=== PATIENT | female | born 2000 ===

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

== ENCOUNTER 2023-03-18 11:53 | Emergency (ER) | payer MEDICAID, SELFPAY ==
[2023-03-18 11:56] VITALS: BP 109/75; PULSE 66; RESP 18; TEMP 36.6; O2SAT 99; BMI 21.5
--- NOTE | 2023-03-18 11:58 | ED.GENADULT ---
HPI - General Adult General Chief complaint: Allergic Reaction Stated complaint: Allergic Reaction Time Seen by Provider: 03/18/23 12:14 Source: patient Mode of arrival: ambulatory Limitations: no limitations History of Present Illness HPI narrative: Patient is a 22 year old assigned female at with a history of autoimmune urticaria presenting to the emergency department today with a possible allergic reaction. Patient states that since yesterday she has felt like her tongue is swollen. Patient denies any dizziness, lightheadedness, abdominal pain, nausea, vomiting, fever, chills, blurry vision, double vision, loss of vision, chest pain, difficulty breathing, shortness of breath, back pain, night sweats, pain with urination, increased urinary frequency, increased urinary urgency, blood in her urine or stool, syncope or a near syncopal episode, recent trauma or falls, bowel incontinence, bladder incontinence, bowel retention, bladder retention, or any other complaints at this time. Patient denies any exposure to new foods or enviornmental factors. Patient states that she does follow with an entry level software engineer. Onset (ago): day(s) (1) Location: mouth Radiation: non-radiation Severity: mild Severity scale (1-10): 3 Relieving factors: none Exacerbating factors: none Associated symptoms: denies other symptoms Treatments prior to arrival: none Related Data Home Medications Medication Instructions Recorded Confirmed bupropion HCl 150 mg tablet,12 hr 150 mg PO DAILY 06/12/21 06/12/21 sustained-release (Wellbutrin SR) hydroxyzine pamoate 25 mg capsule 25 mg PO TID 06/12/21 06/12/21 melatonin 10 mg capsule 10 mg PO BEDTIME PRN 06/12/21 06/12/21 norgestimate 0.25 mg-ethinyl 1 tab PO DAILY 06/12/21 06/12/21 estradiol 35 mcg tablet (Sprintec (28)) prazosin 2 mg capsule 2 mg PO BEDTIME 06/12/21 06/12/21 prenat.vits,pillo,huu-ofst-uxhks 1 tab PO DAILY 06/12/21 06/12/21 Previous Rx's Medication Instructions Recorded acetaminophen 300 mg-codeine 30 mg 1 tab PO Q8H PRN pain #10 tabs 04/16/21 tablet prednisone 20 mg tablet 20 mg PO DAILY 7 days #7 tabs 03/18/23 Allergies Allergy/AdvReac Type Severity Reaction Status Date / Time red dye Allergy Mild hives Verified 07/10/21 11:29 Review of Systems Constitutional: Constitutional: Reports no additional constitutional complaints, Denies chills, Denies fever(s) and Denies night sweats Eyes: Eyes: Reports no additional eye complaints, Denies blurry vision, Denies change in vision, Denies diplopia, Denies eye discharge, Denies loss of vision and Denies eye pain ENT: Denies dizziness and Reports tongue swelling Cardiovascular: Cardiovascular: Reports no additional cardiovascular complaints, Denies chest pain, Denies lightheadedness, Denies Loss of Consciousness and Denies dyspnea Respiratory: Respiratory: Reports no additional respiratory complaints and Denies dyspnea Gastrointestinal: Gastrointestinal: Reports no additional gastrointestinal complaints, Denies abdominal pain, Denies melena, Denies hematochezia, Denies change in bowel habits and Denies change in stool character Genitourinary: Genitourinary: Denies hematuria, Denies urinary frequency, Denies dysuria, Denies urinary incontinence, Denies urinary hesitancy and Denies urinary urgency Musculoskeletal: Musculoskeletal: Reports no additional musculoskeletal complaints, Denies numbness and Denies tingling Neurologic: Denies dizziness, Denies loss of vision, Denies numbness and Denies tingling Psychiatric: Psychiatric: Reports no additional psychiatric complaints Endocrine: Endocrine: Reports no additional endocrine complaints Hematologic/Lymphatic: Hematologic/Lymphatic: Reports no additional hematologic/lymphatic complaints Allergic/Immunologic: Allergic/Immunologic: Reports no additional allergic/immunologic complaints and Reports tongue swelling PMFSH Past Medical History Attestation statement: The following information was validated with the patient. Source: old records reviewed and nursing notes reviewed Medical History No known health problems Surgical History History of esophagogastroduodenoscopy (EGD) Family History Family History Maternal Grandfather Diabetes HTN (hypertension) Maternal Grandmother HTN (hypertension) Mother Cancer Social History Social History Smoked in Last 30 Days: No Use of substances other than those prescribed or required for medical reasons: Yes Substance Use Type: Marijuana Substance Use Frequency: Occasionally Last Used Substance: Days (ago) Any prior treatment program specific to substance use: No Advance Directives: No Advance Directives Information Provided: No Patient : No Physical Exam ED Vital Signs: Vital Signs - 24 hr 03/18/23 11:56 Temperature 98 F Pulse Rate 66 Respiratory Rate 18 Blood Pressure 109/75 Pulse Oximetry 99 Oxygen Delivery Method Room Air BMI result Body Mass Index 21.5 Const General: cooperative, no acute distress, alert and awake Nutritional Appearance: well nourished Orientation/consciousness: patient oriented x3 Limitations: no limitations HENMT Head: Yes normal to inspection and Yes atraumatic Ears: hearing grossly normal bilaterally and external ears normal General nose exam: Normal external nose present, no nasal discharge noted and no epistaxis Face and sinus: Yes normal facial exam, No abrasion and No laceration Mouth: Normal oral and palatal mucosa present, no drooling and no muffled voice Teeth and gingiva: dentition normal Throat: Yes posterior oropharynx normal Eyes General: appearance normal, both eyes and all related structures Periorbital: periorbital findings normal Eyelids: Yes eyelids normal Conjunctivae: conjunctivae normal Pupils: Equal, round and reactive pupils present EOM: EOMs intact bilaterally Neck Neck: Yes normal visual inspection, Yes full ROM and Yes no lymphadenopathy Chest Chest palpation & inspection: normal inspection of the chest Resp Effort & Inspection: normal respiratory effort and able to speak in complete sentences GI Inspection: Yes normal to inspection Neuro General: patient oriented x3 and moves all extremities Cranial nerves: Yes Equal, round and reactive pupils present Cognition (Neuro): normal cognition Motor exam (neuro): 5/5 motor strength present throughout Sensory Exam: Normal double simultaneous stimulation for sensation Coordination: [id number] test normal Extrem General: Yes normal to inspection, Yes full ROM and Yes capillary refill normal Psych Appearance: grossly normal Mental Status: mental status grossly normal Affect: normal affect Attitude: cooperative Thought process: Normal thought process present Thought content: Normal thought content present Insight: Good insight present (Psych) Course Course Course Narrative: This is an RME: Additional HPI, ROS, PE not included below will be deferred to primary provider. 22 year old female presents w/ complaints of allergic reaction since yesterday feels like her tongue is swollen. Hasnt taken anything. Followed by allergy doc has been told this is autoimmune. Unsure what shes allergic to. Pe- patent airway speaking in full sentences. Plan- benadryl Medications Administered Discontinued Medications Generic Name Dose Route Start Last Admin Trade Name Gulshan PRN Reason Stop Dose Admin Diphenhydramine HCl 50 mg 03/18/23 11:57 03/18/23 12:12 Diphenhydramine Hcl 25 Mg Capsule PO 03/18/23 11:58 50 mg ONCE ONE Administration Medical Decision Making Medical Decision Making [facility] Narrative: Patient is a 22 year old assigned female at with a history of autoimmune urticaria presenting to the emergency department today with a swollen tongue sensation. Patient's physical exam was unremarkable. Patient's tongue appeared normal. I explained my physical exam findings to the patient. I answered all questions asked by the patient. Patient received Benadryl which she stated helped her symptoms significantly. I stressed the importance of the patient taking her medication as prescribed. I stressed the importance of the patient following up with her primary care provider and her entry level software engineer. I stressed the importance of the patient returning to the emergency department immediately if her symptoms were to worsen or if she were to develop any dizziness, shortness of breath, difficulty breathing, chest pain, blurry vision, loss of vision, nausea, vomiting, abdominal pain, fever, chills, back pain, or any other complaints. Patient verbalized agreement and understanding with this treatment plan and discharge. Differential Diagnosis Differential Diagnoses: The differential diagnosis associated with the presentation includes Allergic reaction Swollen tongue sensation Anxiety Discharge Plan Discharge Clinical Impression: Allergic reaction Patient Disposition: Home, Self-Care Instructions: General Allergic Reaction (ED) Additional Instructions: Take benadryl over the counter. Follow up with your primary care provider and your entry level software engineer. Return to the emergency department immediately if your symptoms worsen or if you develop any dizziness, shortness of breath, difficulty breathing, chest pain, blurry vision, loss of vision, nausea, vomiting, abdominal pain, fever, chills, back pain, or any other complaints. Prescriptions: New prednisone 20 mg tablet 20 mg PO DAILY 7 Days Qty: 7 0RF No Action acetaminophen-codeine 300-30 mg tablet 1 tab PO Q8H PRN (Reason: pain) Qty: 10 0RF bupropion HCl [Wellbutrin SR] 150 mg tablet sustained-release 12 hr 150 mg PO DAILY hydroxyzine pamoate 25 mg capsule 25 mg PO TID melatonin 10 mg capsule 10 mg PO BEDTIME PRN norgestimate-ethinyl estradiol [Sprintec (28)] 0.25-35 mg-mcg tablet 1 tab PO DAILY prenat.vits,pillo,khe-ecil-zqpjk Tablet 1 tab PO DAILY prazosin 2 mg capsule 2 mg PO BEDTIME Referrals: Shannon Wade FNP [Primary Care Provider] - Stand Alone Forms: Work/School Release Interventions: ED Discharge Assessment Last Done: 03/18/23 12:34 Discharge Date/Time: 03/18/23 12:35 Print Language: Urdu
[2023-03-18] MEDS: diphenhydrAMINE HCL 25 MG CAPSULE 50 MG PO (12:12)
== END 2023-03-18 12:35 | disposition home or self-care (01) ==
PROVIDERS: Emergency Provider Emergency Medicine Emergency Medical Services; PCP Registered Nurse
DX: T78.40XA Allergy, unspecified, initial encounter (principal); X58.XXXA Exposure to other specified factors, initial encounter
CPT/HCPCS: 99283; 99284

== ENCOUNTER 2023-03-28 14:05 | Outpatient (REF) | payer MEDICAID, SELFPAY ==
[2023-03-28 18:13] LABS: HCG Quantitative 7 mIU/mL
== END 2023-03-28 14:06 | disposition home or self-care (01) ==
LOC: HO.HHCL 14:05
PROVIDERS: Visit Provider Registered Nurse
DX: Z34.90 Encounter for supervision of normal pregnancy, unspecified, unspecified trimester (principal)
CPT/HCPCS: 36415; 84702

== ENCOUNTER 2023-04-04 13:47 | Outpatient (REF) | payer MEDICAID, SELFPAY ==
[2023-04-04 16:45] LABS: HCG Quantitative 4 mIU/mL
== END 2023-04-04 13:48 | disposition home or self-care (01) ==
LOC: HO.HHCL 13:47
PROVIDERS: Visit Provider Registered Nurse
DX: Z32.01 Encounter for pregnancy test, result positive (principal)
CPT/HCPCS: 36415; 84702

== ENCOUNTER 2023-04-08 14:39 | Outpatient (REF) | payer MEDICAID, SELFPAY ==
[2023-04-08 16:11] LABS: MANUAL DIFF FLAG NO
[2023-04-08 16:28] LABS: Basophils Absolute Auto 0.1 X10*3/uL (0.0-0.2); Basophils Percent Auto 0.6 % (0-2); Eosinophils Absolute Auto 0.1 X10*3/uL (0.0-0.4); Eosinophils Percent Auto 0.7 % (0-4); Hematocrit 39.3 % (37.0-47.0); Hemoglobin 13.2 g/dl (12.0-16.0); Imm Gran Abs Auto 0.04 X10*3/uL (0.00-0.03); Imm Gran Pct Auto 0.4 % (0.0-0.4); Lymphocytes Absolute Auto 1.7 X10*3/uL (1.2-4.9); Lymphocytes Percent Auto 16.7 % (20-40); Mean Corpuscular HGB Conc 33.6 g/dl (31.0-35.0); Mean Corpuscular Hemoglobin 32.4 pg (27.0-33.0); Mean Corpuscular Volume 96.6 fL (80.0-98.0); Mean Platelet Volume 11.4 fL (9.4-12.3); Monocytes Absolute Auto 0.5 X10*3/uL (0.1-1.2); Neutrophils Absolute Auto 7.8 x10*3/uL (2.0-8.3); Neutrophils Percent Auto 76.6 % (45-73); Platelet Count 200 X10*3/uL (160-400); Red Blood Count 4.07 X10*6/uL (4.20-5.50); Red Cell Distribution Width 12.8 % (11.0-16.0); White Blood Count 10.1 X10*3/uL (4.8-10.8)
[2023-04-08 16:46] LABS: HCG Quantitative 3 mIU/mL
[2023-04-08 18:18] LABS: Alanine Aminotransferase 6 U/L (0-31); Albumin Level 4.4 g/dL (3.5-5.0); Alkaline Phosphatase 43 U/L (39-117); Anion Gap 12 (12-20); Aspartate Amino Transferase 14 U/L (5-31); Bilirubin Total 0.7 mg/dL (0.0-1.0); Blood Urea Nitrogen 8 mg/dL (9-16); Calcium 9.6 mg/dL (8.4-10.2); Carbon Dioxide 22 mmol/L (22-29); Chloride 105 mmol/L (96-108); Estimated Glomerular Filt Rate > 60; Glucose Random 73 mg/dL (60-115); Iron 191 mcg/dL (30-160); Percent Iron Saturation 61 % (15-50); Sodium 135 mmol/L (135-145); Total Iron Binding Capacity 313 mcg/dL (228-428); Total Protein 7.9 g/dL (6.5-8.0); Unsaturated Iron Binding 122 ug/dL
[2023-04-08 18:34] LABS: Ferritin 58 ng/mL (10-122); Free T4 (Free Thyroxine) 0.88 ng/dL (0.71-1.85)
[2023-04-08 21:36] LABS: Prothrombin Time 11.6 SEC (10.0-13.1)
[2023-04-09 07:25] LABS: CT PCR NOT DETECTED (Not Detect.); NG PCR NOT DETECTED (Not Detect.)
[2023-04-11 08:33] LABS: Syphilis Screen Nonreactive (Nonreactive)
[2023-04-11 09:05] LABS: HBS Num1 > 1000.00 mIU/mL (0-7.99); HBc Num1 0.08 S/CO (0.00-0.79); HBsAGNum1 0.33 S/CO (0.00-0.99); HIV AB/AG Nonreactive (Nonreactive); HIV Num 1 0.05 S/CO (0.00-0.99); Hepatitis B Core Antibody Nonreactive (Nonreactive); Hepatitis B Surface Antigen Negative (Negative); ~Hepatitis B Surface Antibody REACTIVE (Nonreactive)
[2023-04-11 10:09] LABS: ~HepC Num1 0.11 S/CO (0.00-0.79); ~Hepatitis C Antibody Nonreactive (Nonreactive)
== END 2023-04-08 14:40 | disposition home or self-care (01) ==
LOC: HO.HHCL 14:39
PROVIDERS: Visit Provider Student in an Organized Health Care Education/Training Program
DX: N93.9 Abnormal uterine and vaginal bleeding, unspecified (principal)
CPT/HCPCS: 0353U; 36415; 80053; 82728; 83540; 84439; 84702; 85025; 85610; 85730; 86704; 86706; 86780; 86803; 87340; 87389

== ENCOUNTER 2023-04-08 16:25 | Outpatient (REF) | payer MEDICAID, SELFPAY ==
--- NOTE | ~2023-04-08 | US_ITS ---
EXAMINATION: US PELVIS CLINICAL INFORMATION: Worsening heavy bleeding status-post . COMPARISON: CT abdomen and pelvis dated 04/16/2021. TECHNIQUE: Ultrasound of the pelvis is performed using both transabdominal and transvaginal transducers along with Doppler. Transvaginal imaging is performed due to inadequate visualization transabdominally. FINDINGS: Uterus: The uterus is anteverted and measures 8.1 x 3.2 x 4.4 cm. The uterus is anteverted and anteflexed. The double wall endometrial thickness is 0.4 mm. There is a small amount of nonspecific free fluid within the fundal portion of the endometrial canal. There is some heterogeneity and vascularity of the endometrial stripe, without focal retained products of conception. The uterus is smooth in contour and has normal myometrial echogenicity. No visible fibroid. Adnexa: Both ovaries are visualized. There is normal color flow to the adnexa. There is no ovarian torsion. There is no pelvic ascites or fluid collection. Right ovary measures 2.7 x 2.4 x 2.5 cm, volume 8.5 mL. Left ovary measures 4.4 x 4.0 x 3.9 cm, volume 36.0 mL. The left ovary contains a 3.7 x 3.4 x 3.3 cm benign, simple cyst. US/US pelvic and transvaginal IMPRESSION: 1. A small amount of nonspecific free fluid is seen within the endometrial canal. 2. There demonstrate thickness is within normal limits. No retained products of conception are seen. 3. A 3.7 cm benign, simple dominant left ovarian cyst is seen, for which no imaging follow-up is recommended.
== END 2023-04-08 16:26 | disposition home or self-care (01) ==
LOC: HO.US 16:25
PROVIDERS: Visit Provider Student in an Organized Health Care Education/Training Program
DX: N93.9 Abnormal uterine and vaginal bleeding, unspecified (principal)
CPT/HCPCS: 76830; 76856

== ENCOUNTER 2023-05-12 16:18 | Outpatient (REF) | payer MEDICAID, SELFPAY ==
[2023-05-12 17:22] LABS: MANUAL DIFF FLAG NO
[2023-05-12 17:33] LABS: Basophils Absolute Auto 0.1 X10*3/uL (0.0-0.2); Basophils Percent Auto 0.7 % (0-2); Eosinophils Absolute Auto 0.1 X10*3/uL (0.0-0.4); Eosinophils Percent Auto 1.3 % (0-4); Hematocrit 41.4 % (37.0-47.0); Imm Gran Abs Auto 0.02 X10*3/uL (0.00-0.03); Imm Gran Pct Auto 0.3 % (0.0-0.4); Lymphocytes Absolute Auto 1.9 X10*3/uL (1.2-4.9); Lymphocytes Percent Auto 24.3 % (20-40); Mean Corpuscular HGB Conc 33.8 g/dl (31.0-35.0); Mean Corpuscular Hemoglobin 32.3 pg (27.0-33.0); Mean Corpuscular Volume 95.6 fL (80.0-98.0); Mean Platelet Volume 10.6 fL (9.4-12.3); Monocytes Absolute Auto 0.4 X10*3/uL (0.1-1.2); Monocytes Percent Auto 4.9 % (2-11); Neutrophils Absolute Auto 5.2 x10*3/uL (2.0-8.3); Neutrophils Percent Auto 68.5 % (45-73); Platelet Count 243 X10*3/uL (160-400); Red Blood Count 4.33 X10*6/uL (4.20-5.50); Red Cell Distribution Width 12.4 % (11.0-16.0); White Blood Count 7.6 X10*3/uL (4.8-10.8)
[2023-05-12 17:46] LABS: Iron 146 mcg/dL (30-160); Percent Iron Saturation 47 % (15-50); Total Iron Binding Capacity 310 mcg/dL (228-428); Unsaturated Iron Binding 164 ug/dL
[2023-05-12 18:01] LABS: Ferritin 45 ng/mL (10-122); HCG Quantitative < 2 mIU/mL
[2023-05-16 17:43] LABS: Lyme Blot 2.24 index
[2023-05-17 11:43] LABS: Lyme Abs Screen POSITIVE
[2023-05-17 14:54] LABS: 18 KD (IgG) Band REACTIVE; 23 KD (IgG) Band REACTIVE; 23 KD (IgM) Band NON-REACTIVE; 28 KD (IgG) Band NON-REACTIVE; 30 KD (IgG) Band NON-REACTIVE; 39 KD (IgM) Band NON-REACTIVE; 39KD (IgG) Band REACTIVE; 41 KD (IgM) Band REACTIVE; 41KD (IgG) Band NON-REACTIVE; 45 KD (IgG) Band NON-REACTIVE; 58 KD (IgG) Band NON-REACTIVE; 66 KD (IgG) Band NON-REACTIVE; 93 KD (IgG) Band NON-REACTIVE; Lyme IgG Blot Interp NEGATIVE (NEGATIVE); Lyme IgM Blot Interp NEGATIVE (NEGATIVE)
== END 2023-05-12 16:19 | disposition home or self-care (01) ==
LOC: HO.HHCL 16:18
PROVIDERS: Visit Provider Registered Nurse
DX: N93.9 Abnormal uterine and vaginal bleeding, unspecified (principal)
CPT/HCPCS: 36415; 82728; 83540; 84702; 85025; 86617; 86618; 87086; 87088; 87186

== ENCOUNTER 2023-06-20 11:06 | Outpatient (REF) | payer MEDICAID, SELFPAY ==
[2023-06-20 15:07] LABS: Alanine Aminotransferase 11 U/L (0-31); Albumin Level 4.4 g/dL (3.5-5.0); Alkaline Phosphatase 36 U/L (39-117); Aspartate Amino Transferase 15 U/L (5-31); Bilirubin Direct 0.2 mg/dL (0.0-0.5); Bilirubin Total 0.5 mg/dL (0.0-1.0); Total Protein 7.4 g/dL (6.5-8.0)
[2023-06-20 15:15] LABS: Hepatitis A Antibody IgM 0.18 Index (0-0.79); ~Hepatitis A Antibody IgM Nonreactive (Nonreactive)
[2023-06-20 15:19] LABS: HBS Num1 > 1000.00 mIU/mL (0-7.99); HBc Num1 0.08 S/CO (0.00-0.79); HBsAGNum1 0.43 S/CO (0.00-0.99); Hepatitis B Core Antibody Nonreactive (Nonreactive); Hepatitis B Surface Antigen Negative (Negative); ~HepC Num1 0.06 S/CO (0.00-0.79); ~Hepatitis B Surface Antibody REACTIVE (Nonreactive); ~Hepatitis C Antibody Nonreactive (Nonreactive)
== END 2023-06-20 11:07 | disposition home or self-care (01) ==
LOC: HO.CHCLDS 11:06
PROVIDERS: Visit Provider Registered Nurse
DX: R16.0 Hepatomegaly, not elsewhere classified (principal)
CPT/HCPCS: 36415; 80076; 86704; 86706; 86709; 86803; 87340

== ENCOUNTER 2023-07-22 13:54 | Outpatient (REF) | payer MEDICAID, SELFPAY ==
[2023-07-23 16:24] LABS: C. trachomatis RNA TMA NOT DETECTED (NOT DETECTED); Candida glabrata RNA NOT DETECTED (NOT DETECTED); Candida species RNA DETECTED (NOT DETECTED); N. gonorrhoeae RNA TMA NOT DETECTED (NOT DETECTED); Trichomonas vaginalis RNA NOT DETECTED (NOT DETECTED)
== END 2023-07-22 13:55 | disposition home or self-care (01) ==
LOC: HO.CHCLNP 13:54
PROVIDERS: Visit Provider Registered Nurse
DX: N94.9 Unspecified condition associated with female genital organs and menstrual cycle (principal)
CPT/HCPCS: 36415; 81513; 87481; 87491; 87591; 87661

== ENCOUNTER 2023-10-10 16:24 | Outpatient (REF) | payer MEDICAID, SELFPAY ==
[2023-10-10 20:04] LABS: Influenza A PCR NEGATIVE (Negative); Influenza B PCR NEGATIVE (Negative); Resp Syncy Virus RNA Qual PCR NEGATIVE (Negative); SARS COV2 PCR INHOUSE NEGATIVE (Negative)
[2023-10-11 22:44] LABS: C. trachomatis RNA TMA NOT DETECTED (NOT DETECTED); Candida glabrata RNA NOT DETECTED (NOT DETECTED); Candida species RNA NOT DETECTED (NOT DETECTED); N. gonorrhoeae RNA TMA NOT DETECTED (NOT DETECTED); Trichomonas vaginalis RNA NOT DETECTED (NOT DETECTED)
== END 2023-10-10 16:25 | disposition home or self-care (01) ==
LOC: HO.CHCLNP 16:24
PROVIDERS: Visit Provider Registered Nurse
DX: Z01.419 Encounter for gynecological examination (general) (routine) without abnormal findings (principal); R09.81 Nasal congestion; Z11.3 Encounter for screening for infections with a predominantly sexual mode of transmission
CPT/HCPCS: 0241U; 81513; 87481; 87491; 87591; 87661; 88142

== ENCOUNTER 2024-01-16 16:29 | Outpatient (REF) | payer MEDICAID, SELFPAY ==
[2024-01-16 18:56] LABS: Appearance Urine Cloudy; Color Urine Yellow; Glucose Urine UA Negative (Negative); Leukocyte Esterase Urine Small (1+) (Negative); Nitrite Urine Negative (Negative); PH 6.5 (5.0-9.0); UMIC TRIGGER UACC YES; Urine Blood Trace (Negative); Urine Ketones Negative (Negative); Urine Protein Negative (Neg-Trace)
[2024-01-16 19:27] LABS: Bacteria Urine 4+ (None Seen); Hyaline Casts Urine 0-2 /LPF (0-2); Squamous Epithelial Cell Urine 0-2 /HPF (0-2); UACC Culture Trigger YES; WBC Urine >50 /HPF (0-5)
== END 2024-01-16 16:30 | disposition home or self-care (01) ==
LOC: HO.CHCLNP 16:29
PROVIDERS: Visit Provider Registered Nurse
DX: R39.9 Unspecified symptoms and signs involving the genitourinary system (principal)
CPT/HCPCS: 81001; 81003; 87086; 87088; 87186

== ENCOUNTER 2024-03-16 12:34 | Outpatient (REF) | payer MEDICAID, SELFPAY ==
[2024-03-16 14:21] LABS: MANUAL DIFF FLAG NO
[2024-03-16 14:24] LABS: Basophils Absolute Auto 0.1 X10*3/uL (0.0-0.2); Basophils Percent Auto 0.9 % (0-2); Eosinophils Absolute Auto 0.1 X10*3/uL (0.0-0.4); Eosinophils Percent Auto 1.4 % (0-4); Hematocrit 40.6 % (37.0-47.0); Hemoglobin 13.9 g/dl (12.0-16.0); Imm Gran Abs Auto 0.02 X10*3/uL (0.00-0.03); Imm Gran Pct Auto 0.3 % (0.0-0.4); Lymphocytes Absolute Auto 1.9 X10*3/uL (1.2-4.9); Lymphocytes Percent Auto 29.3 % (20-40); Mean Corpuscular HGB Conc 34.2 g/dl (31.0-35.0); Mean Corpuscular Volume 90.4 fL (80.0-98.0); Mean Platelet Volume 11.2 fL (9.4-12.3); Monocytes Absolute Auto 0.4 X10*3/uL (0.1-1.2); Monocytes Percent Auto 5.5 % (2-11); Neutrophils Percent Auto 62.6 % (45-73); Platelet Count 203 X10*3/uL (160-400); Red Blood Count 4.49 X10*6/uL (4.20-5.50); Red Cell Distribution Width 13.2 % (11.0-16.0); White Blood Count 6.4 X10*3/uL (4.8-10.8)
[2024-03-16 18:16] LABS: Alanine Aminotransferase 10 U/L (0-31); Albumin Level 4.9 g/dL (3.5-5.0); Alkaline Phosphatase 43 U/L (39-117); Anion Gap 13 (12-20); Aspartate Amino Transferase 15 U/L (5-31); Bilirubin Total 0.4 mg/dL (0.0-1.0); Blood Urea Nitrogen 11 mg/dL (9-16); Calcium 9.8 mg/dL (8.4-10.2); Carbon Dioxide 22 mmol/L (22-29); Chloride 109 mmol/L (96-108); Estimated Glomerular Filt Rate > 60; Glucose Random 80 mg/dL (60-115); Potassium 3.8 mmol/L (3.3-5.1); Sodium 140 mmol/L (135-145)
[2024-03-16 18:33] LABS: TSH reflex Free T4 0.76 uIU/mL (0.32-4.0); Vitamin D 25-OH Total 38.5 ng/mL (>30)
[2024-03-16 18:46] LABS: Folate 13.4 ng/mL (> or = 4.0); Vitamin B12 337 pg/mL (200-900)
[2024-03-16 21:12] LABS: Monotest Negative (Negative)
[2024-03-20 17:57] LABS: EBV-NA IgG Index >600.00 U/mL; EBV-VCA IgM Ab <36.00 U/mL
== END 2024-03-16 12:35 | disposition home or self-care (01) ==
LOC: HO.CHCLDS 12:34
PROVIDERS: Visit Provider Registered Nurse
DX: L65.9 Nonscarring hair loss, unspecified (principal); Z87.898 Personal history of other specified conditions
CPT/HCPCS: 36415; 80053; 82306; 82607; 82746; 84443; 85025; 86308; 86664; 86665

== ENCOUNTER 2024-11-29 15:10 | Outpatient (REF) | payer MEDICAID, SELFPAY ==
--- OUTSIDE RECORDS SUMMARY | 2024-11-29 18:53 | XMS_ITS | Clinical Summary ---
Author Organization [employer] Address [address] [facility] [address] [place] [address] Care Team Providers Care Dietitian Therapeutic Name Role Phone Shannon Wade GENERAL COUNSELOR Primary Care Provider [phone] Allergies Active Allergy Reactions Criticality Noted Date Comments Lamotrigine Rash High 03/18/2024 Red Dye 06/18/2024 Medications * This document contains information received from the source organization and may not represent a complete record from that organization. EPINEPHrine (Epipen) 0.3 MG/0.3ML injection syringe Inject 0.3 mg into the shoulder, thigh, or buttocks. 8 Active Spacer/Aero-Hol ding Chambers (Compact Space Chamber) device USE WITH ALBUTEROL 2 Active buPROPion XL (Wellbutrin XL) 150 MG 24 hr tablet Take 300 mg by mouth in the morning. 3 Active cyproheptadine (Periactin) 4 MG tablet Take 1 tablet by mouth in the morning. 3 Active hydrOXYzine pamoate (Vistaril) 25 MG capsule TAKE 1 CAPSULE BY MOUTH ONCE DAILY NEEDED FOR ANXIETY / PANIC ATTACK 3 Active prazosin (Minipress) 1 MG capsule Take 1 capsule (1 mg) by mouth at bedtime. 30 capsule 1 3 Active acetaminophen (Tylenol) 500 MG tablet Take 2 tablets (1,000 mg) by mouth every 6 (six) hours if needed for moderate pain or fever for up to 25 doses. 30 tablet 4 Active valACYclovir (Valtrex) 500 MG tabletIndicatio ns:HSV-1 (herpes simplex virus 1) infection Take 1 tablet (500 mg) by mouth Once daily. 90 tablet 2 4 Active hydrOXYzine pamoate (Vistaril) 50 MG capsuleIndicati ons:Anxiety Take 1 capsule (50 mg) by mouth every 6 (six) hours if needed for itching for up to 10 days. 30 capsule 4 Active cyclobenzaprine (Flexeril) 10 MG tabletIndicatio ns:Neck muscle spasm Take 1 tablet (10 mg) by mouth 3 times daily for 10 days. 30 tablet 4 Active OXcarbazepine (Trileptal) 150 MG tablet Take 150 mg by mouth Once per day. 4 Active multivitamin () 27-0.8 MG tablet Take 1 tablet by mouth Once per day. 90 tablet 3 4 Active Minoxidil (Rogaine Mens) 5 % foamIndications :Telogen effluvium To apply to the scalp once a day 60 g 2 4 Active acyclovir (Zovirax) 5 % ointment Apply topically 6 (six) times a day. For one week as needed for cold sore. Space applications every 3 hours. 15 g 2 5 Active valACYclovir (Valtrex) 500 MG tablet Take 1 tablet (500 mg) by mouth 2 times daily for 3 days. As needed for outbreak 6 tablet 2 5 12/03/19 25 Active Active Problems Problem Noted Date Diagnosed Date Sleep difficulties 06/21/2024 Overview (06/21/2024): 05/28/24: Sleep Study completed at [facility]. Impresion: very mild sleep apnea. Can try AutoCPAP 6-15. Consider medication side effects and disorders of hypersomnia such as narcolepsy and idiopathic hypersomnia. Referral to Sleep Medicine for further eval / management 06/21/24 On Depo-Provera for contraception 10/16/2023 Assessment & Plan (10/16/2023 8:23 PM EST): ?? Next depo window: 12/01 - 12/30/23 ?? Message sent to [facility] RN team to add to schedule ?? Standing order: 150mg IM Q11-15 weeks x 1 year (10/16/23-10/16/24) Nasal septal deviation 07/30/2023 Assessment & Plan (06/21/2024 7:17 AM EDT): -Previous history of surgery through 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, will request notes -left nostril continues to be occluded/obstructed -pt will attempt to call to schedule follow up appt with surgeon. If not successful, new referral to same or other location may be placed for further eval Microscopic hematuria 06/23/2023 Assessment & Plan (06/23/2023 5:13 PM EDT): Referral to Urology for persistent microscopic hematuria on 06/23/23 Bipolar 1 disorder 04/08/2023 Assessment & Plan (01/19/2024 11:26 AM EDT): Reports mental health currently stable/improved. No active SI/HI/thoughts of self harm Followed through [facility] therapist and psychiatrist Current med regimen through psych: Bupropion 300mg daily Prazosin 2mg nightly Previous medications: (DC as of January 2024) Assessment & Plan (11/24/2023 11:30 AM EST): Exacerbation of symptoms of mental health, no active SI/HI/thoughts of self harm Followed through [facility] therapist and psychiatrist Crisis information reviewed Discussed possibility of respite/partial hospitalization/?IOP. Offered BE tele today, although prefers to have in person. Scheduled for Tuesday11/21/23. Crisis or ED over the weekend if needed. Assessment & Plan (09/09/2023 12:39 PM EST): PROGRESS NOTE: ID: Lisa is a 23 y.o. White straight-identified cis-female (pronouns she/her/hers) with previous documented hx of Depression, Anxiety, and Bipolar Disorder services including [facility] Psychotherapy and psychopharmacology, who presents for Anxiety, Depression, and Bipolar. Currently on her second undesired . She lives with multiple family members. Currently working at [employer] although she has not gone to work due to lack of motivation. Connected with through [facility], not taking medication due to . During IBH Consult Lisa presenting with depressed mood, loss of interests/pleasure , changes in sleep difficulty falling asleep, difficulty staying asleep , and restless, unsatisfying sleep, change in appetite or weight reduce appetite, psychomotor retardation, trouble concentrating, thoughts of worthlessness or guilt, thoughts about or suicide, fatigue/loss of energy, excessive worry/anxiety, difficulty controlling worry, restless/keyed up/On edge, easily fatigued, difficulty concentrating/Mind going blank , irritability, and sleep disturbance difficulty falling asleep, difficulty staying asleep , and restless, unsatisfying sleep, and Identity disturbance, Affective instability, Feelings of emptiness, Intense anger, and Other: fast speech, racing thoughts, trouble with concentration, Hx of bipolar in her family, Dx with Bipolar on 03/2023. Symptoms has been present for a period of 18+ mo, per patient, depression and anxiety she has had since 14 y/o for Bipolar she was recently diagnosed this year, in the context of having second undesired , scared of in clinic procedure, hopelessness, and guilt . Hx of taking pills to ended first but she had a lot of trauma from first episode and when she tried this time the pills didn't work. She schedule in clinic procedure but is concern about it. PLAN: Continue with current services (defined as services in the past 12 months) Behavioral Health Integration Plan Patient Self Plan: Patient to utilize skills provided in intervention , Patient to reach out to [facility] team as needed, Comply with medication , and Patient to follow-up with external team Assessment & Plan (07/30/2023 6:54 PM EST): ?? Following with psych/mental health team. Psych meds took priority today as pt has been off of meds for 2 weeks (abrupt withdrawal d/t lapse in insurance). Unlikely to expect call back on a Tuesday from pt's psych prescriber. Spoke with [facility] pharmacy and came up with the following plan: ?? Maintenance medication regimen through psych: ?? Hydroxyzine 25mg PRN ?? Prazosin 5mg nightly ?? Oxcarbazepine 300mg daily ?? Bupropion 300mg in the morning ?? Melatonin 10mg nightly Start Bupropion at 150mg dose x 2 weeks then taper up to 300mg. Start Prazosin at 1mg nightly, then titrate upwards per psych direction Other medications may be restarted at current doses Encouraged to follow up with psych prescriber regarding further instructions for dose titration Med safety and SE reviewed Assessment & Plan (06/23/2023 5:15 PM EDT): ?? Following with mental health team. Medical release form signed in order for PCP to communicate with psych team regarding appetite and alternative for cyproheptadine ?? Accommodation letters for work generated during appt ?? Current medication regimen through psych: ?? Hydroxyzine 25mg PRN ?? Prazosin 5mg nightly ?? Oxcarbazepine 300mg daily ?? Bupropion 300mg in the morning Genital herpes 04/08/2023 Overview (2023): ?? 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 Uterine bleeding, dysfunctional 04/08/2023 Overview (01/19/2024): Referral to [facility] PUBLICATION DESIGNER placed 01/19/24 Assessment & Plan (01/19/2024 11:22 AM EDT): - History of menorrhagia with saturating > 1 pad/hour and passing blood clots - [facility] ED eval in November 2023, pelvic US unremarkable aside from ovarian cyst - Pt continues on depo, HCG neg in office today - CBC November 2023 WNL - ED/urgent care precautions reviewed Assessment & Plan (2023 1:27 PM EDT): - Medical 02/08/2023 that led to persistent vaginal bleeding, which pt reports has now majority resolved - Pt on combination contraception - Referred to PUBLICATION DESIGNER - Hematuria during Walk in Center eval, although likely from vaginal bleeding, Will repeat urine studies today - Recheck labs: CBC, iron studies, HCG - Will also check for lyme dx given persistent fatigue. Pt denies any aching or joint pains, no known rash or tick bite - ED/urgent care precautions reviewed Assessment & Plan (04/08/2023 5:10 PM EDT): Pt w ongoing vaginal bleeding since 02/08/2023 -2 mo ago since medical Pt on combination contraception UA today large blood but pt has significant vaginal bleeding so most likely contamination from vaginal bleeding . preg test in urine is neg -pt denies alarming symptoms from bleeding but its concerning ongoing heavy periods -initially expected after medical absorption but seems to be for too long. -referred x pelvic/TV US -- DOMINGA Teague got apt x today -will do labs including x STIs by pt request and x anemia and start iron daily x now w vit C -will do coag time -reports usually has some prolong bleeding when has cuts - denies fx hx of platelet of coagulation dx -referred to PUBLICATION DESIGNER -alarm signs and symptoms in case needs to go to ED explained in length to pt -to f up w PCP ,if again thinks seeing blood urine will need to further eval - seems most likely from vaginal area Anxiety 01/04/2023 Large liver 01/04/2023 Assessment & Plan (06/23/2023 5:09 PM EDT): -History noted in record -Check liver panel and testing for Hepatitis A, B, C Myopia 08/11/2018 Depressive disorder 12/18/2016 Resolved Problems Problem Noted Date Diagnosed Date Resolved Date Allergic reaction to dye 01/04/202310/2023 COVID-19 01/04/2023 2023 Encounters Date Type Department Care Team Description 11/29/2024 4:00 PM EDT Office Visit [facility] [address] [place] [address] Manjula Winter DO Labial lesion (Primary Dx); Dysuria; Herpes labialis 11/20/2024 11:15 AM EST Telemedicine [facility] [address] [place] [address] Roosevelt Mendes MD Sleep difficulties (Primary Dx) 11/20/2024 Travel 11/19/2024 Telephone [facility] MEDICINE [address] [place] [address] Shannon Wade FNP Nurse Triage 11/01/2024 Telephone [facility] [address] [place] [address] Shannon Wade FNP Appointment 10/05/2024 2:00 PM EST Office Visit [facility] ADULT DENTAL [address] [place] [address] Alexis Medina Dental calculus (Primary Dx) from Last 3 Months Immunizations Name Administration Dates Next Due DTaP 05/24/2006, 4,06/11/2003,05/09,2002 HPV, Quadrivalent 01/07/2015,09/04/2014,07/04/20 14 Hep A, ped/adol, 2 dose 06/01/2017,01/02/2016 Hep B, Adolescent or Pediatric 8,06/11/2003,05/09/2003,12/19 Hib (HbOC) 06/02/2004, 3,2002,08/01 IPV 05/24/2006, 3,2002,08/01 Influenza injectable quadriv alent preservative free 06/20/2023,06/09/2022,08/10/2019,07/21,10/10/2015 Influenza live intranasal qu adrivalent LIAV4 07/04/2014 Influenza, IIV3, injectable 09/30/2008 MMR 05/24/2006,06/11/2003 Meningococcal MCV4P ACYW-135 07/21/2018,07/04/20 14 Pfizer Covid-19 Vaccine 12+ 12/25/2021, 2 Pfizer Covid-19 Vaccine 12+ oralia-sucrose (Johnson Cap) 12/25/2021,12/03/2021 Pneumococcal Conjugate PCV 7 07/11/2003,06/11/20 03,05/09/2003 Tdap 07/04/2014 Varicella 09/30/2008,04/28/2005 Social History Tobacco Use Types Packs/Day Years Used Date Smoking Tobacco: Never Passive Smoke Exposure: Never Smokeless Tobacco: Never Tobacco Cessation:Counseling Given: Not Answered Alcohol Use Standard Drinks/Week Comments Never 0 (1 standard drink = 0.6 oz pur e alcohol) Depression Answer Date Recorded Patient Health Questionnaire-9 Score 25 11/18/2023 Patient Health Questionnaire-9 Score 25 11/18/2023 Last PHQ-9: Questionnaire Data Not on file 0 11/18/2023 Housing Stability Answer Date Recorded What is your housing situation today? I have mautila corrales 07/04/[address] you li ve. Do you have problems with any of the following? None of the above 07/04/2023 Food Insecurity Answer Date Recorded Within the past 12 months, y ou worried that your food would run out before you got money to buy more: Often true 01/06/2024 Within the past 12 months,th e food you bought just didn't last and you didn't have enough money to get more: Often true Transportation Answer Date Recorded In the past 12 months, has l ack of transportation kept you from medical appts, meetings, work or from getting things needed for daily living? Yes, it has kept me from medical appointments or getting medications. 01/06/2024 Utilities Answer Date Recorded In the past 12 months, has t he electric, gas, oil or water company threatened to shut off services in your home? No 07/04/2023 Depression Answer Date Recorded Patient Health Questionnaire-2 Score 5 11/18/2023 Comments No Sex and Gender Information Value Date Recorded Sex Assigned at Female 07/19/2022 10:20 AM EDT Legal Sex Female 10:20 AM EDT Gender Identity Female 07/19/2022 10:20 AM EDT Sexual Orientation Straight 07/19/2022 10 :20 AM EDT Last Filed Vital Signs Vital Sign Reading Time Taken Comments Blood Pressure 121/76 11/29/2024 2:02 PM EDT Pulse 69 11/29/2024 2:02 PM EDT Temperature 36.6 ??C (97.9 ??F) 11/29/2024 2:02 PM ED T Respiratory Rate 16 11/29/2024 2:02 PM EDT Oxygen Saturation 99% 11/29/2024 2:02 PM EDT Inhaled Oxygen Concentration - - Weight 55.3 kg (122 lb) 11/29/2024 2:02 PM EDT Height 165.1 cm (5' 5 ) 06/26/2024 10:31 AM EDT Body Mass Index 20.3 06/26/2024 10:31 AM EDT Plan of Treatment Upcoming Encounters Date Type Department Care Team (Late st Contact Info) Description 01/14/2025 10:30 AM EDT Office Visit [facility] [address] [place] [phone] Shannon Wade FNP [address] [place] [address] Health Maintenance Due Date Last Done Comments Alcohol/Substance Use Screening 2014 Family Planning (PISQ) 2017 COVID-19 Vaccine ( season) 2024 12/13/2022, 12/25/2021, 12/25/2021, Additional history exists Depression Monitoring (PHQ-9) 05/20/2024 11/18/2023, 11/18/2023 Influenza Vaccine (#1) 2024 , 06/09/2022, 08/10/2019, Additional history exists DTaP/Tdap/Td Vaccines (7 - Td or Tdap) 07/04/2024 07/04/2014, 05/24/2006, 06/02/2004, Additional history exists Chlamydia and Gonorrhea Screening 10/10/2024 10/10/2023, 07/22/2023, 08/06/2022, Additional history exists Depression Screening 11/17/2024 11/18/2023, 11/18/19 SDOH Screening 01/05/2025 01/06/2024 Dental Oral Exam 04/05/2025 10/05/2024 Dental Prophylaxis 04/05/2025 10/05/2024 Dental X-Ray: Bitewings 10/06/2025 10/05/2024, 06/22 Tobacco Screening 11/29/2025 11/29/2024 Pap Smear 10/10/2026 10/10/2023 Dental X-Ray: Full Mouth 10/06/2027 10/05/2024 Zoster Vaccines (1 of 2) 2052 RSV Patients and Patients Aged 60 years or older (1 - 1-dose 75+ series) 2077 Pneumococcal Vaccine: Pediatrics (0 to 5 Years) and At-Risk Patients (6 to 49) Years) Aged Out 07/11/2003, 06/11/2003, 05/09/2003 No longer eligible based on patient's age to complete this topic HIB Vaccines Completed 06/02/2004, 04/20, 2002, Additional history exists IPV Vaccines Completed 05/24/2006, 04/20, 2002, Additional history exists HPV Vaccines Completed 01/07/2015, 08/19, 07/04/2014 Hepatitis A Vaccines Completed 06/01/2017, 01/02/20 16 Hepatitis B Vaccines Completed 07/21/2018, 06/11/2003, 05/09/2003, Additional history exists Meningococcal Vaccine Completed 07/21/2018, 014 HIV Screening Completed 07/30/2021, 06/12/2021 Hepatitis C Screening Completed 06/20/2023, 021 RSV under 20 months Aged Out No longe r eligible based on patient's age to complete this topic Rotavirus Vaccines Aged Out No longer eligible based on patient's age to complete this topic Procedures Procedure Name Priority Date/Time Associated Diagnosis Comments POCT , URINE Routine 11/29/2024 3:06 PM EDT Dysuria POCT URINALYSIS DIPSTICK Routine 11/29/2024 3:06 PM EDT Dysuria COMPREHENSIVE PERIODONTAL EVALUATION - NEW OR ESTABLISHED PATIENT Routine 10/05/2024 2:00 PM EST PERIODIC ORAL EVALUATION - ESTABLISHED PATIENT Routine 10/05/2024 2:00 PM EST CASE PRESENTATION, DETAILED AND EXTENSIVE TREATMENT PLANNING Routine 10/05/2024 2:00 PM EST INTRAORAL - PERIAPICAL EACH ADDITIONAL RADIOGRAPHIC IMAGE Routine 10/05/2024 2:00 PM EST INTRAORAL - PERIAPICAL FIRST RADIOGRAPHIC IMAGE Routine 10/05/2024 2:00 PM EST ORAL HYGIENE INSTRUCTIONS Routine 10/05/2024 2:00 PM EST BITEWINGS - 4 RADIOGRAPHIC IMAGES Routine 10/05/2024 2:00 PM EST Full PROPHYLAXIS - ADULT Routine 10/05/2024 2:00 PM EST PANORAMIC RADIOGRAPHIC IMAGE Routine 10/05/2024 2:00 PM EST 28 B COMPOSITE FILLING Routine 5 12:00 AM EST 15 COMPOSITE FILLING Routine 10/05/2024 12:00 AM EST 18 M AMALGAM FILLING Routine 10/05/2024 12:00 AM EST 18 O COMPOSITE FILLING Routine 5 12:00 AM EST 31 O COMPOSITE FILLING Routine 5 12:00 AM EST 30 O COMPOSITE FILLING Routine 5 12:00 AM EST 14 O AMALGAM FILLING Routine 10/05/2024 12:00 AM EST 5 DO AMALGAM FILLING Routine 10/05/2024 12:00 AM EST 3 O AMALGAM FILLING Routine 10/05/2024 1 2:00 AM EST 4 MO COMPOSITE FILLING Routine 5 12:00 AM EST PAP SMEAR Routine 10/10/2023 9:20 AM EST Screening for cervical cancer SURESWAB(R) ADVANCED VAGINITIS PLUS, TMA Routine 10/10/2023 9:20 AM EST Routine screening for STI (sexually transmitted infection) HEPATITIS C AB W/REFL TO HCV RNA, QN, PCR Routine 06/20/2023 11:10 AM EDT Large liver HIV 1/2 ANTIGEN/ANTIBODY, FOURTH GENERATION W/RFL Routine 07/30/2021 2:36 PM EST from Last 3 Months or Most Recently Relevant to Health Maintenance Results * POCT , urine manually resulted (11/29/2024 3:06 PM EDT) Preg Test, Ur Negative Negative, Indeterminate, None Detected, Invalid, Specimen unsatisfactory for evaluation, Weakly Positive Urine 11/29/2024 3:06 PM EDT Manjula Winter DO POINT OF CARE TEST ENTER/VON T ORDERABLES Final Result * POCT urinalysis dipstick manually resulted (11/29/2024 3:06 PM EDT) Pathologist [facility] Color, UA Yellow Clarity, UA Clear Glucose, UA Negative Bilirubin, UA Negative Ketones, UA Negative Spec Grav, UA 1.030 Blood, UA Negative Negative, None Detected pH, UA 6.0 Protein, UA Trace Urobilinogen, UA 0.2 Leukocytes, UA Trace Negative, Rare, Trace Nitrite, UA Negative Negative, None Detected Urine 11/29/2024 3:06 PM EDT Manjula Winter DO POINT OF CARE TEST ENTER/VON T ORDERABLES Final Result * SureSwab?? Advanced Vaginitis Plus, TMA (10/10/2023 9:20 AM EST) Pathologist [facility] CTNG Ref Lab NOT DETECTED NOT DETECTED [facility] NG Ref Lab NOT DETECTED NOT DETECTED [facility] Comment:For additional infor aaron, please refer tohttps://education.Lio Social/faq/RXH905(This link is being provided for information/educational purposes only.)THIS TEST WAS PERFORMED AT:[facility] [place] [id number] GAVIRIA MD SureSwab 9R) ADV Bacterial Vaginosis (BV), TMA NEGATIVE NEGATIVE [facility] Ewa Species NOT DETECTED NOT DETECTED [facility] Ewa glabrata NOT DETECTED NOT DETECTED [facility] Comment:Ewa species C. a lbicans, C. tropicalis,C. parapsilosis, and/or C. dubliniensis can be detected,but not differentiated, in the Ewa spp. result. Trichomonas vaginalis (TV), TMA NOT DETECTED NOT DETECTED [facility] Swab Vaginal structure / Unknown 10/10/2023 9:20 AM EST 10/10/2023 5:39 PM EST Shannon [facility] BODY FLUIDS AND STOOLS ORD ERABLES Final Result [facility] [address] [place] [phone] * Pap Smear (10/10/2023 9:20 AM EST) Swab Cervical swab / Unknown 10/10/2023 9:20 AM EST 10/11/2023 9:30 AM EST Narrative [facility] - 10/20/2023 9:35 AM EST ----- ------- Name: Lisa Doe ? Age/Sex: 23/F ? : 2000 Unit#: [id number] ?? Attend Dr: Shannon Wade ?Re10/10/23 ?Status: DEP REF ? Location: [facility] ? Disch: ? ----- ------- SPEC : [id number] ? RECD: 10/11/23 ? STATUS: ??SOUT ? REQ NUM: [id number] ? CONCHITA: 10/10/23 ? SUBM DR: Shannon Wade ? ENTERED: ??10/11/23 ?SP TYPE: Pap Smr ?OTHR : ? ORDERED: ??Pap Smear ? Interpretation ?? Satisfactory for evaluation. ?? Moderate inflammation. ?? Negative for intraepithelial lesion or malignancy. ?Clinical Information LMP: Unknown date Previous PAP test: Unknown date/findings Other history: Oral contraceptive ? Material Received ?? ThinPrep-Cervical ----- ------- Signed (signature on file) ALBERTINA Miramontes ([facility]) 10/20/23 0935 ? ----- ------- ? END OF REPORT ? Shannon Wade [facility] CYTOLOGY ORDERABLES Final Result Performing Organization Address [facility]/RUST de Phone Number [facility] [address] [place], [place] [phone] * Hepatitis C Antibody with Reflex to HCV, RNA, Quantitative, Real-Time PCR (06/20/2023 11:10 AM EDT) Pathologist [facility] Hepatitis C Antibody Nonreactive Nonreactive [facility] Comment:Antibodies to HCV no t detected; does not exclude early acuteHCV infection. Blood Venous blood specimen / Unknown 06/20/2023 11:10 AM EDT 06/20/2023 2:33 PM EDT Shannon Wade [facility] BLOOD ORDERABLES Final Res ult Performing Organization Address [facility]/ZIP Co de Phone Number [facility] [address] [place] [phone] * HIV 1/2 ANTIGEN/ANTIBODY,FOURTH GENERATION W/RFL (07/30/2021 2:36 PM EST) HIV-1/2 ANTIGEN AND ANTIBODIES, 4TH GENERATION W/ REFLEX NON-REACT AUNDREA NON-REACT AUNDREA [facility] Comment: HIV-1 antigen and HIV-1/HIV-2 antibodies were not detected. There is no laboratory evidence of HIV infection. ?? PLEASE NOTE: This information has been disclosed to you from records whose confidentiality may be protected by state law. ??If your state requires such protection, then the state law prohibits you from making any further disclosure of the information without the specific written consent of the person to whom it pertains, or as otherwise permitted by law. A general authorization for the release of medical or other information is NOT sufficient for this purpose. ? For additional information please refer to http://education.Lio Social/faq/TKM688 (This link is being provided for informational/ educational purposes only.) ? The performance of this assay has not been clinically validated in patients less than 2 years old. ?? 07/30/2021 2:36 PM EST us Mariela Fong NP LAB BLOOD ORDERABLES Final Resu lt [facility] Anywhere [address] from Last 3 Months or Most Recently Relevant to Health Maintenance Insurance [facility] C[place] STAND ADULT [facility] Care Teams Dietitian Therapeutic Relationship Specialty Start Date End Date Shannon Wade FNP [address] [place] [address] PCP - General Family Medicine 07/24/21 Claudia Sarah Dowel InspectorClient Care Specialist 02/24/24
--- OUTSIDE RECORDS SUMMARY | 2024-11-29 18:53 | XMS_ITS | Encounter Summary ---
Author Organization [employer] Address [address] [facility] 7t [place] [address] Care Team Providers Care Echocardiography Radiology Technologist Name Role Phone Shannon Wade VENTURE CAPITALIST Primary Care Provider [phone] Encounter Details Date Type Department Care Team ([facility] Contact Info) Description 11/20/2024 11:15 AM EST Telemedicine [facility] MED & PEDS [address] [place], [place] [id number] Roosevelt Mendes MD [address] [place] [address] Sleep difficulties (Primary Dx) Social History Tobacco Use Types Packs/Day Years Used Date Smoking Tobacco: Never Passive Smoke Exposure: Never Smokeless Tobacco: Never Alcohol Use Standard Drinks/Week Comments Never 0 (1 standard drink = 0.6 oz pur e alcohol) Depression Answer Date Recorded Patient Health Questionnaire-9 Score 25 11/18/2023 Patient Health Questionnaire-9 Score 25 11/18/2023 Last PHQ-9: Questionnaire Data Not on file 0 11/18/2023 Housing Stability Answer Date Recorded What is your housing situation today? I have mau corrales 07/04/[address] you [...] Orientation Straight 07/19/2022 10 :20 AM EDT documented as of this encounter Progress Notes * Roosevelt Cristobal MD - 11/20/2024 11:15 AM EST Subjective Patient ID: Lisa Seo is a 24 y.o. female who presents for No chief complaint on file.. HPI Patient was scheduled for a televisit to discuss sleep apnea Review of Systems Constitutional: Negative for chills, diaphoresis, fatigue and fever. Respiratory: Negative for cough. Cardiovascular: Negative for chest pain and palpitations. Objective Physical Exam Neurological: General: No focal deficit present. Mental Status: She is oriented to person, place, and time. Psychiatric: Mood and Affect: Mood normal. Behavior: Behavior normal. Assessment/Plan Problem List Items Addressed This Visit Sleep difficulties - Primary Patient found with sleep apnea on study performed on 05/2024, she has seen ent due to deviated septum, patient was told she was referred to sleep clinic, patient will need for sleep center appointment for proper adjustment and prescription of cpap machine documented in this encounter Plan of Treatment Upcoming Encounters Date Type Department Care Team (Late st Contact Info) Description 01/14/2025 10:30 AM EDT Office Visit [facility] MED & PEDS [address] [place] [address] Shannon Wade, LEN [address] [place] [address] documented as of this encounter Visit Diagnoses Diagnosis Sleep difficulties- Primary documented in this encounter Additional Health Concerns Assessment Noted Time PHQ-9 Depression Total Score: 25 024 3:37 PM EST documented as of this encounter Care Teams Echocardiography Radiology Technologist Relationship Specialty Start Date End Date Shannon Wade FNP [address] [place] [address] PCP - General Family Medicine 07/24/21 Claudia Sarah Computer ClerkDirector Of Agriculture 02/24/24 documented as of this encounter
--- OUTSIDE RECORDS SUMMARY | 2024-11-29 18:53 | XMS_ITS | Encounter Summary ---
Author Organization [employer] Address [address] [facility] 7t [place] [address] Care Team Providers Care Utility Locate Technician Name Role Phone Shannon Wade Primary Care Provider [phone] Bucky Mccray Unavailable Unavailable Kyra Forte RN Unavailable [phone] Reason for Visit * Reason Onset Date Comments Care Coordination 03/19/2024 [facility] program g raduation Encounter Details Date Type Department Care Team ([facility] Contact Info) Description 03/19/2024 Telephone [facility] MED & PEDS [address] [place], [place] [phone] Shannon Wade FNP [address] [place], [place] [phone] Care Coordination ([facility] program graduation) Social History Tobacco Use Types Packs/Day Years [...] AM EDT documented as of this encounter Miscellaneous Notes * Telephone Encounter - Kyra Forte RN - 03/29/2024 10:28 AM EDT CM Kyra Forte RN and CHW Bucky Mccray placed outbound call to patient. Patient's name, and address confirmed. Patient states is doing well with no recent illnesses or emergency room visits.Pt states the rashes has resolved. Also the Lamotrigine was discontinued by the psychiatrist. Pt reports the thinning of her hair has also improve with no hair loss. CM informed pt of message from team nurse Purcell about the ENT. Pt advised to f/u frequently if there is a sooner appointment or cancellations. CM informed pt that since all goals are met, pt will be graduated from the CM program. No further questions or concerns. CM reinforced direct contact information or CHW for any additional questions or concerns. Education provided on [facility] located in [facility]. Patient provided with after-hours line for [facility], , which offer night time triage service and option to transfer to distribution driver provider if needed. CM discussed with the patient progress made towards established goals. Patient notified is being graduated from the Care Management Program. Patient was educated on how to receive care management services in the future. Patient agrees with the plan and will contact us if any future needs arise. CM Kyra Forte RN, sent notification to PCP Shannon HARRINGTON to inform that patient has completed [facility] program with goals partially/fully met at this time. * Telephone Encounter - LEN Rutherford - 03/20/2024 5:38 PM EDT Hello, I would recommend that she call ENT and ask to be placed on cancellation list. She had ENT appt scheduled for 03/08/24 but she had to reschedule. I am not sure if they are able to accommodate sooner appt. With any urgent concerns, she should go to ED. Thank you. * Telephone Encounter - Binta Larry RN - 03/20/2024 3:43 PM EDT T/C to Claudia on [phone] for below message, No answer. LVM to call back on [phone]. Please review and advise for below request. * Telephone Encounter - Josefa Murray - 03/19/2024 11:30 AM EDT Tc from [facility] with [facility] calling to inform pt was advised by ENT to request an urgent letter for pt to be able to get seen sooner . States was offered an appt for next year and pt believes isto far out .Any question please contact phone # [phone]. documented in this encounter Plan of Treatment Upcoming Encounters Date Type Department Care Team (Late st Contact Info) Description 01/14/2025 10:30 AM EDT Office Visit [facility] MED & PEDS [address] [place] [address] Shannon Wade FNP [address] [place] [address] documented as of this encounter Visit Diagnoses Not on filedocumented in this encounter Additional Health Concerns Assessment Noted Time PHQ-9 Depression Total Score: 25 11/17/ 024 3:37 PM EST documented as of this encounter Care Teams Utility Locate Technician Relationship Specialty Start Date End Date Shannon Wade FNP [address] [place] [address] PCP - General Family Medicine 07/24/21 Bucky Mccray Community Health Worker 01/06/24 03/28/24 Kyra Forte, MARQUEZ [address] [place] [address] Infrastructure Design Engineer 02/21/24 03/28/24 Claudia Sarah Infrastructure Design EngineerPhotogrammetric Surveyor 02/24/24 documented as of this encounter
--- OUTSIDE RECORDS SUMMARY | 2024-11-29 18:53 | XMS_ITS | Clinical Summary ---
Author Organization [facility] ity Address [address] [place] [address] Care Team Providers Care Lead Producer Name Role Phone Unavailable Primary Care Provider Unavailabl e Social History Tobacco Use Types Packs/Day Years Used Date Smoking Tobacco: Never Assessed Comments Unknown Sex and Gender Information Value Date Recorded Sex Assigned at Not on file Legal Sex Female 7:32 PM EST Gender Identity Not on file Sexual Orientation Not on file Plan of Treatment Health Maintenance Due Date Last Done Comments Gonorrhea/Chlamydia Screening 2002 HPV Vaccines (1 - 3-dose series) 2017 Meningococcal B Vacine (1 of 2 - Standard) 2018 DTaP,Tdap,and Td Vaccines (1 - Tdap) 2021 Hepatitis B Vaccines (1 of 3 - 19+ 3-dose series) 2021 Depression Screening 08/21/2022 HIV Screening 08/21/2022 Hepatitis C Screening 08/21/2022 Social Influencers of Health Screening 08/21/2022 Cervical Cancer Screening: P ap Smear 2023 COVID-19 Vaccine ( - 2023-2 5 season) 2024 Influenza Vaccine (#1) 2024 HIB Vaccines Aged Out No longer eligi ble based on patient's age to complete this topic Hepatitis A Vaccines Aged Out No long er eligible based on patient's age to complete this topic IPV Vaccines Aged Out No longer eligi ble based on patient's age to complete this topic MMR Vaccines Aged Out No longer eligi ble based on patient's age to complete this topic Meningococcal ACWY Vaccine Aged Out N o longer eligible based on patient's age to complete this topic Pneumococcal Vaccine: Pediat rics (0 to 5 Years) and At-Risk Patients (6 to 64 Years) Aged Out No longer eligible b ased on patient's age to complete this topic RSV Immunization Patients Un naeem 20 months Aged Out No longer eligible b ased on patient's age to complete this topic Varicella Vaccines Aged Out No longer eligible based on patient's age to complete this topic
--- OUTSIDE RECORDS SUMMARY | 2024-11-29 18:53 | XMS_ITS | Encounter Summary ---
Author Organization [employer] Address [address] [facility] 7t [place] [address] Care Team Providers Care Montessori Lead Teacher Name Role Phone Shannon Wade Primary Care Provider [phone] Bucky Mccray Unavailable Unavailable Kyra Forte RN Unavailable [phone] Reason for Visit * Reason Onset Date Comments Referral 11/22/2023 Encounter Details Date Type Department Care Team ([facility] st Contact Info) Description 11/22/2023 Telephone [facility] MEDICINE [address] [place] [address] Shannon Wade FNP [address] [place] [address] Referral Social History Tobacco Use Types Packs/Day Years [...] before you got money to buy more: Never True 07/04/2023 Within the past 12 months,th e food you bought just didn't last and you didn't have enough money to get more: Never True Transportation Answer Date Recorded In the past 12 months, has l ack of transportation kept you from medical appts, meetings, work or from getting things needed for daily living? No 07/04/2023 Utilities Answer Date Recorded In the past [...] encounter Miscellaneous Notes * Telephone Encounter - Jazzy Rojas RN - 11/24/2023 12:50 PM EST Returned call to Joanne at [facility] regarding message below. Joanne informed that pt has appt with [facility] on 12/05/23 and their purpose is to help bridge pts in the meantime until they can be established with psych due to the long wait times to see psych. Joanne advised to let pt know to request statuson psych for next appt. Joanne agrees with plan and will inform pt. * Telephone Encounter - Bianca Luis - 11/22/2023 2:54 PM EST Tc from Joanne with [facility] [place] requesting a referral for Phychiatric on behalf of patient due to pt informing she is not happy at her current one. Please contact Joanne @ [phone] documented in this encounter Plan of Treatment Upcoming Encounters Date Type Department Care Team (Late st Contact Info) Description 01/14/2025 10:30 AM EDT Office Visit [facility] MED & PEDS [address] [place] [address] Shannon Wade FNP [address] [place] [address] documented as of this encounter Visit Diagnoses Not on filedocumented in this encounter Additional Health Concerns Assessment Noted Time PHQ-9 Depression Total Score: 25 024 3:37 PM EST documented as of this encounter Care Teams Montessori Lead Teacher Relationship Specialty Start Date End Date Shannon Wade FNP [address] [place] [address] PCP - General Family Medicine 07/24/21 Bucky Mccray Community Health Worker 01/06/24 03/28/24 Kyra Forte RN [address] [place] [address] Warehouse Shipping Receiving Clerk 02/21/24 03/28/24 Claudia Sarah Warehouse Shipping Receiving ClerkDrop Board Worker 02/24/24 documented as of this encounter
--- OUTSIDE RECORDS SUMMARY | 2024-11-29 18:53 | XMS_ITS | Encounter Summary ---
Author Organization [employer] Address [address] [facility] 7t [place] [address] Care Team Providers Care Community Planning Technician Name Role Phone Shannon Wade Primary Care Provider [phone] Reason for Visit * Reason Onset Date Comments Appointment 11/01/2024 Encounter Details Date Type Department Care Team ([facility] st Contact Info) Description 11/01/2024 Telephone [facility] MEDICINE [address] [place] [address] Shannon Wade FNP [address] [place] [address] Appointment Social History Tobacco Use Types Packs/Day Years [...] encounter Miscellaneous Notes * Telephone Encounter - Génesis Lincoln RN - 11/01/2024 9:22 AM EST TC x1 AM to pt to schedule follow up appt for ENT and plan. Pt also looking to get flu vaccine. No answer, LVM to return call to office and ask for [facility] nurses. documented in this encounter Plan of Treatment Upcoming Encounters Date Type Department Care Team (Late st Contact Info) Description 01/14/2025 10:30 AM EDT Office Visit [facility] MED & PEDS [address] [place] [address] Shannon Wade FNP [address] [place] [address] documented as of this encounter Visit Diagnoses Not on filedocumented in this encounter Additional Health Concerns Assessment Noted Time PHQ-9 Depression Total Score: 25 024 3:37 PM EST documented as of this encounter Care Teams Community Planning Technician Relationship Specialty Start Date End Date Shannon Wade FNP [address] [place] [address] PCP - General Family Medicine 07/24/21 Claudia Sarah Pathology Laboratory TechnologistOperating Room Scheduler 02/24/24 documented as of this encounter
--- OUTSIDE RECORDS SUMMARY | 2024-11-29 18:53 | XMS_ITS | Encounter Summary ---
Author Organization [employer] Address [address] [facility] 7t [place] [address] Care Team Providers Care Ground Crew Lines Person Name Role Phone Shannon Wade Primary Care Provider [phone] Bucky Mcrcay Unavailable Unavailable Kyra Forte RN Unavailable [phone] Reason for Visit * Reason Onset Date Comments Med Refill 11/22/2023 Encounter Details Date Type Department Care Team ([facility] st Contact Info) Description 11/22/2023 Telephone [facility] MED & PEDS [address] [place], [place] [phone] Shannon Wade FNP [address] [place] [address] Med Refill Social History Tobacco Use Types Packs/Day Years [...] encounter Miscellaneous Notes * Telephone Encounter - Bianca Luis - 11/22/2023 2:52 PM EST TC from pt requesting medication refill. Medications needing refill : valACYclovir (Valtrex) 500 MG tablet To be sent to: [facility]/pharmacy #[id number] [place] [address] documented in this encounter Plan of Treatment Upcoming Encounters Date Type Department Care Team ([facility] st Contact Info) Description 01/14/2025 10:30 AM EDT Office Visit [facility] MED & PEDS [address] [place] [address] Shannon Wade FNP [address] [place] [address] documented as of this encounter Visit Diagnoses Not on filedocumented in this encounter Additional Health Concerns Assessment Noted Time PHQ-9 Depression Total Score: 25 024 3:37 PM EST documented as of this encounter Care Teams Ground Crew Lines Person Relationship Specialty Start Date End Date Shannon Wade FNP [address] [place] [address] PCP - General Family Medicine 07/24/21 Bucky Mccray Community Health Worker 01/06/24 03/28/24 Kyra Forte, MARQUEZ [address] [place] [address] Heavy Line Technician 02/21/24 03/28/24 Claudia Sarah Heavy Line TechnicianLoader Magazine Grinder 02/24/24 documented as of this encounter
--- OUTSIDE RECORDS SUMMARY | 2024-11-29 18:53 | XMS_ITS | Encounter Summary ---
Author Organization [employer] Address [address] [facility] 7t [place] [address] Care Team Providers Care Grain Sampler Name Role Phone Shannon Wade Primary Care Provider [phone] Bucky Mccray Unavailable Unavailable Kyra Forte RN Unavailable [phone] Reason for Visit * Reason Onset Date Comments Nurse Triage 10/26/2023 Encounter Details Date Type Department Care Team (Late st Contact Info) Description 10/26/2023 Telephone [facility] MEDICINE [address] [place] [address] Shannon Wade FNP [address] [place] [address] Nurse Triage Social History Tobacco Use Types Packs/Day Years Used Date Smoking Tobacco: Never Passive Smoke Exposure: Never Smokeless Tobacco: Never Alcohol Use Standard Drinks/Week Comments Never 0 (1 standard drink = 0.6 oz pur e alcohol) Depression Answer Date Recorded Patient Health Questionnaire-9 Score 27 09/09/2023 Patient Health Questionnaire-9 Score 27 09/09/2023 Last PHQ-9: Questionnaire Data Not on file 1 11/10/2022 Housing Stability Answer Date Recorded What is [...] Answer Date Recorded Patient Health Questionnaire-2 Score 6 09/09/2023 Comments No Sex and Gender Information Value Date Recorded Sex Assigned at Female 07/19/2022 10:20 AM EDT Legal Sex Female 10:20 AM EDT Gender Identity Female 07/19/2022 10:20 AM EDT Sexual Orientation Straight 07/19/2022 10 :20 AM EDT documented as of this encounter Miscellaneous Notes * Telephone Encounter - Johanna Avilez RN - 10/26/2023 12:14 PM EST Triage call Pt reports for last 24 hours left eye has been irritated, reddened and eye lid swollen.Pt reports sensitivity to light and sclera is pink. Pt did remove contact yesterday and has not been able to use. Neg for pus or drainage. Pt reports it feels like something is in there . Pt doesn'twork with metal fabrication , works at [employer] and did a deep clean of a closet with chemicals inthere. Pt doesn't remember splash or anything entering eye at that time. Pt right eye is fine and needs to wear contact to see. Pt is advised to come to [facility] today to be seen by provider. Pt agrees with disposition and hours given, open till 8pm. Insurance is verified as active Protocol Used: Eye Pain and Other Symptoms (Adult) Protocol-Based Disposition: See in Office or Video Visit Today Video visit not offered Positive Triage Questions: * Eye pain present > 24 hours * Patient wants to be seen * All higher-acuity triage questions were negative Care Advice Discussed: * Reassurance and Education - Mild Eye Pain * Remove Contacts * Reasons To Call Back - Pain increases - Pain lasts over 24 hours - Pus or yellow/green discharge occurs - Blurred vision occurs - You become worse * Telephone Encounter - Yousif Campbell - 10/26/2023 11:56 AM EST Symptoms: Eye Swelling, Eye Redness Without Pus or Discharge Outcome: Schedule an urgent appointment (within 1 hour) or talk to a nurse or provider soon Reason: Nonstop tears or blinking The caller accepted this outcome documented in this encounter Plan of Treatment Upcoming Encounters Date Type Department Care Team ([facility] st Contact Info) Description 01/14/2025 10:30 AM EDT Office Visit [facility] MED & PEDS [address] [place] [address] Shannon Wade FNP [address] [place] [address] documented as of this encounter Visit Diagnoses Not on filedocumented in this encounter Additional Health Concerns Assessment Noted Time PHQ-9 Depression Total Score: 27 023 10:47 AM EST documented as of this encounter Care Teams Grain Sampler Relationship Specialty Start Date End Date Shannon Wade FNP [address] [place] [address] PCP - General Family Medicine 07/24/21 Bucky Mccray Community Health Worker 01/06/24 03/28/24 Kyra Forte, MARQUEZ [address] [place] [address] Hand Meat Salter 02/21/24 03/28/24 Claudia Sarah Hand Meat SalterBranch Lead 02/24/24 documented as of this encounter
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
--- OUTSIDE RECORDS SUMMARY | 2024-11-29 18:53 | XMS_ITS | Encounter Summary ---
Author Organization [employer] Address [address] [place] [address] Care Team Providers Care Reading Intervention Teacher Name Role Phone Shannon Wade HOT AIR FURNACE INSTALLER REPAIRER Primary Care Provider [phone] Encounter Details Date Type Department Care Team (Late st Contact Info) Description 11/29/2024 4:00 PM EDT Office Visit [facility] [address] [place], [place] [id number] aMnjula Winter DO [address] [place], [place] [phone] Labial lesion (Primary Dx); Dysuria; Herpes labialis Social History Tobacco Use Types Packs/Day Years [...] AM EDT documented as of this encounter Last Filed Vital Signs Vital Sign Reading Time Taken Comments Blood Pressure 121/76 11/29/2024 2:02 PM EDT Pulse 69 11/29/2024 2:02 PM EDT Temperature 36.6 ??C (97.9 ??F) 11/29/2024 2:02 PM ED T Respiratory Rate 16 11/29/2024 2:02 PM EDT Oxygen Saturation 99% 11/29/2024 2:02 PM EDT Inhaled Oxygen Concentration - - Weight 55.3 kg (122 lb) 11/29/2024 2:02 PM EDT Height - - Body Mass Index 20.3 06/26/2024 10:31 AM EDT documented in this encounter Progress Notes * Manjula Winter, - 11/29/2024 4:00 PM EDT SUBJECTIVE: Lisa Seo is a 24 y.o. year old female who presents for sick visit . She comes to [place] concerned about recurrent HSV infection. She says that her sx started at the beginning of the week with burning with urination. She says that she developed an ulcer which crusted over and didn't feel typical for her herpes outbreaks so she wanted to get it checked. She says that she used to get a lot of outbreaks so she was started on valtrex daily but she stopped taking it because she was getting less. She has been taking valtrex 1000mg for the last 3 days. She denies any urinary frequency or urgency. No hematuria. No malodorous urine. She doesn't feel that she has a UTI. She has been having some vaginal discharge and would like to get checked for everything. She describes white discharge which was a lot but has decreased. She denies any vaginal itching or odor. She has not been sexually active since September, with her former partner. She says that they because she couldn't trust him. She is not using any control. She stopped using depo last summer. 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 She checked home test which was negative. History provided by: Patient hourly sign language interpreter used: No Review of Systems Constitutional: Negative for chills and fever. Respiratory: Negative for shortness of breath. Cardiovascular: Negative for chest pain and leg swelling. Gastrointestinal: Negative for abdominal pain, diarrhea and vomiting. Genitourinary: Positive for genital sores and vaginal discharge. Negative for decreased urine volume, dysuria, flank pain, frequency, hematuria, pelvic pain and urgency. Neurological: Negative for headaches. Patient Active Problem List Diagnosis Anxiety Depressive disorder Large liver Myopia Bipolar 1 disorder (CMS/HCC) Genital herpes Autoimmune urticaria Uterine bleeding, dysfunctional Microscopic hematuria Nasal septal deviation On Depo-Provera for contraception Sleep difficulties Allergies Allergen Reactions Lamotrigine Rash Red Dye OBJECTIVE Vitals: 11/29/24 1402 BP: 121/76 BP Location: Left arm Patient Position: Sitting BP Cuff Size: Adult Pulse: 69 Resp: 16 Temp: 97.9 ??F (36.6 ??C) TempSrc: Temporal SpO2: 99% Weight: 122 lb (55.3 kg) Physical Exam Constitutional: General: She is not in acute distress. Appearance: Normal appearance. Cardiovascular: Rate and Rhythm: Normal rate and regular rhythm. Heart sounds: Normal heart sounds. No murmur heard. Pulmonary: Effort: Pulmonary effort is normal. Breath sounds: Normal breath sounds. No wheezing or rhonchi. Genitourinary: General: Normal vulva. Labia: Right: No rash or lesion. Left: No rash or lesion. Neurological: General: No focal deficit present. Mental Status: She is alert and oriented to person, place, and time. Cranial Nerves: No cranial nerve deficit. Motor: No weakness. Gait: Gait normal. Psychiatric: Mood and Affect: Mood normal. Office Visit on 11/29/2024 Component Date Value Ref Range Status Color, UA 11/29/2024 Yellow Final Clarity, UA 11/29/2024 Clear Final Glucose, UA 11/29/2024 Negative Final Bilirubin, UA 11/29/2024 Negative Final Ketones, UA 11/29/2024 Negative Final Spec Grav, UA 11/29/2024 1.030 Final Blood, UA 11/29/2024 Negative Negative, None Detected Final pH, UA 11/29/2024 6.0 Final Protein, UA 11/29/2024 Trace Final Urobilinogen, UA 11/29/2024 0.2 Final Leukocytes, UA 11/29/2024 Trace Negative, Rare, Trace Final Nitrite, UA 11/29/2024 Negative Negative, None Detected Final Preg Test, Ur 11/29/2024 Negative Negative, Indeterminate, None Detected, Invalid, Specimen unsatisfactory for evaluation, Weakly Positive Final ASSESSMENT/PLAN Diagnoses and all orders for this visit: Labial lesion No ulcer/lesion on exam, likely resolving HSV lesion -provided reassurance -send HSV culture -complete valtrex course -restart valtrex daily as per PCP -referred for STI/HIV screening - Hepatitis B surface antigen, EIA; Future - HIV-1/2 Antigen and Antibodies, Fourth Generation, with Reflexes; Future - Hepatitis C Antibody with Reflex to HCV, RNA, Quantitative, Real-Time PCR; Future - RPR (Monitor) with Reflex to Titer; Future - Hepatitis B Surface Antibody, Qualitative; Future - Hepatitis B Core Antibody, Total; Future - Herpes Simplex Virus 1 and 2 (IgG), Type-Specific Antibodies; Future - Herpes Simplex Virus 1/2 Antibody (IgM), IFA with Reflex to Titer, Serum; Future - Bacterial Vaginosis Panel - Chlamydia/N. Gonorrhoeae RNA, TMA, Urogenitial - Herpes Simplex Virus Culture with Reflex Typing; Future Dysuria With vaginal discharge, sx improving, likely 2/2 HSV lesion -send Ucx r/o UTI -send BV panel and GC/CT -advised will treat pending results Herpes labialis -provided reassurance -trial acyclovir ointment prn, advised begin at onset of sx -advised rtc if no improvement, she agrees with plans F/U with PCP as scheduled or sooner prn Current Outpatient Medications: acetaminophen (Tylenol) 500 MG tablet, Take 2 tablets (1,000 mg) by mouth every 6 (six) hours if needed for moderate pain or fever for up to 25 doses., Disp: 30 tablet, Rfl: 0 acyclovir (Zovirax) 5 % ointment, Apply topically 6 (six) times a day. For one week as needed for cold sore. Space applications every 3 hours., Disp: 15 g, Rfl: 2 buPROPion XL (Wellbutrin XL) 150 MG 24 hr tablet, Take 300 mg by mouth in the morning., Disp: , Rfl: cyclobenzaprine (Flexeril) 10 MG tablet, Take 1 tablet (10 mg) by mouth 3 times daily for 10 days.,Disp: 30 tablet, Rfl: 0 cyproheptadine (Periactin) 4 MG tablet, Take 1 tablet by mouth in the morning., Disp: , Rfl: EPINEPHrine (Epipen) 0.3 MG/0.3ML injection syringe, Inject 0.3 mg into the shoulder, thigh, or buttocks., Disp: , Rfl: hydrOXYzine pamoate (Vistaril) 25 MG capsule, TAKE 1 CAPSULE BY MOUTH ONCE DAILY NEEDED FOR ANXIETY / PANIC ATTACK, Disp: , Rfl: hydrOXYzine pamoate (Vistaril) 50 MG capsule, Take 1 capsule (50 mg) by mouth every 6 (six) hours if needed for itching for up to 10 days., Disp: 30 capsule, Rfl: 0 Minoxidil (Rogaine Mens) 5 % foam, To apply to the scalp once a day, Disp: 60 g, Rfl: 2 multivitamin () 27-0.8 MG tablet, Take 1 tablet by mouth Once per day., Disp: 90 tablet, Rfl: 3 OXcarbazepine (Trileptal) 150 MG tablet, Take 150 mg by mouth Once per day., Disp: , Rfl: prazosin (Minipress) 1 MG capsule, Take 1 capsule (1 mg) by mouth at bedtime., Disp: 30 capsule, Rfl: 1 Spacer/Aero-Holding Chambers (Compact Space Chamber) device, USE WITH ALBUTEROL, Disp: , Rfl: valACYclovir (Valtrex) 500 MG tablet, Take 1 tablet (500 mg) by mouth Once daily., Disp: 90 tablet,Rfl: 2 valACYclovir (Valtrex) 500 MG tablet, Take 1 tablet (500 mg) by mouth 2 times daily for 3 days. As needed for outbreak, Disp: 6 tablet, Rfl: 2 documented in this encounter Plan of Treatment Upcoming Encounters Date Type Department Care Team (Late st Contact Info) Description 01/14/2025 10:30 AM EDT Office Visit [facility] [address] [place], [place] [phone] Shannon Wade FNP [address] [place] [address] Scheduled Orders Name Type Priority Associated Diagnoses Orde r Schedule Hepatitis B surface antigen, EIA Lab Routine Labial lesion Dysuria Expected: 11/29/2024 (Approximate), Expires: 11/29/2025 HIV-1/2 Antigen and Antibodies, Fourth Generation, with Reflexes Lab Routine Labial lesion Dysuria Expected: 11/29/2024 (Approximate), Expires: 11/29/2025 Hepatitis C Antibody with Reflex to HCV, RNA, Quantitative, Real-Time PCR Lab Routine Labial lesion Dysuria Expected: 11/29/2024, Expires: 11/29/2025 RPR (Monitor) with Reflex to??Titer Lab Routine Labial lesion Dysuria Expected: 11/29/2024, Expires: 11/29/2025 Hepatitis B Surface Antibody, Qualitative Lab Routine Labial lesion Dysuria Expected: 11/29/2024 (Approximate), Expires: 11/29/2025 Hepatitis B Core Antibody, Total Lab Routine Labial lesion Dysuria Expected: 11/29/2024 (Approximate), Expires: 11/29/2025 Herpes Simplex Virus 1 and 2 (IgG), Type-Specific Antibodies Lab Routine Labial lesion Dysuria Expected: 11/29/2024 (Approximate), Expires: 11/29/2025 Herpes Simplex Virus 1/2 Antibody (IgM), IFA with Reflex to Titer, Serum Lab Routine Labial lesion Dysuria Expected: 11/29/2024 (Approximate), Expires: 11/29/2025 Bacterial Vaginosis Panel Microbiology Routine Labial lesion Ordered: 11/29/2024 Chlamydia/N. Gonorrhoeae RNA, TMA, Urogenitial Microbiology Routine Labial lesion Ordered: 11/29/2024 Herpes Simplex Virus Culture with Reflex Typing Microbiology Routine Labial lesion Expected: 11/29/2024, Expires: 11/29/2025 Culture, Urine, Routine Microbiology Routine Dysuria Ordered: 11/29/2024 documented as of this encounter Procedures Procedure Name Priority Date/Time Associated Diagnosis Comments POCT , URINE Routine 11/29/2024 3:06 PM EDT Dysuria POCT URINALYSIS DIPSTICK Routine 11/29/2024 3:06 PM EDT Dysuria documented in this encounter Results * POCT , urine manually resulted (11/29/2024 3:06 PM EDT) Preg Test, Ur Negative Negative, Indeterminate, None Detected, Invalid, Specimen unsatisfactory for evaluation, Weakly Positive Urine 11/29/2024 3:06 PM EDT Manjula JurmelissaZENTICKET POINT OF CARE TEST ENTER/VON T ORDERABLES Final Result * POCT urinalysis dipstick manually resulted (11/29/2024 3:06 PM EDT) Color, UA Yellow Clarity, UA Clear Glucose, UA Negative Bilirubin, UA Negative Ketones, UA Negative Spec Grav, UA 1.030 Blood, UA Negative Negative, None Detected pH, UA 6.0 Protein, UA Trace Urobilinogen, UA 0.2 Leukocytes, UA Trace Negative, Rare, Trace Nitrite, UA Negative Negative, None Detected Urine 11/29/2024 3:06 PM EDT PST Tankers POINT OF CARE TEST ENTER/VON T ORDERABLES Final Result documented in this encounter Visit Diagnoses Diagnosis Labial lesion- Primary Other specified noninflammatory disorder of vulva and perineum Dysuria Herpes labialis Herpes simplex without mention of complication documented in this encounter Additional Health Concerns Assessment Noted Time PHQ-9 Depression Total Score: 25 024 3:37 PM EST documented as of this encounter Care Teams Reading Intervention Teacher Relationship Specialty Start Date End Date Shannon Wade FNP [address] [place] [address] PCP - General Family Medicine 07/24/21 Claudia Sarah Central Lab TechnicianMeat Clerk 02/24/24 documented as of this encounter
--- OUTSIDE RECORDS SUMMARY | 2024-11-29 18:53 | XMS_ITS | Encounter Summary ---
Author Organization [email or web address] Address [address] 7t [place] [address] Care Team Providers Care Violin Maker Hand Name Role Phone Shannon Wade Primary Care Provider [phone] Reason for Visit * Reason Onset Date Comments Nurse Triage 11/19/2024 Encounter Details Date Type Department Care Team ([facility] st Contact Info) Description 11/19/2024 Telephone [facility] [address] [place] [address] Shannon Wade FNP [address] [place] [address] Nurse Triage Social History Tobacco Use Types [...] encounter Miscellaneous Notes * Telephone Encounter - Monica Lerma RN - 11/20/2024 9:11 AM EST Via PCP: Shannon HARRINGTON Please see televisit from 06/18/24: 05/28/24: Sleep Study completed at [facility]. Impresion: very mild sleep apnea. Can try AutoCPAP 6-15.Consider medication side effects and disorders of hypersomnia such as narcolepsy and idiopathic hypersomnia. Referral to Sleep Medicine for further eval / management 06/21/24 Do we know if she followed up with Sleep Medicine Clinic? Thanks * Telephone Encounter - LEN Rutherford - 11/19/2024 7:32 PM EST Please see televisit from 06/18/24: 05/28/24: Sleep Study completed at [facility]. Impresion: very mild sleep apnea. Can try AutoCPAP 6-15.Consider medication side effects and disorders of hypersomnia such as narcolepsy and idiopathic hypersomnia. Referral to Sleep Medicine for further eval / management 06/21/24 Do we know if she followed up with Sleep Medicine Clinic? Thanks * Telephone Encounter - Monica Lerma RN - 11/19/2024 3:23 PM EST Called pt. She states she was DX. With sleep apnea. Pt. States she has seen ENT and there are conditions that affect her sleep due to deviated septum as well. Pt. Will stop breathing at night for a second and then wake up but, states that she is so tired all the time and now is getting paranoia about not being able to sleep and it's making her worse. Pt. States she did have Sleep Apnea test last y ear and is requesting a CPAP machine for sleep. I did give pt. Televisit for tomorrow as PCP all booked up to discuss need for CPAP. I do see an order in pt. Chart for Polysomnography ordered 03/27/24 and there are scanned results of a Sleep study scanned into chart 06/01/2024. Please review sleep study results prior to pt. Appt. 11/20/24 at 1115am. Protocol Used: Insomnia (Adult) Protocol-Based Disposition: See in Office or Video Visit within 2 Weeks Video visit offer not recorded Positive Triage Questions: * Insomnia lasts > 2 weeks and no improvement after using Care Advice * Insomnia is a chronic symptom (recurrent or ongoing AND present > 4 weeks) * Excessive daytime sleepiness is a chronic symptom (recurrent or ongoing AND present > 4 weeks) * Loud snoring is a chronic symptom (recurrent or ongoing AND present > 4 weeks) * All higher-acuity triage questions were negative Care Advice Discussed: * Reassurance and Education - Difficulty Sleeping * Tips for Good Sleep - When You Can't Fall Asleep * Tips for Good Sleep - What To Avoid * Telephone Encounter - Awilda Miramontes - 11/19/2024 3:03 PM EST Symptom: Sleeping Difficulty Outcome: Schedule an appointment to be seen within 24 hours Reason: This is the only possible outcome for this symptom The caller accepted this outcome. [phone] documented in this encounter Plan of Treatment Upcoming Encounters Date Type Department Care Team (Late st Contact Info) Description 01/14/2025 10:30 AM EDT Office Visit [facility] [address] [place] [address] Shannon Wade FNP [address] [place] [address] documented as of this encounter Visit Diagnoses Not on filedocumented in this encounter Additional Health Concerns Assessment Noted Time PHQ-9 Depression Total Score: 25 024 3:37 PM EST documented as of this encounter Care Teams Violin Maker Hand Relationship Specialty Start Date End Date Shannon Wade FNP [address] [place] [address] PCP - General Family Medicine 07/24/21 Claudia Sarah Repair Table OperatorTrauma Surgeon 02/24/24 documented as of this encounter
--- OUTSIDE RECORDS SUMMARY | 2024-11-29 18:53 | XMS_ITS | Encounter Summary ---
Author Organization [employer] Address [address] [place] [address] Care Team Providers Care Oracle Soa Consultant Name Role Phone Shannon Wade Primary Care Provider [phone] Bucky Mccray Unavailable Unavailable Kyra Forte RN Unavailable [phone] Encounter Details Date Type Department Care Team ([facility] Contact Info) Description 08/02/2023 Telephone [facility] [address] [place] [address] Shannon Wade FNP [address] [place] [address] Social History Tobacco Use Types Packs/Day Years Used Date Smoking Tobacco: Never Passive Smoke Exposure: Never Smokeless Tobacco: Never Alcohol Use Standard Drinks/Week Comments Never 0 (1 standard drink = 0.6 oz pur e alcohol) Depression Answer Date Recorded Patient Health Questionnaire-9 Score 23 07/22/2023 Patient Health Questionnaire-9 Score 23 07/22/2023 Last PHQ-9: Questionnaire Data Not on file 1 09/21/2022 Housing Stability Answer Date Recorded What is [...] Date Recorded Patient Health Questionnaire-2 Score 6 07/22/2023 Comments Unknown Sex and Gender Information Value Date Recorded Sex Assigned at Female 07/19/2022 10:20 AM EDT Legal Sex Female 10:20 AM EDT Gender Identity Female 07/19/2022 10:20 AM EDT Sexual Orientation Straight 07/19/2022 10 :20 AM EDT documented as of this encounter Plan of Treatment Upcoming Encounters Date Type Department Care Team ([facility] st Contact Info) Description 01/14/2025 10:30 AM EDT Office Visit [facility] [address] [place] [address] Shannon Wade FNP [address] [place] [address] documented as of this encounter Visit Diagnoses Not on filedocumented in this encounter Additional Health Concerns Assessment Noted Time PHQ-9 Depression Total Score: 23 023 9:59 AM EDT documented as of this encounter Care Teams Oracle Soa Consultant Relationship Specialty Start Date End Date Shannon Wade FNP [address] [place] [address] PCP - General Family Medicine 07/24/21 Bucky Mccray Community Health Worker 01/06/24 03/28/24 Kyra Forte RN [address] [place] [address] Teleradiologist 02/21/24 03/28/24 Claudia Sarah TeleradiologistCrowning Hammer Operator 02/24/24 documented as of this encounter
--- OUTSIDE RECORDS SUMMARY | 2024-11-29 18:53 | XMS_ITS | Encounter Summary ---
Author Organization [employer] Address [address] [place] [address] Care Team Providers Care High Scaler Name Role Phone Shannon Wade INSTRUCTIONAL SUPERVISOR Primary Care Provider [phone] Encounter Details Date Type Department Care Team (Latest Contact Info) Description 11/20/2024 Travel Social History Tobacco Use Types Packs/Day Years [...] Description 01/14/2025 10:30 AM EDT Office Visit [facility] [address] [place] [address] Shannon Wade FNP [address] [place] [address] documented as of this encounter Visit Diagnoses Not on filedocumented in this encounter Additional Health Concerns Assessment Noted Time PHQ-9 Depression Total Score: 25 024 3:37 PM EST documented as of this encounter Care Teams High Scaler Relationship Specialty Start Date End Date Shannon Wade FNP [address] [place] [address] PCP - General Family Medicine 07/24/21 Claudia Sarah Senior Revenue AccountantStaff Radiologist 02/24/24 documented as of this encounter
--- OUTSIDE RECORDS SUMMARY | 2024-11-29 18:53 | XMS_ITS | Encounter Summary ---
Author Organization [email or web address] Address [address]t [place] [address] Care Team Providers Care Refinery Operator Gas Plant Name Role Phone Shannon Wade Primary Care Provider [phone] Reason for Visit * Reason Onset Date Comments Appointment Request 07/03/2024 Encounter Details Date Type Department Care Team ([facility] st Contact Info) Description 07/03/2024 Telephone [facility] [address] [place] [address] Shannon Wade FNP [address] [place] [address] Appointment Request Social History Tobacco Use Types Packs/Day Years [...] encounter Miscellaneous Notes * Telephone Encounter - Yousif Campbell - 07/03/2024 1:10 PM EDT Tc from patient calling to request a appt to discuss options for control documented in this encounter Plan of Treatment Upcoming Encounters Date Type Department Care Team (Late st Contact Info) Description 01/14/2025 10:30 AM EDT Office Visit [facility] [address] [place] [address] Shannon Wade FNP [address] [place] [address] documented as of this encounter Visit Diagnoses Not on filedocumented in this encounter Additional Health Concerns Assessment Noted Time PHQ-9 Depression Total Score: 25 024 3:37 PM EST documented as of this encounter Care Teams Refinery Operator Gas Plant Relationship Specialty Start Date End Date Shannon Wade FNP [address] [place] [address] PCP - General Family Medicine 07/24/21 Claudia Sarah Computer Education ProfessorSlasher Sawyer 02/24/24 documented as of this encounter
--- OUTSIDE RECORDS SUMMARY | 2024-11-29 18:54 | XMS_ITS | Continuity of Care Document ---
Author Organization [place] - [facility], [facility] Address [address] [place] [address] Assessment Encounter Date Assessment Date Assessment LastModified by Organization Details LastModified Time 11/05/2024 11/05/2024 1. Nasal obstruction 2. Nasal [...] Establish ed 20 2024 11:10A M SABAS DENT MD Not available Not available Not available Lab None recorded. Referral None recorded. Procedures None recorded. Surgeries None recorded. Imaging None recorded. Medication Orders azelastin e 137 mcg (0.1 %) nasal spray 2024 025 [facility]/Pharmacy #[id number], [address] [place], [address], 11/05/2024 12:11:34 Patient TargetsNo targets recorded. Patient InstructionsNo instructions recorded. Reason for Referral None Reported. Problems Name Problem SNOMED Code Status Onset Date Resolution Date Notes Provider Name and Address Organization Details Recorded Time Deviated nasal septum 106345176 Active 2021 Deviated nasal septum; Note: Date Diagnosed: 06/15/2022 9:16 AM (J34.2) Not Available [facility] 4 02:13:35 Hypertrop hy of nasal turbinate s 49925979 Active 2021 Hypertroph y of nasal turbinates ; Note: Date Diagnosed: 06/17/2022 5:16 PM (J34.3) Not Available [facility] 4 02:13:46 Follow-up visit Active 2021 Medical surveillan ce following completed treatment; Note: Date Diagnosed: 08/31/2022 9:17 AM (Z09) Not Available [facility] 4 02:14:41 Cervical lymphaden opathy 357725976 Active 2021 Enlarged lymph nodes, unspecifie d; Note: Date Diagnosed: 01/05/2022 12:26 PM (R59.9) Not Available [facility] 4 02:13:46 Nasal congestio n 98497118 Active 2024 LORI SALINAS MD [address] [place] [address],[place] [address], [place], [address] , [place] - [facility] 5 09:23:02 Obstructi ve sleep apnea syndrome 04859873 Active 2024 LORI SALINAS MD [address] [place] [address],[place] [address], [place], [address] , [place] - [facility] 5 09:23:08 Chronic sinusitis 67796294 Active 2024 LORI SALINAS MD [address], [place], [address] , [place] - [facility] 5 09:23:26 Nasal obstructi on 989640108 Active 2024 SABAS DENT MD [address] [facility] [place], [place], [address] , [place] - [facility] 5 12:10:43 Generaliz ed anxiety disorder 99917606 Active 2024 SABAS DENT MD [address] [facility],[address], [place], [address] , [place] - [facility] 5 12:42:55 Problem Notes None recorded. Medical Equipment None Reported. Allergies Allergen ID Allergen Name Allergen Category Reaction Reaction Severity Criticality Documentation Date Start Date Code Code System Note Provider Name and Address Organization Details Recorded Time 18896 Red Dye food,medi cation hives Not available Not available 01/31/2024 85799 UNK React ion: Hives ; Not Available [facility] 4 00:49:30 Medications Name Sig [...] mg tablet 09/28 completed Medicati on ID: [id number] B rand Name: acetamin ophen Se nd Method: E-Prescr ibed Sub s Allowed: subs OK Speci al Instruct ion: TAKE 2 TABLETS BY MOUTH EVERY 4 HOURS Me dication GenericN carmen: acetamin ophen Not Available Not Available Not Available ibuprofen 800 mg tablet 11/05 completed Medicati on ID: [id number] B rand Name: ibuprofe n Send Method: E-Prescr ibed Sub s Allowed: subs OK Speci al Instruct ion: TAKE 1 TABLET BY MOUTH THREE TIMES A DAY WITH FOOD Med icationG enericNa me: ibuprofe n Not Available Not Available Not Available prazosin 1 mg capsule 09/28 completed Medicati on ID: [id number] B rand Name: prazosin Send Method: E-Prescr [...] a day 09/28 completed Medicati on ID: [id number] D uration Value: 7 Brand Name: amoxicil [...] e 137 mcg (0.1 %) nasal spray [place] 1 spray every day by intranas al [...] mg tablet 06/17 completed Medicati on ID: [id number] B rand Name: naproxen Send Method: E-Prescr ibed Sub s Allowed: subs OK Speci al Instruct ion: TAKE 1 TABLET BY MOUTH TWICE A DAY NEEDED FOR PAIN Med icationG enericNa me: naproxen Not Available Not Available Not Available oxycodone 5 mg tablet Take 1 tablet by mouth every six to eight hours as needed for pain 09/28 completed Medicati on ID: [id number] D uration Value: 5 Brand Name: oxycodon [...] extended release 09/28 completed Medicati on ID: [id number] B rand Name: bupropio n HCl Send [...] mg tablet 06/17 completed Medicati on ID: [id number] B rand Name: pam rice Send Method: E-Prescr ibed Sub s Allowed: subs OK Speci al Instruct ion: TAKE 1 TO 2 TABLETS BY MOUTH AT BEDTIME NEEDED Azael Bowmanjacob Name: pam rice Not Available Not Available Not Available Nunu [...] Updated DateTime 11/05/2024 165.1 cm 20.1 kg/m2 43185.68 g Norma Gaytan [place] - [facility] 11/05/2024 11:36:27 Social History None recorded. Functional Status None recorded. Mental Status None recorded. Family History Nothing Reported. Medical History No medical history recorded. Gynecological HistoryNo gynecological history recorded. Obstetrics History GPAL:G 0 P 0 0 0 0 Past Encounters Encounter ID Performer Location Encounter Start Date Encounter Closed Date Diagnosis/Indication Diagnosis SNOMED-CT Code Diagnosis ICD10 Code Diagnosis Note [id number] SABAS DENT MD [facility] of [address] [address] 11/05/2024 11:30:22 11/05/2024 12:13:51 Nasal obstruction 421138462 J34.89 Deviated nasal septum 12 8316299 J34.2 Generalize d anxiety disorder 62100364 F41.1 Health Concerns Section Related Observation LastModified by Organization Detai ls LastModified Time None Recorded Concern Status LastModified by Organization Details LastModified Time None Recorded Payers Encounter Date Sequence Insurance Name Policy Number Policy Pineda Covered Member ID Pineda Member ID Guarantor Name 11/05/2024 1 MEDICAID-MD: [facility] Lisa Seo [id number] Lisa Seo Notes Date Note Type Note Provider Name and Address Organization Details Recorded Time 11/05/2024 text/html She reports difficulty breathing out [...] This shows left anterior septal deviation. SABAS DENT MD [address] [place] [address], [address], [place] - [facility] 11/05/2024 12:44:36 OBGyn Episode No OBEpisode recorded.
--- OUTSIDE RECORDS SUMMARY | 2024-11-29 18:54 | XMS_ITS | Encounter Summary ---
Author Organization [employer] Address [address] [place] [address] Care Team Providers Care Assistant Laboratory Director Name Role Phone Shannon Wade Primary Care Provider Bucky Mccray Unavailable Unavailable Kyra Forte RN Unavailable [phone] Reason for Visit * Reason Onset Date Comments ER Follow-up 12/14/2023 Encounter Details Date Type Department Care Team (Late st Contact Info) Description 12/14/2023 Telephone [facility] MED[facility] [address] [place] [address] Shannon Wade FNP [address] [place] [address] ER Follow-up Social History Tobacco Use Types Packs/Day Years [...] Telephone Encounter - Johanna Avilez RN - 12/14/2023 2:52 PM EDT Triage call Pt is at work during this call. Pt reports was seen in [facility] 12/11/23, report is on the chart. Pt reports went to ED for vaginal bleeding, dx of acute vaginal bleeding receivedand Pt was sent home with advice to follow up with provider. Pt continues to use 4 plus pads for vaginal bleeding. Denies dizziness, weakness, continues to go about daily activities. Pt did start with depo injection for control September 14, 2023. Pt is given apt with CORKY Lucia 12/20/23 @ 245pm in the [place] office [address]. Pt is made aware this apt in [place] building. Pt agrees with disposition, will return to ED if needed prior to appt. Pt is advised to purchase some disposable underwear at this time to use with pads to prevent accidents while at work. Encouraged fluid intake andif symptoms of dizziness, lethargy , lightheadedness occur to seek evaluation at ED. Contacted Silvia to be sure that this Pt could be seen since it is an ED follow up apt and was given OK to schedule. Protocol Used: Vaginal Bleeding - Abnormal (Adult) Protocol-Based Disposition: See in Office or Video Visit within 2 Weeks Positive Triage Questions: * Periods with > 6 soaked pads or tampons per day * Periods last > 7 days * All higher-acuity triage questions were negative Care Advice Discussed: * Irregular Bleeding and You Are Using Implanon or Depo-Provera * Reasons To Call Back - Irregular bleeding occurs more than 2 cycles (2 months) - Bleeding becomes worse - You become worse * Telephone Encounter - Rehan Shreyas - 12/14/2023 2:05 PM EDT Patient calling to report ED visit on : Date: 12/11/23 Hospital: [facility] Seen for: Menstrual Bleeding Pt stated symptoms seem to be worsening Symptom: Vaginal Bleeding - Not Outcome: Transfer to a nurse or provider NOW! Reason: Can't stand (unless normally can't stand) documented in this encounter Plan of Treatment Upcoming Encounters Date Type Department Care Team (Late st Contact Info) Description 01/14/2025 10:30 AM EDT Office Visit [facility]S [address] [place] [address] Shannon Wade FNP [address] [place] [address] documented as of this encounter Visit Diagnoses Not on filedocumented in this encounter Additional Health Concerns Assessment Noted Time PHQ-9 Depression Total Score: 25 024 3:37 PM EST documented as of this encounter Care Teams Assistant Laboratory Director Relationship Specialty Start Date End Date Shannon Wade FNP [address] [place] [address] PCP - General Family Medicine 07/24/21 Bucky Mccray Community Health Worker 01/06/24 03/28/24 Kyra Forte, MARQUEZ [address] [place] [address] School Custodian 02/21/24 03/28/24 Claudia Sarah School CustodianGlass Installer 02/24/24 documented as of this encounter
--- OUTSIDE RECORDS SUMMARY | 2024-11-29 18:54 | XMS_ITS | Encounter Summary ---
Author Organization [employer] Address [address] [place] [address] Care Team Providers Care Agronomy Supervisor Name Role Phone Shannon Wade Primary Care Provider [phone] Bucky Mccray Unavailable Unavailable Kyra Forte RN Unavailable [phone] Reason for Visit * Reason Onset Date Comments Letter for School/Work 07/01/2023 Encounter Details Date Type Department Care Team ([facility] st Contact Info) Description 07/01/2023 Telephone [facility] MED[facility]INE [address] [place] [address] Shannon Wade FNP [address] [place], [place] [phone] Letter for School/Work Social History Tobacco Use Types Packs/Day Years Used Date Smoking Tobacco: Never Passive Smoke Exposure: Never Smokeless Tobacco: Never Alcohol Use Standard Drinks/Week Comments Never 0 (1 standard drink = 0.6 oz pur e alcohol) Housing Stability Answer Date Recorded What is [...] Date Recorded Patient Health Questionnaire-2 Score 5 05/12/2023 Comments Unknown Sex and Gender Information Value Date Recorded Sex Assigned at Female 07/19/2022 10:20 AM EDT Legal Sex Female 10:20 AM EDT Gender Identity Female 07/19/2022 10:20 AM EDT Sexual Orientation Straight 07/19/2022 10 :20 AM EDT documented as of this encounter Miscellaneous Notes * Telephone Encounter - LEN Rutherford - 07/08/2023 12:35 PM EDT Thanks, Hopefully she returns call. I took a look at encounter 06/20/23, but those are from [facility] ED visit on 06/09/23 which I had already addressed with pt during visit 06/20/23. I believe Monica is talking about a new ED eval. * Telephone Encounter - Jazzy Rodas RN - 07/08/2023 9:45 AM EDT TC to pt- no answer. LM to RC. Ortega, the [facility] ED notes are scanned in .2.23 in encounters * Telephone Encounter - LEN Rutherford - 07/06/2023 6:51 AM EDT Please contact pt to make sure she is feeling better. If she still needs return to work note, please generate and I can either sign on Tuesday or have covering provider sign in the interim. Thank you! * Telephone Encounter - LEN Ruther[place] - 07/04/2023 8:27 PM EDT Yahir Anderson - I am having trouble seeing the ED notes from [facility] in the chart. Can you please let meknow where I can find them? Thanks! * Telephone Encounter - Stephanie Mahendra - 07/01/2023 3:52 PM EDT Tc from pt requesting a letter stating pt is allowed to go back to work following an allergic reaction today. Pt did take benadryl and is now asymptomatic. Any questions, contact pt at [phone] documented in this encounter Plan of Treatment Upcoming Encounters Date Type Department Care Team ([facility] st Contact Info) Description 01/14/2025 10:30 AM EDT Office Visit [facility] MED & PEDS [address] [place] [address] Shannon Wade FNP [address] [place] [address] documented as of this encounter Visit Diagnoses Not on filedocumented in this encounter Care Teams Agronomy Supervisor Relationship Specialty Start Date End Date Shannon Wade FNP [address] [place] [address] PCP - General Family Medicine 07/24/21 Bucky Mccray Community Health Worker 01/06/24 03/28/24 Kyra Forte, MARQUEZ [address] [place] [address] Materials Coordinator 02/21/24 03/28/24 Claudia Sarah Materials CoordinatorIndustrial Servicer 02/24/24 documented as of this encounter
--- OUTSIDE RECORDS SUMMARY | 2024-11-29 18:54 | XMS_ITS | Encounter Summary ---
Author Organization [employer] Address [address] [facility] [address] [place] [address] Care Team Providers Care Low Pressure Firer Name Role Phone Shannon Wade Primary Care Provider [phone] Bucky Mccray Unavailable Unavailable Kyra Forte RN Unavailable [phone] Encounter Details Date Type Department Care Team ([facility] Contact Info) Description 01/18/2024 Orders Only [facility] MED [facility] PEDS [address] [place], [place] [phone] Shannon Wade FNP [address] [place] [address] Social History Tobacco Use Types Packs/Day Years [...] Upcoming Encounters Date Type Department Care Team ([facility] st Contact Info) Description 01/14/2025 10:30 AM EDT Office Visit [facility] MED & PEDS [address] [place] [address] Shannon Wade FNP [address] [place] [address] documented as of this encounter Visit Diagnoses Not on filedocumented in this encounter Additional Health Concerns Assessment Noted Time PHQ-9 Depression Total Score: 25 024 3:37 PM EST documented as of this encounter Care Teams Low Pressure Firer Relationship Specialty Start Date End Date Shannon Wade FNP [address] [place] [address] PCP - General Family Medicine 07/24/21 Bucky Mccray Community Health Worker 01/06/24 03/28/24 Kyra Forte RN [address] [place] [address] Windows Security Analyst 02/21/24 03/28/24 Claudia Sarah Windows Security AnalystTower Foreman 02/24/24 documented as of this encounter
[2024-11-30 04:28] LABS: HBc Num1 0.07 S/CO (0.00-0.79); HBsAGNum1 0.28 S/CO (0.00-0.99); HIV AB/AG Nonreactive (Nonreactive); HIV Num 1 0.07 S/CO (0.00-0.99); Hepatitis B Core Antibody Nonreactive (Nonreactive); Hepatitis B Surface Antigen Negative (Negative); ~HepC Num1 0.07 S/CO (0.00-0.79); ~Hepatitis B Surface Antibody REACTIVE (Nonreactive); ~Hepatitis C Antibody Nonreactive (Nonreactive)
[2024-11-30 11:38] LABS: CT PCR NOT DETECTED (Not Detect.); NG PCR NOT DETECTED (Not Detect.)
[2024-11-30 12:19] LABS: RPR Rapid Plasma Reagin NON-REACTIVE (NON-REACTIVE)
[2024-11-30 13:29] LABS: Herpes Simplex Type 2 IgG <0.90 index
[2024-11-30 13:55] LABS: Bacterial Vaginosis PCR NEGATIVE (Negative); Candida Group PCR DETECTED (Not Detect); Candida glab krusei PCR NOT DETECTED (Not Detect); Trichomonas vaginalis PCR NOT DETECTED (Not Detect)
== END 2024-11-29 15:11 | disposition home or self-care (01) ==
LOC: HO.HHCL 15:10
PROVIDERS: Visit Provider Family Medicine
DX: R30.0 Dysuria (principal); N90.89 Other specified noninflammatory disorders of vulva and perineum
CPT/HCPCS: 36415; 81515; 86592; 86695; 86696; 86704; 86706; 86803; 87086; 87255; 87340; 87389; 87491; 87591

== ENCOUNTER 2024-12-12 19:51 | Inpatient (IN) | payer MEDICAID, SELFPAY ==
--- NOTE | ~2024-12-12 | US_ITS ---
EXAMINATION: US HEAD NECK SOFT TISSUE HISTORY: cervical lymphadenopathy L COMPARISON: Correlation is made with a contrast-enhanced CT of the neck dated 12/12/2024. FINDINGS: Sonographic examination of the left neck was performed. There are multiple prominent lymph nodes in the submental area. These demonstrate cortical thickening and no discernible fatty hilum. These measure 17 x 6 x 14 mm, 10 x 3 x 9 mm, 8 x 5 x 6 mm, and 9 x 6 x 6 mm. These are not enlarged by imaging criteria, however. US/US soft tiss head and/or neck IMPRESSION: Prominent left submental lymph nodes, which may be reactive in nature. Follow-up is suggested. Electronically signed by: Yoan Marie MD 12/17/2024 07:44 AM EDT
--- NOTE | ~2024-12-12 | CT_ITS ---
CLINICAL HISTORY: esophagitis candidiasis CT soft tissue neck with contrast Comparison: None Findings: The visualized intracranial contents are unremarkable. Pharyngeal mucosal space, parapharyngeal fat, prevertebral tissues, and epiglottis are within normal limits. Salivary glands are within normal limits. No sialoliths. No suspicious thyroid nodules. No consolidation at the lung apices. No acute fractures. IMPRESSION: No acute findings. This document has been electronically signed by: Danilo Dumont MD on 12/13/2024 00:03:49
--- NOTE | ~2024-12-12 | XR_ITS ---
CLINICAL HISTORY: cough 1 view chest x-ray Comparison: None Findings: The lungs are clear. Heart size is normal. No acute fracture. IMPRESSION: 1. No acute findings. This document has been electronically signed by: Danilo Dumont MD on 12/12/2024 21:25:26
[2024-12-12 19:54] VITALS: BP 125/89; PULSE 83; RESP 16; TEMP 36.6; O2SAT 97; BMI 19.4
--- NOTE | 2024-12-12 20:10 | ED_ITS ---
HPI - Allergic Reaction General Chief complaint: Allergic Reaction Stated complaint: allergic reaction - swollen tongue Time Seen by Provider: 12/12/24 20:08 Source: patient Mode of arrival: ambulatory Limitations: no limitations History of Present Illness ED Provider: HPI narrative: Patient otherwise healthy was seen by PCP on 11/29/2023 for Ewa vulvovaginitis prescribe Diflucan but patient took the medicine only on 12/08/2024 within few hours of taking the medicine patient noticed hives started taking Benadryl and Zyrtec at home on 12/11 patient noticed throat closing so she went to the hospital and went to the [facility] ER was diagnose as allergic reaction to Diflucan and was given epi and steroids patient's throat pain and muffled voice got worse hence she came to the ER here patient has had HIV hepatitis, syphilis, GC, chlamydia test done on 11/28 as outpatient which were negative patient is not diabetic no prior history of candidiasis in the past no fever no chills patient has some palmar lesions and bilateral toe lesions Related Data Home Medications ?Medication ?Instructions ?Recorded ?Confirmed azelastine 137 mcg (0.1 %) nasal 1 spray intranasal DAILY 12/12/24 12/12/24 spray bupropion HCl 300 mg 24 hr tablet, 300 mg PO DAILY 12/12/24 12/12/24 extended release hydroxyzine pamoate 50 mg capsule 50 mg PO TID PRN anxiety 12/12/24 12/12/24 nystatin 100,000 unit/mL oral 5 ml buccal QID 12/12/24 12/12/24 suspension oxcarbazepine 300 mg tablet 300 mg PO BID 12/12/24 12/12/24 vits no.130-ferrous fum 1 tab PO DAILY 12/12/24 12/12/24 27 mg iron-folic acid 800 mcg tablet ( Vitamin) Allergies Allergy/AdvReac Type Severity Reaction Status Date / Time red dye Allergy Mild hives Verified 12/12/24 20:05 Review of Systems 2 Review of Systems: Yes all other systems are reviewed and are negative [facility] Past Medical History Medical History No known health problems Surgical History History of esophagogastroduodenoscopy (EGD) Family History Family History Maternal Grandfather Diabetes HTN (hypertension) Maternal Grandmother HTN (hypertension) Mother Cancer Social History Social History Smoked in Last 30 Days: No Use of substances other than those prescribed or required for medical reasons: No Substance Use Type: Marijuana Advance Directives: No Advance Directives Information Provided: No Do you have a plan to hurt others: No Plan Patient : No Physical Exam ED Vital Signs: Vital Signs - 24 hr 12/12/24 19:54 12/13/24 00:29 Temperature 98 F 98.6 F Pulse Rate 83 76 Respiratory Rate 16 14 Blood Pressure 125/89 111/76 Pulse Oximetry 97 100 Oxygen Delivery Method Room Air Room Air BMI result Body Mass Index 19.4 Appearance: Alert. Oriented X3. No acute distress. Eyes: PERRLA, No Nystagmus ENT: Significant oral candidiasis spreading all the to the posterior pharynx Neck: Normal inspection. Neck supple. CVS: Normal heart rate and rhythm. Pulses normal. Respiratory: No respiratory distress. Equal air entry bilateral, no wheezing/rales/rhonchi Abdomen: Soft and nontender. Bowel sounds are present, no mass palpable, no CVA tenderness Skin: Skin warm and dry. Erythematous lesion l palm and bilateral feet 2nd and 3rd toe Normal skin turgor. Extremities: No lower extremity edema. No calf tenderness Neuro: Oriented X 3. No motor deficit. Medications Administered Generic Name Dose Route Start Last Admin Trade Name Freq PRN Reason Stop Dose Admin Morphine Sulfate 1 mg 12/12/24 23:38 12/13/24 00:40 Morphine Sulfate 2 Mg/Ml Cartridge IVPUSH 1 mg Q6H PRN Administration Breakthrough Pain Protocol Discontinued Medications Generic Name Dose Route Start Last Admin Trade Name Freq PRN Reason Stop Dose Admin Sodium Chloride 1,000 mls @ 999 mls/hr 12/12/24 20:27 12/12/24 23:10 Ns IV 12/12/24 21:27 Infused .Q1H1M ONE Infusion Caspofungin 70 mg/ Sodium 250 mls @ 250 mls/hr 12/12/24 21:44 12/12/24 22:48 Chloride IV 12/12/24 22:43 250 mls/hr ONCE ONE Administration Iohexol 65 ml 12/12/24 23:28 12/12/24 23:28 Iohexol 350 Mg/Ml 100 Ml Infus..Btl IV 12/12/24 23:29 65 ml ONCE ONE Administration Medical Decision Making Medical Decision Making MDM Narrative: Patient with candidiasis of oropharynx likely spreading to esophagus unable to eat because of pain had muffled voice labs are stable patient also has a rash on the palm and the bilateral feet etiology not clear likely from candidiasis/candidemia will start patient on caspofungin Differential Diagnosis Differential Diagnoses: The differential diagnosis associated with the presentation includes Admission/Observation Consideration of admission/observation: Escalation of care including admission/observation considered Consult Healthcare Provider Management of the patient was discussed with: Hospitalist Lab Data MDM Lab Attestation statement: I reviewed the patient's lab results. 12/12/24 20:34 12/12/24 20:34 Labs: Lab Results 12/12/24 Range/Units 20:34 WBC 10.8 (4.8-10.8) X10*3/uL RBC 4.35 (4.20-5.50) X10*6/uL Hgb 14.3 (12.0-16.0) g/dl Hct 39.8 (37.0-47.0) % MCV 91.5 (80.0-98.0) fL MCH 32.9 (27.0-33.0) pg MCHC 35.9 H (31.0-35.0) g/dl RDW 12.6 (11.0-16.0) % Plt Count 184 (160-400) X10*3/uL MPV 10.3 (9.4-12.3) fL Immature Gran % (Auto) 0.3 (0.0-0.4) % Neut % (Auto) 77.0 H (45-73) % Lymph % (Auto) 14.9 L (20-40) % [place] % (Auto) 6.0 (2-11) % Eos % (Auto) 1.2 (0-4) % Baso % (Auto) 0.6 (0-2) % Lymph # (Auto) 1.6 (1.2-4.9) X10*3/uL [place] # (Auto) 0.7 (0.1-1.2) X10*3/uL Eos # (Auto) 0.1 (0.0-0.4) X10*3/uL Baso # (Auto) 0.1 (0.0-0.2) X10*3/uL Abs Immat Gran (auto) 0.03 (0.00-0.03) X10*3/uL Absolute Neuts (auto) 8.4 H (2.0-8.3) x10*3/uL Absolute Nucleated RBC 0.000 (0.0-0.012) X10*3/uL Nucleated RBC % (auto) 0.0 (0.0-0.2) /100WBC Sodium 140 (135-145) mmol/L Potassium 4.1 (3.3-5.1) mmol/L Chloride 110 H (96-108) mmol/L Carbon Dioxide 19 L (22-29) mmol/L Anion Gap 15 (12-20) BUN 13 (9-16) mg/dL Creatinine 0.66 (0.5-1.4) mg/dL Estim Creat Clear Calc 111.6 Estimated GFR > 60 Random Glucose 72 (60-115) mg/dL Lactic Acid 1.4 (0.5-2.0) mmol/L Calcium 9.6 (8.4-10.2) mg/dL Total Bilirubin 0.7 (0.0-1.0) mg/dL AST 22 (5-31) U/L ALT 13 (0-31) U/L Alkaline Phosphatase 48 (39-117) U/L C-Reactive Protein 1.75 H (< or = 0.50) mg/dL Total Protein 8.1 H (6.5-8.0) g/dL Albumin 4.7 (3.5-5.0) g/dL Beta HCG, Quant < 2 mIU/mL Discharge Plan Discharge Clinical Impression: Oropharyngeal candidiasis Patient Disposition: Admitted As Inpatient Print Language: Honduran
[2024-12-12 20:41] LABS: MANUAL DIFF FLAG NO
[2024-12-12 20:43] LABS: Basophils Absolute Auto 0.1 X10*3/uL (0.0-0.2); Basophils Percent Auto 0.6 % (0-2); Eosinophils Absolute Auto 0.1 X10*3/uL (0.0-0.4); Eosinophils Percent Auto 1.2 % (0-4); Hematocrit 39.8 % (37.0-47.0); Hemoglobin 14.3 g/dl (12.0-16.0); Imm Gran Abs Auto 0.03 X10*3/uL (0.00-0.03); Imm Gran Pct Auto 0.3 % (0.0-0.4); Lymphocytes Absolute Auto 1.6 X10*3/uL (1.2-4.9); Lymphocytes Percent Auto 14.9 % (20-40); Mean Corpuscular HGB Conc 35.9 g/dl (31.0-35.0); Mean Corpuscular Hemoglobin 32.9 pg (27.0-33.0); Mean Corpuscular Volume 91.5 fL (80.0-98.0); Mean Platelet Volume 10.3 fL (9.4-12.3); Monocytes Absolute Auto 0.7 X10*3/uL (0.1-1.2); Neutrophils Absolute Auto 8.4 x10*3/uL (2.0-8.3); Platelet Count 184 X10*3/uL (160-400); Red Blood Count 4.35 X10*6/uL (4.20-5.50); Red Cell Distribution Width 12.6 % (11.0-16.0); White Blood Count 10.8 X10*3/uL (4.8-10.8)
[2024-12-12] MEDS: 0.9 % Sodium Chloride 1,000 ML 999 ML IV (20:49)
[2024-12-12 20:59] LABS: Lactic Acid 1.4 mmol/L (0.5-2.0)
[2024-12-12 21:00] LABS: Alanine Aminotransferase 13 U/L (0-31); Albumin Level 4.7 g/dL (3.5-5.0); Alkaline Phosphatase 48 U/L (39-117); Anion Gap 15 (12-20); Aspartate Amino Transferase 22 U/L (5-31); Bilirubin Total 0.7 mg/dL (0.0-1.0); Blood Urea Nitrogen 13 mg/dL (9-16); C Reactive Protein 1.75 mg/dL (< or = 0.50); Calcium 9.6 mg/dL (8.4-10.2); Carbon Dioxide 19 mmol/L (22-29); Chloride 110 mmol/L (96-108); Creatinine Clr Calc Pharmacy 111.6; Estimated Glomerular Filt Rate > 60; Glucose Random 72 mg/dL (60-115); Potassium 4.1 mmol/L (3.3-5.1); Sodium 140 mmol/L (135-145); Total Protein 8.1 g/dL (6.5-8.0)
--- NOTE | 2024-12-12 22:35 | PHA.MEDREC ---
Addendum entered by Thomas Alicia, [facility] 12/12/24 22:50: med rec reviewed Original Note: Pharmacy Consult ? Medication Reconciliation Pharmacy has completed the medication reconciliation. Spoke with patient to confirm medications. She is not on any control or using eye drops right now. She is finished with cold sore medications. She used nystatin suspension today, confirmed directions [facility]. She also took ibuprofen this morning, she does not regularly take at home.
[2024-12-12] MEDS: Caspofungin Acetate 70 MG in 0.9 % Sodium Chloride 250 ML 250 MG IV (22:48)
[2024-12-12 23:08] LABS: HCG Quantitative < 2 mIU/mL
[2024-12-12] MEDS: iohexoL 350 MG/ML 100 ML INFUS..BTL 65 ML IV (23:28)
[2024-12-13 00:29] VITALS: BP 111/76; PULSE 76; RESP 14; TEMP 37; O2SAT 100
[2024-12-13] MEDS: Morphine Sulfate 2 MG/ML CARTRIDGE 1 MG IVPUSH ×3 (00:40→22:28)
--- NOTE | 2024-12-13 01:04 | MHC.EDTECH ---
this tech assumed care of pt @ [id number]
--- NOTE | 2024-12-13 01:33 | PC.NURSE ---
This RN assumed care at 23:30 from RN Marci, partner at the bedside, no respiratory distress, medicated per nov, This RN took vitals
--- NOTE | 2024-12-13 02:09 | PM.IMHP ---
History of Present Illness Date of Service: 12/13/24 Chief Complaint: Throat pain 24-year-old female with a past medical history of anxiety, depression presented to the hospital today with a chief complaint of throat pain. Patient reported that about a month ago she has vaginal discharge, swelling, went to the PCP who did smear for the vaginal discharge and found she has candidiasis and was given fluconazole. But she has not taken the fluconazole until last Tuesday. If she took the dose of fluconazole on last Tuesday she felt tongue swelling, throat tightness, hives on her body. She tried to take Benadryl, Claritin, ibuprofen at home but no significant improvement; subsequently went to the [facility] yesterday complaining of above symptoms; the team at the [facility] felt it is probably allergy reaction to the fluconazole and give her a dose of EpiPen, steroids and subsequently discharged her home. Patient mentioned that today she still has mild swelling on the tongue, pain in the tongue, whitish discoloration in the tongue on the inside of the cheek; also noted small rash on her upper chest. Patient mentioned that she has been developing throat pain for few days now. Lately has been having difficulty speaking and also difficulty swallowing. Has been not able to take any pills. Patient denies any chest pain or palpitations. Denies any nausea or vomiting. Denies any cough or sputum production. Denies any urinary symptoms.-patient reports that she used to have urinary frequency and burning but currently significantly improving. Patient mentioned that she has been monogamous relationship. He has a new boyfriend for the past 3 years. He used to be with another boyfriend for about 4 years before the current boyfriend. Denies high-risk sexual behavior. Denies any toxic habits. Mentions that her PCP has done chlamydia, gonorrhea, HIV few weeks ago and resulted negative. 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 Patient denies any numbness tingling or focal weakness. Denies any lightheadedness or dizziness. Review of all other systems is negative except mentioned above ER course: Per ER team, patient noted to have oral thrush, given caspofungin-x1. CT neck was done which showed no acute findings. Ordered repeat HIV. [facility] Medical History No known health problems Family History Maternal Grandfather Diabetes HTN (hypertension) Maternal Grandmother HTN (hypertension) Mother Cancer Surgical History History of esophagogastroduodenoscopy (EGD) Social History Smoked in Last 30 Days: No Use of substances other than those prescribed or required for medical reasons: No Substance Use Type: Marijuana Advance Directives: No Advance Directives Information Provided: No Do you have a plan to hurt others: No Plan Patient : No Meds Allergies Allergy/AdvReac Type Severity Reaction Status Date / Time red dye Allergy Mild hives Verified 12/12/24 20:05 Active Medications: Current Medications Acetaminophen (Acetaminophen 325 Mg Tablet) 650 mg PO Q6H PRN PRN Reason: Pain, Mild 1-3,fever,headache Benzonatate (Benzonatate 100 Mg Capsule) 100 mg PO TID PRN PRN Reason: Cough Calcium Carbonate (Calcium Carbonate 750 Mg Tab.Chew) 750 mg PO Q4H PRN PRN Reason: Heartburn Diphenhydramine HCl (Diphenhydramine Hcl 50 Mg/Ml Vial) 25 mg IVPUSH Q6H PRN PRN Reason: Rash Hydroxyzine HCl (Hydroxyzine Hcl 50 Mg Tablet) 50 mg PO TID PRN PRN Reason: anxiety Caspofungin 50 mg/ Sodium (Chloride) 250 mls @ 250 mls/hr IV Q24H NEIL Magnesium Hydroxide (Milk Of Magnesia 30 Ml Oral.Susp) 30 ml PO DAILY PRN PRN Reason: Constipation Melatonin (Melatonin 3 Mg Tablet) 6 mg PO BEDTIME PRN PRN Reason: Insomnia Morphine Sulfate (Morphine Sulfate 2 Mg/Ml Cartridge) 1 mg IVPUSH Q6H PRN; Protocol PRN Reason: Breakthrough Pain Last Admin: 12/13/24 00:40 Dose: 1 mg Oxcarbazepine (Oxcarbazepine 300 Mg Tablet) 300 mg PO BID NEIL Pantoprazole Sodium (Pantoprazole Sodium 40 Mg/10 Ml Vial) 40 mg IVPUSH DAILY@0630 NEIL Sodium Chloride (0.9 % Sodium Chloride Flush 3 Ml Syringe) 3 ml IVFLUSH QSHIFT [facility] Home Medications ?Medication ?Instructions ?Recorded ?Confirmed ?Last Taken ?Type azelastine 137 mcg (0.1 %) nasal 1 spray intranasal DAILY 12/12/24 12/12/24 Unknown History spray bupropion HCl 300 mg 24 hr tablet, 300 mg PO DAILY 12/12/24 12/12/24 Unknown History extended release hydroxyzine pamoate 50 mg capsule 50 mg PO TID PRN anxiety 12/12/24 12/12/24 Unknown History nystatin 100,000 unit/mL oral 5 ml buccal QID 12/12/24 12/12/24 12/12/24 History suspension oxcarbazepine 300 mg tablet 300 mg PO BID 12/12/24 12/12/24 Unknown History vits no.130-ferrous fum 1 tab PO DAILY 12/12/24 12/12/24 Unknown History 27 mg iron-folic acid 800 mcg tablet ( Vitamin) Physical Exam Vital Signs and Narrative: Vital Signs: Last Vital Signs Temp 98.6 F 12/13/24 00:29 Pulse 76 12/13/24 00:29 Resp 14 12/13/24 00:29 BP 111/76 12/13/24 00:29 Pulse Ox 100 12/13/24 00:29 O2 Del Method Room Air 12/13/24 00:29 BMI result Body Mass Index 19.4 Gen: Appears be in no acute distress HEENT: NCAT, Moist mucosa. Posterior pharynx appears fairly okay. Patient's tongue on all sides has thrush with whitish plaques. Also noted thrush on the inner side of the cheek. Pulmonary: Vesicular breath sounds, fair air entry; no wheezing CVS: Normal S1-S2 Abdomen: BS+, Soft, Nontender Extremities: Warm well perfused Neuro: Alert and awake. Results Labs 12/12/24 20:34 12/12/24 20:34 Labs: Laboratory Results - last 24 hr 12/12/24 20:34 MCV 91.5 MCH 32.9 MCHC 35.9 H RDW 12.6 Plt Count 184 MPV 10.3 Immature Gran % (Auto) 0.3 Neut % (Auto) 77.0 H Lymph % (Auto) 14.9 L [place] % (Auto) 6.0 Eos % (Auto) 1.2 Baso % (Auto) 0.6 Lymph # (Auto) 1.6 [place] # (Auto) 0.7 Eos # (Auto) 0.1 Baso # (Auto) 0.1 Abs Immat Gran (auto) 0.03 Absolute Neuts (auto) 8.4 H Absolute Nucleated RBC 0.000 Nucleated RBC % (auto) 0.0 Anion Gap 15 Estim Creat Clear Calc 111.6 Estimated GFR > 60 Random Glucose 72 Lactic Acid 1.4 Calcium 9.6 Total Bilirubin 0.7 AST 22 ALT 13 Alkaline Phosphatase 48 C-Reactive Protein 1.75 H Total Protein 8.1 H Albumin 4.7 Beta HCG, Quant < 2 Assessment and Plan (1) Oropharyngeal candidiasis: Status: Acute Plan 24-year-old female with a past medical history of anxiety, depression presented to the hospital today with a chief complaint of throat pain/tongue pain/difficulty swallowing/whitish plaques on the tongue. Concern for possible oropharyngeal candidiasis. Admitted for further management. Oropharyngeal candidiasis: Dysphagia/odynophagia: Patient has been symptomatic for about couple weeks now. Has had vaginal candidiasis diagnosed with her PCP. On November 29 patient has chlamydia, gonorrhea, HIV, Lyme test and negative. CT of the soft tissue neck showed no acute findings. Repeat HIV sent on admission today. Empirically covered with caspofungin ID consult for further input Follow-up cultures NPO Gentle IV fluids Gastroenterology consult. Pain control Rash: Patient developed throat tightening, tongue swelling, hives, upper chest rash after she took fluconazole. Symptoms started about 1 hour later. Patient tried home remedy with Benadryl, Claritin, ibuprofen. Yesterday she went to [facility] and received EpiPen, steroids. Her rash slightly improving. Airway/breathing comfortably. No shortness a breath. Anxiety/depression/PTSD: Continue home hydroxyzine/oxcarbazepine when patient is more comfortable swallowing. DVT prophylaxis: SubQ heparin Code status: Full code Quality Stroke Does the patient have a stroke diagnosis?: No VTE Prior VTE?: No VTE Risk Level:: Medical - moderate - high VTE Device Contraindication: N/A - Device Ordered VTE Drug Contraindication: N/A - Med Ordered
[2024-12-13] MEDS: 0.9 % Sodium Chloride Flush 3 ML SYRINGE IVFLUSH (02:44)
[2024-12-13] MEDS: Dextrose 5 % and 0.45 % NaCl 1,000 ML 100 ML IVCONT ×3 (02:45→22:48)
[2024-12-13] MEDS: Heparin Sodium,Porcine 5,000 UNIT/ML VIAL 5000 UNIT SUBCUT ×3 (02:49→18:37)
--- NOTE | 2024-12-13 02:53 | PC.NURSE ---
pt ambulate to bathroom, medicated per nov.
[2024-12-13 04:19] VITALS: BP 109/73; PULSE 68; RESP 13; TEMP 36.9; O2SAT 100
[2024-12-13 04:25] LABS: HIV AB/AG Nonreactive (Nonreactive); HIV Num 1 0.06 S/CO (0.00-0.99)
[2024-12-13 06:08] LABS: MANUAL DIFF FLAG NO
[2024-12-13 06:12] LABS: Basophils Percent Auto 0.5 % (0-2); Eosinophils Absolute Auto 0.2 X10*3/uL (0.0-0.4); Hematocrit 34.2 % (37.0-47.0); Hemoglobin 12.1 g/dl (12.0-16.0); Imm Gran Abs Auto 0.02 X10*3/uL (0.00-0.03); Imm Gran Pct Auto 0.3 % (0.0-0.4); Lymphocytes Absolute Auto 2.2 X10*3/uL (1.2-4.9); Lymphocytes Percent Auto 29.5 % (20-40); Mean Corpuscular HGB Conc 35.4 g/dl (31.0-35.0); Mean Corpuscular Hemoglobin 32.2 pg (27.0-33.0); Mean Platelet Volume 10.6 fL (9.4-12.3); Monocytes Absolute Auto 0.6 X10*3/uL (0.1-1.2); Monocytes Percent Auto 8.2 % (2-11); Neutrophils Absolute Auto 4.5 x10*3/uL (2.0-8.3); Neutrophils Percent Auto 59.5 % (45-73); Platelet Count 167 X10*3/uL (160-400); Red Blood Count 3.76 X10*6/uL (4.20-5.50); Red Cell Distribution Width 12.3 % (11.0-16.0); White Blood Count 7.5 X10*3/uL (4.8-10.8)
[2024-12-13] MEDS: Pantoprazole Sodium 40 MG/10 ML VIAL IVPUSH (06:17)
--- NOTE | 2024-12-13 06:21 | PC.NURSE ---
pt given warm blanket, medicated per nov.
[2024-12-13 06:30] LABS: Anion Gap 12 (12-20); Blood Urea Nitrogen 10 mg/dL (9-16); Calcium 8.7 mg/dL (8.4-10.2); Carbon Dioxide 20 mmol/L (22-29); Chloride 110 mmol/L (96-108); Creatinine Clr Calc Pharmacy 120.8; Estimated Glomerular Filt Rate > 60; Glucose Random 81 mg/dL (60-115); Potassium 3.5 mmol/L (3.3-5.1); Sodium 138 mmol/L (135-145)
--- NOTE | 2024-12-13 07:00 | PC.NURSE ---
pt tongue still remain swollen but airway still open
--- NOTE | 2024-12-13 07:34 | PC.NURSE ---
Resumed care of pt at 0700, she is resting in bed with her significant other at bedside. Pt typing on her phone for communication. Mouth swabs given since she is reporting dry mouth. Pt remains NPO. Tongue remains swollen and red, but still able to visualize her uvula with moderate discomfort for her to open her mouth that wide. External throat has no swelling or redness noted. Pt remains stable on RA at this time. Pt in agreement with plan at this time, call dickey within reach, all questions and concerns anwsered
--- NOTE | 2024-12-13 08:29 | PC.NURSE ---
MD notified of patient not wanting to take PO medications at this time d/t pain. Mouth swabs given to help with dry mouth but pt tolerated poorly. Pt reports she has not taken any of her medications since tuesday d/t pain. No further orders at this time
[2024-12-13 09:15] VITALS: BP 111/77; PULSE 88; RESP 16; TEMP 37; O2SAT 98
[2024-12-13] MEDS: Lidocaine HCl Viscous 2 % 15 ML SOLUTION MUCOUS MEM ×3 (10:48→20:03)
--- NOTE | 2024-12-13 10:48 | MHC.CM.PN ---
CM met with Patient in ED-Over. Patient lives in a house with her Mother, Brother, Aunt and Uncle and she is functionally independent. Home/self care is Patient's goal and CM has initiated and will follow for dc planning. PCP/SENIOR HADOOP DEVELOPER is Shannon Wade and Patient's Mother or Boyfriend will transport to home.
--- NOTE | 2024-12-13 12:34 | PC.NURSE ---
Assumed care of pt since transfer to [facility], she has been in NAD since arrival. airway has remained patent, uvula visble, midline. pt managing own secretions. endorsing tongue, r sided cheek pain, bilat toe pain.no redness or warmth extending beyond demarcated lines from ED. lidocaine improved mouth pain, able to tolerate pureed food with frequent sips of water. wctm.
--- NOTE | 2024-12-13 14:08 | PM.GICN ---
History of Present Illness Data of Consult Service Date: 12/13/24 Requesting physician: Curly Iniguez Primary Care Provider: LEN Rutherford HPI Reason for consult: Odynophagia 24 YF with anxiety, depression seen at [facility] ED on 12/12/24 with throat pain. Patient reported that about a month ago she had vaginal discharge, swelling, seen by PCP and was prescribed Fluconazole for vaginal candidiasis (diagnosed on smear of vaginal discharge) Pt took the fluconazole on 12/08/24 (last Tuesday). After taking the first dose of fluconazole, she felt tongue swelling, throat tightness, hives on her body. She tried to take Benadryl, Claritin, ibuprofen at home without significant improvement; 12/11/24 Pt noticed throat closing and went to [facility] ED and felt to have an allergic reaction to the fluconazole. Pt was treated with a dose of EpiPen, steroids, Pepcid and Toradol, felt a little better and was discharged home. Patient's throat pain and muffled voice got worse so she came to [facility] ED on 12/12/24. Today, pt reports feeling a little better and continues to have difficulty in speaking and notes swallowing is painful. Has not been able to take any pills. She complains of mild swelling on the tongue, pain in the tongue, whitish discoloration in the tongue and inside of the cheek She also complains of pain in the lower teeth. She has been tolerating a pureed diet. Of note 11/28/24 Pt was checked for HIV hepatitis, syphilis, GC, chlamydia as outpatient and tests were negative Pt denies a hx of DM or past history of candidiasis Pt notes constipation and denies fever, chills, nausea or vomiting. She admits to wt loss of 8 lbs ( wt decreased from 125 on 11/29 to 117) She also notes rash on her upper chest, palmar lesions and bilateral toe lesions Patient denies smoking or ETOH abuse. She is studying criminal justice at [employer] and also works in an [employer]. As she lives with her family. Labs showed mild anemia and elevated CRP of 1.[address] soft tissues of Neck were normal Review of Systems Review of Systems: Yes all other systems are reviewed and are negative PMFSH Past Medical History Medical History No known health problems Family History Family History Maternal Grandfather Diabetes HTN (hypertension) Maternal Grandmother HTN (hypertension) Mother Cancer Surgical History Surgical History History of esophagogastroduodenoscopy (EGD) Social History Social History Household Members: Family Housing: House Do you presently have visiting nurse or other home services: No Patient Tobacco Use Status: Never used Tobacco Substance Use Type: Marijuana service: No Meds Allergies Allergy/AdvReac Type Severity Reaction Status Date / Time Fluconazole Allergy Intermediate Rash Uncoded 12/13/24 02:23 Active Medications: Current Medications Acetaminophen (Acetaminophen 325 Mg Tablet) 650 mg PO Q6H PRN PRN Reason: Pain, Mild 1-3,fever,headache Benzonatate (Benzonatate 100 Mg Capsule) 100 mg PO TID PRN PRN Reason: Cough Calcium Carbonate (Calcium Carbonate 750 Mg Tab.Chew) 750 mg PO Q4H PRN PRN Reason: Heartburn Diphenhydramine HCl (Diphenhydramine Hcl 50 Mg/Ml Vial) 25 mg IVPUSH Q6H PRN PRN Reason: Rash Heparin Sodium (Porcine) (Heparin Sodium,Porcine 5,000 Unit/Ml Vial) 5,000 unit SUBCUT Q8H NEIL Last Admin: 12/13/24 10:30 Dose: 5,000 unit Hydroxyzine HCl (Hydroxyzine Hcl 50 Mg Tablet) 50 mg PO TID PRN PRN Reason: anxiety Caspofungin 50 mg/ Sodium (Chloride) 250 mls @ 250 mls/hr IV Q24H NEIL Dextrose/Sodium Chloride (D51/2ns) 1,000 mls @ 100 mls/hr IVCONT .Q10H NEIL Last Admin: 12/13/24 12:46 Dose: 100 mls/hr Lidocaine HCl (Lidocaine Hcl Viscous 2 % 15 Ml Solution) 15 ml MUCOUS MEM Q3H PRN PRN Reason: odynophagia Last Admin: 12/13/24 10:48 Dose: 15 ml Magnesium Hydroxide (Milk Of Magnesia 30 Ml Oral.Susp) 30 ml PO DAILY PRN PRN Reason: Constipation Melatonin (Melatonin 3 Mg Tablet) 6 mg PO BEDTIME PRN PRN Reason: Insomnia Melatonin (Melatonin 3 Mg Tablet) 6 mg PO BEDTIME PRN PRN Reason: Insomnia Morphine Sulfate (Morphine Sulfate 2 Mg/Ml Cartridge) 1 mg IVPUSH Q6H PRN; Protocol PRN Reason: Breakthrough Pain Last Admin: 12/13/24 00:40 Dose: 1 mg Oxcarbazepine (Oxcarbazepine 300 Mg Tablet) 300 mg PO BID [facility] Last Admin: 12/13/24 08:43 Dose: Not Given Pantoprazole Sodium (Pantoprazole Sodium 40 Mg/10 Ml Vial) 40 mg IVPUSH DAILY@0630 [facility] Last Admin: 12/13/24 06:17 Dose: 40 mg Sodium Chloride (0.9 % Sodium Chloride Flush 3 Ml Syringe) 3 ml IVFLUSH [facility] Last Admin: 12/13/24 08:26 Dose: Not Given Sodium Chloride (0.9 % Sodium Chloride Flush 3 Ml Syringe) 3 ml IVFLUSH [facility] Last Admin: 12/13/24 08:27 Dose: Not Given Home Medications ?Medication ?Instructions ?Recorded ?Confirmed ?Last Taken ?Type azelastine 137 mcg (0.1 %) nasal 1 spray intranasal DAILY 12/12/24 12/12/24 Unknown History spray bupropion HCl 300 mg 24 hr tablet, 300 mg PO DAILY 12/12/24 12/12/24 Unknown History extended release hydroxyzine pamoate 50 mg capsule 50 mg PO TID PRN anxiety 12/12/24 12/12/24 Unknown History nystatin 100,000 unit/mL oral 5 ml buccal QID 12/12/24 12/12/24 12/12/24 History suspension oxcarbazepine 300 mg tablet 300 mg PO BID 12/12/24 12/12/24 Unknown History vits no.130-ferrous fum 1 tab PO DAILY 12/12/24 12/12/24 Unknown History 27 mg iron-folic acid 800 mcg tablet ( Vitamin) Physical Exam Vital Signs: Vital Signs: Last Vital Signs Temp 98.6 F 12/13/24 09:15 Pulse 88 12/13/24 09:15 Resp 16 12/13/24 09:15 BP 111/77 12/13/24 09:15 Pulse Ox 98 12/13/24 09:15 O2 Del Method Room Air 12/13/24 09:15 BMI result Body Mass Index 19.4 Const: General: healthy appearing and no acute distress Nutritional Appearance: average body habitus Orientation/consciousness: patient oriented x3 Limitations: no limitations HEENT: Head: Yes normal to inspection Ears: hearing grossly normal bilaterally Mouth: Normal oral and palatal mucosa present Eyes: Sclerae: sclerae normal Pupils: Equal, round and reactive pupils present Neck: Neck: Yes normal visual inspection Chest: Chest palpation & inspection: normal inspection of the chest Resp: Effort & Inspection: normal respiratory effort Auscultation: clear to auscultation bilaterally Cardio: Palpation: normal PMI Rate: regular rate Rhythm: regular rhythm Heart sounds: S1 normal heart sound present, S2 normal heart sound present and no murmurs GI: Palpation (GI): Soft to palpation, nontender and No hepatosplenomegaly present Auscultation: normal bowel sounds Rectal Exam - Female: deferred Skin: General skin exam: no rashes or lesions noted Neuro: General: patient oriented x3, gait normal and moves all extremities Cranial nerves: Yes Equal, round and reactive pupils present Psych: Appearance: grossly normal Mental Status: mental status grossly normal Results Labs 12/13/24 05:26 12/13/24 05:26 Labs: Short CBC 12/12/24 12/13/24 Range/Units 20:34 05:26 WBC 10.8 7.5 (4.8-10.8) X10*3/uL Hgb 14.3 12.1 (12.0-16.0) g/dl Hct 39.8 34.2 L (37.0-47.0) % Plt Count 184 167 (160-400) X10*3/uL [facility] 12/12/24 12/13/24 20:34 05:26 Sodium 140 138 Potassium 4.1 3.5 Chloride 110 H 110 H Carbon Dioxide 19 L 20 L BUN 13 10 Creatinine 0.66 0.61 Calcium 9.6 8.7 D Liver Function 12/12/24 Range/Units 20:34 Total Bilirubin 0.7 (0.0-1.0) mg/dL AST 22 (5-31) U/L ALT 13 (0-31) U/L Alkaline Phosphatase 48 (39-117) U/L Albumin 4.7 (3.5-5.0) g/dL Assessment and Plan (1) Oropharyngeal candidiasis: Status: Acute (2) Nausea and vomiting: Status: Acute (3) Epigastric pain: Status: Acute (4) Odynophagia: Status: Acute Plan 24 YF with anxiety, depression admitted to [facility] on 12/13/24 with mouth and throat pain and odynophagia, skin rash after taking Fluconazole. 12/11/24 Pt noticed throat closing and went to [facility] ED and felt to have an allergic reaction to the fluconazole. Pt was treated with a dose of EpiPen, steroids, Pepcid and Toradol, felt a little better and was discharged home. Patient's throat pain and muffled voice got worse so she came to [facility] ED on 12/12/24. Today, pt reports feeling a little better and continues to have difficulty in speaking and notes swallowing is painful. She admits to wt loss of 8 lbs ( wt decreased from 125 on 11/29 to 117) Labs showed mild anemia and elevated CRP of 1.[address] soft tissues of Neck were normal Pt's symptoms can be due to pharyngo-esophageal candidiasis versus ? Sal Rodríguez's syndrome RECOMMENDATIONS: 1. Agree with IV PPI, pain medications, viscous lidocaine and IV Caspofungin 2. Further evaluation with EGD - scheduled on 12/14/24. EGD procedure and potential complications were reviewed with the patient. ADDENDUM: EGD was cancelled by anesthesia due to tongue swelling. EGD can be rescheduled at a later date once swelling of the tongue resolves and if pt continues to have dysphagia symptoms. Procedures Date of Service Date of Service: 12/14/24
--- NOTE | 2024-12-13 14:10 | MHC.SL.SWA ---
Speech Pathologist Impression: Severe Odynophagia Risk of Aspiration Due to: Poor PO Intake Dysphasia Diet Status: Liquid Consistency and Strategies for Safe Swallow: Liquid Intake Recommendation: Thin Liquid Intake Strategies: Small Sips Solid Food Consistency: Dietary Recommendations: Pureed (NDD1) Additional Modifications to Solid Foods: Follow all bites of puree with sip of liquid. Avoid acidic foods, including apple sauce (patient reacted to apple sauce). Patient also reported not liking milk based purees. Patient should eat only as tolerated. When administering meds in puree, small bites followed by sip of water. Oral Medication Intake: Crushed with Puree Please contact the pharmacy regarding appropriate crushable or liquid drug formulations that are available whenever modified delivery is recommended. Compensatory Strategies and Precautions to be Taken for Safe Swallow: Sitting Upright (90 deg) Liquids from Cup Liquids from Straw Small Bites and Sips Alternate Liquids/Solids Rate of Ingestion Change Avoid Specific Foods Supervision While Eating and Drinking for Safe Swallow: Intermittent Supervision Foods to Avoid: Acidic foods Swallowing Recommended Treatments: Compens. Strategy Educat. Recommendation for Speech: Inpatient Speech Therapy Comment: Patient with severe Odynophagia and lingual swelling, making oral intake very challenging at this time. Patient with severe dysarthria as well, due to soreness of tongue, reduced movement, avoidance of contact needed for speech. On assessment today, patient tolerated puree, but required sip of liquid to help propel bolus to swallow. Patient with c/o oral pain throughout. Recommend START diet of PUREE, (NDD1) with THIN liquids, pills crushed in puree. In all presentations of solids/purees, or medication crushed in puree, small bites, followed by sip of liquids. Patient unlikely to take much orally secondary to current level of oral pain. MD/RD notified of recommendation by secure text, RN in person. COMMUNITY BOARD MEMBER will follow, advance diet with cessation of oral discomfort. Frequency/Duration: Date Range for Service Req: Timeline to reassess: Ultrasound Applications Specialist Clinican/Clinical Fellow: No Supervisory Statement: I have reviewed and agree with the student/clinical fellow's documentation: N/A Speech Language Pathologist: Sumaya Noguera M.A., [facility]-COMMUNITY BOARD MEMBER
[2024-12-13] MEDS: dexAMETHasone sod phosphate 4 MG/ML VIAL 8 MG IVPUSH (15:16)
--- NOTE | 2024-12-13 15:41 | PC.NURSE ---
Pt describing worsening throat tightness, indicates submandibular pain, tender to touch, increased tightness sensation with swallowing. Airway remains patent, maintaining her secretions. No other observable signs of swelling. Uvula remains midline, tongue has not increased in size. MD notified, medicated with steroids, seen by hospitalist and GI. Plan for EGD tomorrow afternoon around 3pm. Pt aware of plan for care and agreeable. wctm.
--- NOTE | 2024-12-13 17:16 | PM.EVENT ---
Event Note Date of Service: 12/13/24 Event Note: Fevers shortness examined the patient. Throat pain well control with morphine and viscous lidocaine. She has been able to swallow sips of fluids. Decadron 8 mg IV x1 given to be held with inflammation. We will continue current treatment. Patient evaluated by GI. Patient will undergo EGD tomorrow. ID consult pending. Time Spent With Patient Time: Total time managing care of this patient today ____ minutes.
[2024-12-13 19:46] VITALS: BP 107/71; PULSE 67; RESP 16; TEMP 36.9; O2SAT 97
[2024-12-13] MEDS: OXcarbazepine 300 MG TABLET PO (20:13)
[2024-12-13 21:00] VITALS: BMI 22.4
[2024-12-13 21:02] VITALS: BP 107/69; PULSE 71; RESP 18; TEMP 36.4; O2SAT 98
[2024-12-13 22:28] VITALS: RESP 16
[2024-12-13] MEDS: Ketorolac Tromethamine 30 MG/ML VIAL IVPUSH (23:20)
--- NOTE | 2024-12-14 01:47 | PC.NURSE ---
Scheduled 12/13/24 2300 medication Caspofungin acetate is not available, it is a pharmacy mixed medication. Patient was transferred from [facility] to [facility] unit 12/13/24. Unable to locate this medication, nursing central office operator supervisor made aware. Per nursing central office operator supervisor to call pharmacy at [phone], notify medication was missing and patient did not receive medication.
[2024-12-14 03:59] VITALS: BP 111/67; PULSE 68; RESP 18; TEMP 36.7; O2SAT 100
[2024-12-14] MEDS: Ketorolac Tromethamine 30 MG/ML VIAL IVPUSH (05:40)
[2024-12-14] MEDS: Pantoprazole Sodium 40 MG/10 ML VIAL IVPUSH (05:41)
[2024-12-14 07:35] VITALS: BP 110/64; PULSE 75; RESP 16; TEMP 36.7; O2SAT 99
--- NOTE | 2024-12-14 10:06 | P.PNIM_ITS ---
Subjective Subjective Date of Service: 12/14/24 Interval History: Continue with swallowing difficulty. Review of Systems Review of Systems: Yes all other systems are reviewed and are negative Physical Exam 2 Vital Signs: Vital Signs: Last Vital Signs Temp 98.0 F 12/14/24 07:35 Pulse 75 12/14/24 07:35 Resp 16 12/14/24 07:35 BP 110/64 12/14/24 07:35 Pulse Ox 99 12/14/24 07:35 O2 Del Method Room Air 12/14/24 07:35 BMI result Body Mass Index 22.4 Constitutional - Awake and Alert, No apparent distress HEENT - PERRL, EOMI. Oropharynx: Minimal edema, no redness, no thrush. Mild swelling of the tongue. Moist oral mucosa. Heart - RRR, No murmurs Lungs- Normal lung expansion, Normal respiratory effort, No respiratory distress, CTA bilaterally Gastrointestinal - NT / ND; +BS; No rebound or guarding Extremities - no calf tenderness bilaterally, no swelling. Toes erythema swelling. Musculoskeletal - Normal inspection, normal ROM Skin - Warm/Dry Neurological - Alert & oriented x3. Moving all extremities spontaneously. Normal speech. Psychological - Appropriate affect Objective Data Active Medications Acetaminophen (Acetaminophen 325 Mg Tablet) 650 mg PO Q6H PRN PRN Reason: Pain, Mild 1-3,fever,headache Benzonatate (Benzonatate 100 Mg Capsule) 100 mg PO TID PRN PRN Reason: Cough Calcium Carbonate (Calcium Carbonate 750 Mg Tab.Chew) 750 mg PO Q4H PRN PRN Reason: Heartburn Diphenhydramine HCl (Diphenhydramine Hcl 50 Mg/Ml Vial) 25 mg IVPUSH Q6H PRN PRN Reason: Rash Heparin Sodium (Porcine) (Heparin Sodium,Porcine 5,000 Unit/Ml Vial) 5,000 unit SUBCUT Q8H [facility] Last Admin: 12/14/24 01:42 Dose: Not Given Documented By: EDU Non-Admin Reason: procedure in the morning Hydroxyzine HCl (Hydroxyzine Hcl 50 Mg Tablet) 50 mg PO TID PRN PRN Reason: anxiety Caspofungin 50 mg/ Sodium (Chloride) 250 mls @ 250 mls/hr IV Q24H [facility] Last Admin: 12/14/24 01:46 Dose: Not Given Documented By: EDU Non-Admin Reason: Med Not Available Comments: pharmacy med mix; not available, 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 Dextrose/Sodium Chloride (D51/2ns) 1,000 mls @ 100 mls/hr IVCONT .Q10H [facility] Last Admin: 12/13/24 22:48 Dose: 100 mls/hr Documented By: EDU Lidocaine HCl (Lidocaine Hcl Viscous 2 % 15 Ml Solution) 15 ml MUCOUS MEM Q3H PRN PRN Reason: odynophagia Last Admin: 12/13/24 20:03 Dose: 15 ml Documented By: DIPTI Magnesium Hydroxide (Milk Of Magnesia 30 Ml Oral.Susp) 30 ml PO DAILY PRN PRN Reason: Constipation Melatonin (Melatonin 3 Mg Tablet) 6 mg PO BEDTIME PRN PRN Reason: Insomnia Melatonin (Melatonin 3 Mg Tablet) 6 mg PO BEDTIME PRN PRN Reason: Insomnia Morphine Sulfate (Morphine Sulfate 2 Mg/Ml Cartridge) 1 mg IVPUSH Q6H PRN; Protocol PRN Reason: Breakthrough Pain Last Admin: 12/13/24 22:28 Dose: 1 mg Documented By: EDU Oxcarbazepine (Oxcarbazepine 300 Mg Tablet) 300 mg PO BID [facility] Last Admin: 12/13/24 20:13 Dose: 300 mg Documented By: DIPTI Pantoprazole Sodium (Pantoprazole Sodium 40 Mg/10 Ml Vial) 40 mg IVPUSH DAILY@0630 [facility] Last Admin: 12/14/24 05:41 Dose: 40 mg Documented By: PHILLIP Sodium Chloride (0.9 % Sodium Chloride Flush 3 Ml [facility]) [facility] Admin: 12/14/24 08:38 Dose: Not Given Documented By: MICKEY Non-Admin Reason: IV Running Sodium Chloride (0.9 % Sodium Chloride Flush 3 Ml Syringe) 3 ml IVFLUSH QSMOFT [facility] Last Admin: 12/14/24 08:38 Dose: Not Given Documented By: MICKEY Non-Admin Reason: IV Running Labs 12/13/24 05:26 12/13/24 05:26 Microbiology Microbiology Results: Microbiology 12/12/24 20:55 Blood Culture - Preliminary Blood - Venous No growth after 24 hours. 12/12/24 20:55 Blood Culture - Preliminary Blood - Venous No growth after 24 hours. Assessment and Plan (1) Odynophagia: Status: Acute (2) Dysphagia: Status: Acute Plan Lisa Hernandez is a 24-year-old woman admitted with: Dysphagia/odynophagia ?Esophageal candidiasis, ? allergic reaction to fluconazole + multiple toes edema/erythema, ? Hereditary angioedema On November 29 patient has chlamydia, gonorrhea, HIV, Lyme test and negative. CT of the soft tissue neck showed no acute findings. Repeat HIV Check C1 esterase inhibitor, C1 esterase protein, C4 levels Continue caspofungin ID consult pending Follow-up cultures Gentle IV fluids GI - colonoscopy to the Pain control with morphine and Toradol Quality Stroke Does the patient have a stroke diagnosis?: No VTE Prior VTE?: No VTE Risk Level:: Medical - moderate - high VTE Device Contraindication: N/A - Device Ordered VTE Drug Contraindication: N/A - Med Ordered
[2024-12-14] MEDS: Dextrose 5 % and 0.45 % NaCl 1,000 ML 100 ML IVCONT (10:34)
--- NOTE | 2024-12-14 12:41 | MHC.SLORD ---
Speech Language Pathology Order Status: Per EMR, EGD scheduled for 3pm today- Patient is NPO for procedure, thus no PO trials were given.
--- NOTE | 2024-12-14 14:52 | P.CNID_ITS ---
History of Present Illness Data of Consult Service Date: 12/14/24 Requesting physician: Angy Cristobal Primary Care Provider: LEN Rutherford HPI Reason for consult: throat pain She presents with one week throat pain and odynophagia with inability to speak well. SHe has tongue swelling as well. She had received Diflucan for possible candidal esophagitis and swelling in mouth and neck bacame worse. She reports negative GC and chlamydia and RPR. She also has negative documented HIV test. 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 Review of Systems 2 Review of Systems: Yes all other systems are reviewed and are negative PMFSH Past Medical History Medical History No known health problems Family History Family History Maternal Grandfather Diabetes HTN (hypertension) Maternal Grandmother HTN (hypertension) Mother Cancer Family history: reviewed and not pertinent Surgical History Surgical History History of esophagogastroduodenoscopy (EGD) Social History Social History Household Members: Family Housing: House Do you presently have visiting nurse or other home services: No Patient Tobacco Use Status: Never used Tobacco Substance Use Type: Marijuana service: No Meds Allergies Allergy/AdvReac Type Severity Reaction Status Date / Time Fluconazole Allergy Intermediate Rash Uncoded 12/13/24 02:23 Active Medications: Current Medications Acetaminophen (Acetaminophen 325 Mg Tablet) 650 mg PO Q6H PRN PRN Reason: Pain, Mild 1-3,fever,headache Benzonatate (Benzonatate 100 Mg Capsule) 100 mg PO TID PRN PRN Reason: Cough Calcium Carbonate (Calcium Carbonate 750 Mg Tab.Chew) 750 mg PO Q4H PRN PRN Reason: Heartburn Ceftriaxone Sodium (Ceftriaxone Sodium 1 Gm Vial) 1 gm IVPUSH Q24H [facility] Dexamethasone Sodium Phosphate (Dexamethasone Sod Phosphate 4 Mg/Ml Vial) 8 mg IVPUSH Q24H [facility] Diphenhydramine HCl (Diphenhydramine Hcl 50 Mg/Ml Vial) 25 mg IVPUSH Q6H PRN PRN Reason: Rash Heparin Sodium (Porcine) (Heparin Sodium,Porcine 5,000 Unit/Ml Vial) 5,000 unit SUBCUT Q8H [facility] Last Admin: 12/14/24 10:36 Dose: Not Given Hydroxyzine HCl (Hydroxyzine Hcl 50 Mg Tablet) 50 mg PO TID PRN PRN Reason: anxiety Dextrose/Sodium Chloride (D51/2ns) 1,000 mls @ 100 mls/hr IVCONT .Q10H [facility] Last Admin: 12/14/24 10:36 Dose: Not Given Caspofungin 50 mg/ Sodium (Chloride) 250 mls @ 250 mls/hr IV Q24H [facility] Clindamycin Phosphate (Cleocin) 600 mg in 50 mls @ 100 mls/hr IV Q8H [facility] Lidocaine HCl (Lidocaine Hcl Viscous 2 % 15 Ml Solution) 15 ml MUCOUS MEM Q3H PRN PRN Reason: odynophagia Last Admin: 12/13/24 20:03 Dose: 15 ml Magnesium Hydroxide (Milk Of Magnesia 30 Ml Oral.Susp) 30 ml PO DAILY PRN PRN Reason: Constipation Melatonin (Melatonin 3 Mg Tablet) 6 mg PO BEDTIME PRN PRN Reason: Insomnia Melatonin (Melatonin 3 Mg Tablet) 6 mg PO BEDTIME PRN PRN Reason: Insomnia Morphine Sulfate (Morphine Sulfate 2 Mg/Ml Cartridge) 1 mg IVPUSH Q6H PRN; Protocol PRN Reason: Breakthrough Pain Last Admin: 12/13/24 22:28 Dose: 1 mg Oxcarbazepine (Oxcarbazepine 300 Mg Tablet) 300 mg PO BID [facility] Last Admin: 12/14/24 10:37 Dose: Not Given Pantoprazole Sodium (Pantoprazole Sodium 40 Mg/10 Ml Vial) 40 mg IVPUSH DAILY@0630 [facility] Last Admin: 12/14/24 05:41 Dose: 40 mg Sodium Chloride (0.9 % Sodium Chloride Flush 3 Ml Syringe) 3 ml IVFLUSH QSHIFT [facility] Last Admin: 12/14/24 08:38 Dose: Not Given Sodium Chloride (0.9 % Sodium Chloride Flush 3 Ml Syringe) 3 ml IVFLUSH QSTXFT [facility] Last Admin: 12/14/24 08:38 Dose: Not Given Home Medications ?Medication ?Instructions ?Recorded ?Confirmed ?Last Taken ?Type azelastine 137 mcg (0.1 %) nasal 1 spray intranasal DAILY 12/12/24 12/12/24 Unknown History spray bupropion HCl 300 mg 24 hr tablet, 300 mg PO DAILY 12/12/24 12/12/24 Unknown History extended release hydroxyzine pamoate 50 mg capsule 50 mg PO TID PRN anxiety 12/12/24 12/12/24 Unknown History nystatin 100,000 unit/mL oral 5 ml buccal QID 12/12/24 12/12/24 12/12/24 History suspension oxcarbazepine 300 mg tablet 300 mg PO BID 12/12/24 12/12/24 Unknown History vits no.130-ferrous fum 1 tab PO DAILY 12/12/24 12/12/24 Unknown History 27 mg iron-folic acid 800 mcg tablet ( Vitamin) Physical Exam 2 Vital Signs: Vital Signs: Last Vital Signs Temp 98.0 F 12/14/24 07:35 Pulse 75 12/14/24 07:35 Resp 16 12/14/24 07:35 BP 110/64 12/14/24 07:35 Pulse Ox 99 12/14/24 07:35 O2 Del Method Room Air 12/14/24 07:35 BMI result Body Mass Index 22.4 Const: General: cooperative HEENT: Other: tongue macerated and swollen,dense cervical and posterior occipital lymphadenopathy hoarse voice Ears: hearing grossly normal bilaterally General nose exam: Normal external nose present Face and sinus: Yes normal facial exam Mouth: other (reddened oral membranes) Teeth and gingiva: dentition normal Eyes: General: appearance normal, both eyes and all related structures P upils: Equal, round and reactive pupils present Resp: Effort & Inspection: normal respiratory effort Cardio: Rate: regular rate Rhythm: regular rhythm GI: Palpation (GI): Soft to palpation and nontender : General: Yes no CVA tenderness Back/Spine/Pelvis: Back: no CVA tenderness Skin: Other: reddened raised lesions hands and reddened toes Neuro: General: moves all extremities Cranial nerves: Yes Equal, round and reactive pupils present Extrem: General: Yes normal to inspection Psych: Appearance: grossly normal Results Labs 12/13/24 05:26 12/13/24 05:26 Microbiology Microbiology Results: Microbiology 12/12/24 20:55 Blood - Venous Blood Culture - Preliminary No growth after 24 hours. 12/12/24 20:55 Blood - Venous Blood Culture - Preliminary No growth after 24 hours. Assessment and Plan (1) Dysphagia: Status: Acute (2) Odynophagia: Status: Acute Plan Possible Lemierres disease (fusobacterium) although vessels patent Possible vasculitis/Kawasakis disease Possible endocarditis Doubt fungal esophagitis or allergic reaction due to ly,mphadenopathy. Less likely catscratch disease or toxoplasmosis. Would give IV Clindamycin and either Ceftriaxone and Zosyn. Also can continue Cancidas for now and stop day or two possibly if no thrush seen in mouth. Steroids Consider check toxoplasmosis and catscratch antibodies. No endoscopy at this time.
--- NOTE | 2024-12-14 15:07 | PM.EVENT ---
Event Note Date of Service: 12/14/24 Event Note: check echo evaluate endocaritis Time Spent With Patient Time: Total time managing care of this patient today ____ minutes.
[2024-12-14] MEDS: Lidocaine HCl Viscous 2 % 15 ML SOLUTION MUCOUS MEM ×3 (15:16→23:27)
[2024-12-14] MEDS: Morphine Sulfate 2 MG/ML CARTRIDGE 1 MG IVPUSH ×2 (15:18→23:27)
[2024-12-14] MEDS: dexAMETHasone sod phosphate 4 MG/ML VIAL 8 MG IVPUSH (15:18)
[2024-12-14] MEDS: Clindamycin Phosphate/D5W 600 MG/50 ML PIGGYBACK 100 MG IV ×2 (15:24→22:37)
--- NOTE | 2024-12-14 15:51 | MHC.CM.PN ---
per rounds pt nor medically ready for dc dc pl;an remains home
[2024-12-14 16:00] VITALS: BP 119/74; PULSE 85; RESP 16; TEMP 36.8; O2SAT 99
[2024-12-14] MEDS: Caspofungin Acetate 50 MG in 0.9 % Sodium Chloride 250 ML 250 MG IV (16:10)
[2024-12-14] MEDS: cefTRIAXone sodium 1 GM VIAL IVPUSH (16:10)
[2024-12-14] MEDS: 0.9 % Sodium Chloride Flush 3 ML SYRINGE IVFLUSH (16:13)
--- NOTE | 2024-12-14 17:00 | CA_ITS ---
Transthoracic Echocardiogram Patient (Last, First, Middle): Lisa Doe, Gender: Female Date of : 2000 Age: 24 Procedure Date: 12/14/2024 Procedure Type: Transthoracic Echocardiogram Location: S3E Height: 165.1 cm Weight: 53.07 kg BSA: 1.58 m2 Heart Rate: 76 bpm BP: 110 / 64 mmHg Emergency Management Director: Referring MD: Angy Cristobal MD [employer] Operator Helper: Ranjan Rizzo MD Symptoms: Bacteremia, assess for endocarditis Study Quality: Adequate ECG Rhythm: Sinus Conclusions: - Essentially normal study with no obvious vegetation seen on this study Findings Left Ventricle Normal left ventricular size, thickness, and systolic function. The visually estimated ejection fraction is between 60-65%. Spectral Doppler is indicative of a normal filling pattern. Right Ventricle Normal right ventricular cavity size and systolic function. Atria Both atria are normal in size. There is no evidence of interatrial shunt. Aortic Valve Normal aortic valve structure and function. There is no aortic valve stenosis. There is no aortic valve regurgitation. Mitral Valve Normal mitral valve structure and function. There is trace mitral valve regurgitation. There is no mitral valve stenosis. Pulmonic Valve The pulmonic valve is likely normal. Tricuspid Valve Normal tricuspid valve structure. There is trace tricuspid valve regurgitation. The right ventricular systolic pressure is normal. The right ventricular systolic pressure is 29 mmHg. Normal right atrial pressure. There is no evidence of pulmonary hypertension. Great Vessels All visible segments of the aorta are normal in size. The pulmonary artery was not well visualized. Venous The inferior vena cava is normal in size and collapses greater than 50% with inspiration. Pericardium/Pleural There is no evidence of pericardial effusion. Prior Study Comparison No prior study available for comparison. Recommendations, Care & Conclusions Consider a AURY if clinically appropriate. Measurements 2D Linear Measurements IVSd: 0.73 0.6-0.9/0.6-1.0 cm LVIDd: 4.28 3.9-5.3/4.2-5.9 cm LVIDd Index: 2.71 2.4-3.2/2.2-3.1 cm/m2 LVIDs: 2.81 2.0-3.6 cm LVPWd: 0.75 0.7-1.1 cm LA Diam: 2.90 2.7-3.8/3.0-4.0 cm LAIDs Index: 1.84 1.5-2.3 cm/m2 LV Mass: 116.59 67-162/88-224 g LV Mass Index: 73.79 43-95/49-115 g/m2 LVOT Diam: 1.90 3.0+(-)1.3 cm Mitral Valve MV Pk E: 0.95 MV PK A: 0.76 MV Decel Time: 236.00 E/A: 1.20 E'Lateral: 17.40 E'Medial: 10.30 E/E' Med: 9.20 E/E' Lat: 5.50 PHT: 69.00 MVA PHT: 3.19 Decel [place]: 4.03 Aortic Valve AoV Pk Tim: 1.40 AoV Pk Grad: 8.00 PAYAM: 1.81 LVOT LVOT Pk Tim: 0.89 LVOT Mn Tim: 0.56 LVOT VTI: 0.18 LVOT Pk Grad: 3.00 LVOT Mn Grad: 2.00 LVOT Diam: 1.90 LVOT Area: 2.84 Diastolic Function MV Pk E: 0.95 MV Pk A: 0.76 E/A: 1.20 E'Medial: 10.30 E/E' Med: 9.20 E' Laterial: 17.40 E/E' Lat: 5.50 Right Ventricle TAPSE (mm): 26.10 Tricuspid Valve TR Pk Tim: 2.28 TR Pk Grad: 21.00 RA Press: 8.00 RVSP: 29.00 Great Vessels Aorta Sinus of Valsalva: 2.60 2.0-3.5 cm Pulmonary Valve PV Pk Tim: 1.09 Peak PV Grad: 5.00 Updated in Other Vendor System with Status of Final Ranjan Rizzo MD electronically signed on 12/14/2024 4:49:44 PM with status of Final
[2024-12-14] MEDS: Heparin Sodium,Porcine 5,000 UNIT/ML VIAL 5000 UNIT SUBCUT (18:29)
[2024-12-14 19:55] VITALS: BP 107/69; PULSE 71; RESP 18; TEMP 36.9; O2SAT 99
[2024-12-14 23:14] VITALS: BP 107/64; PULSE 73; RESP 18; TEMP 37.4; O2SAT 100
[2024-12-15] MEDS: Dextrose 5 % and 0.45 % NaCl 1,000 ML 100 ML IVCONT (01:40)
[2024-12-15] MEDS: 0.9 % Sodium Chloride Flush 3 ML SYRINGE IVFLUSH ×3 (01:40→22:30)
[2024-12-15] MEDS: Heparin Sodium,Porcine 5,000 UNIT/ML VIAL 5000 UNIT SUBCUT ×3 (01:43→17:54)
[2024-12-15 03:09] VITALS: BP 110/70; PULSE 62; RESP 18; TEMP 36.8; O2SAT 100
[2024-12-15] MEDS: Morphine Sulfate 2 MG/ML CARTRIDGE 1 MG IVPUSH ×3 (05:56→20:18)
[2024-12-15] MEDS: Pantoprazole Sodium 40 MG/10 ML VIAL IVPUSH (06:06)
[2024-12-15] MEDS: Clindamycin Phosphate/D5W 600 MG/50 ML PIGGYBACK 100 MG IV ×3 (06:14→22:26)
[2024-12-15 07:38] VITALS: BP 99/57; PULSE 69; RESP 16; TEMP 36.6; O2SAT 98
[2024-12-15 08:37] LABS: Hematocrit 31.2 % (37.0-47.0); Hemoglobin 11.2 g/dl (12.0-16.0); Mean Corpuscular HGB Conc 35.9 g/dl (31.0-35.0); Mean Corpuscular Hemoglobin 32.5 pg (27.0-33.0); Mean Corpuscular Volume 90.4 fL (80.0-98.0); Mean Platelet Volume 10.2 fL (9.4-12.3); Platelet Count 165 X10*3/uL (160-400); Red Blood Count 3.45 X10*6/uL (4.20-5.50); Red Cell Distribution Width 11.9 % (11.0-16.0); White Blood Count 8.4 X10*3/uL (4.8-10.8)
[2024-12-15 08:49] LABS: C Reactive Protein 0.32 mg/dL (< or = 0.50)
[2024-12-15 09:23] LABS: Erythrocyte Sedimentation Rate 9 MM/HR (0-20)
[2024-12-15 11:59] VITALS: BP 104/66; PULSE 72; RESP 16; TEMP 36.3; O2SAT 98
--- NOTE | 2024-12-15 12:55 | HO.PM.IMPN ---
Subjective Subjective Date of Service: 12/15/24 Interval History: c/o difficulty swallowing erosions of gums + tongue swelling of fingers/toes Review of Systems Review of Systems: Yes all other systems are reviewed and are negative Physical Exam Vital Signs: Vital Signs: Last Vital Signs Temp 97.3 F 12/15/24 11:59 Pulse 72 12/15/24 11:59 Resp 16 12/15/24 11:59 BP 104/66 12/15/24 11:59 Pulse Ox 98 12/15/24 11:59 O2 Del Method Room Air 12/15/24 11:59 BMI result Body Mass Index 22.4 Gen: in no acute distress HEENT: sclera anicteric, moist mucus membranes, no apparent thrush but has multiple erosions of gums + tongue Neck: supple, L anterior cervical lymphadenopathy Lungs: clear to auscultation bilaterally Heart: regular rate and rhythm, no murmurs Abd: soft, non-tender, non-distended Ext: no edema, multiple toes and fingers with dactylitis Skin: warm/well-perfused Neuro: alert and oriented x3, no focal findings Psych: appropriate affect Objective Data Active Medications Acetaminophen (Acetaminophen 325 Mg Tablet) 650 mg PO Q6H PRN PRN Reason: Pain, Mild 1-3,fever,headache Benzonatate (Benzonatate 100 Mg Capsule) 100 mg PO TID PRN PRN Reason: Cough Calcium Carbonate (Calcium Carbonate 750 Mg Tab.Chew) 750 mg PO Q4H PRN PRN Reason: Heartburn Ceftriaxone Sodium (Ceftriaxone Sodium 1 Gm Vial) 1 gm IVPUSH Q24H [facility] Last Admin: 12/14/24 16:10 Dose: 1 gm Documented By: MICKEY Dexamethasone Sodium Phosphate (Dexamethasone Sod Phosphate 4 Mg/Ml Vial) 8 mg IVPUSH Q24H [facility] Last Admin: 12/14/24 15:18 Dose: 8 mg Documented By: MICKEY Diphenhydramine HCl (Diphenhydramine Hcl 50 Mg/Ml Vial) 25 mg IVPUSH Q6H PRN PRN Reason: Rash Heparin Sodium (Porcine) (Heparin Sodium,Porcine 5,000 Unit/Ml Vial) 5,000 unit SUBCUT Q8H [facility] Last Admin: 12/15/24 10:17 Dose: 5,000 unit Documented By: SHERIE Hydroxyzine HCl (Hydroxyzine Hcl 50 Mg Tablet) 50 mg PO TID PRN PRN Reason: anxiety Caspofungin 50 mg/ Sodium (Chloride) 250 mls @ 250 mls/hr IV Q24H [facility] Last Infusion: 12/14/24 18:23 Dose: Infused Documented By: MICKEY Clindamycin Phosphate (Cleocin) 600 mg in 50 mls @ 100 mls/hr IV Q8H [facility] Last Infusion: 12/15/24 07:03 Dose: Infused Documented By: SHERIE Lidocaine HCl (Lidocaine Hcl Viscous 2 % 15 Ml Solution) 15 ml MUCOUS MEM Q3H PRN PRN Reason: odynophagia Last Admin: 12/14/24 23:27 Dose: 15 ml Documented By: EDU Magnesium Hydroxide (Milk Of Magnesia 30 Ml Oral.Susp) 30 ml PO DAILY PRN PRN Reason: Constipation Melatonin (Melatonin 3 Mg Tablet) 6 mg PO BEDTIME PRN PRN Reason: Insomnia Melatonin (Melatonin 3 Mg Tablet) 6 mg PO BEDTIME PRN PRN Reason: Insomnia Morphine Sulfate (Morphine Sulfate 2 Mg/Ml Cartridge) 1 mg IVPUSH Q6H PRN; Protocol PRN Reason: Breakthrough Pain Last Admin: 12/15/24 05:56 Dose: 1 mg Documented By: CARLIE Oxcarbazepine (Oxcarbazepine 300 Mg Tablet) 300 mg PO BID [facility] Last Admin: 12/15/24 08:38 Dose: Not Given Documented By: SHERIE Non-Admin Reason: pt unable to swallow Pantoprazole Sodium (Pantoprazole Sodium 40 Mg/10 Ml Vial) 40 mg IVPUSH DAILY@0630 [facility] Last Admin: 12/15/24 06:06 Dose: 40 mg Documented By: CARLIE Sodium Chloride (0.9 % Sodium Chloride Flush 3 Ml Syringe) [facility] [place] Last Admin: 12/15/24 07:09 Dose: Not Given Documented By: SHERIE Non-Admin Reason: IV Running Sodium Chloride (0.9 % Sodium Chloride Flush 3 Ml Syringe) 3 [facility] [place] Last Admin: 12/15/24 07:09 Dose: Not Given Documented By: SHERIE Non-Admin Reason: IV Running Labs 12/15/24 08:26 12/13/24 05:26 Labs: Laboratory Results - last 24 hr 12/15/24 08:26 MCV 90.4 MCH 32.5 MCHC 35.9 H RDW 11.9 Plt Count 165 MPV 10.2 Absolute Nucleated RBC 0.000 Nucleated RBC % (auto) 0.0 ESR 9 C-Reactive Protein 0.32 Microbiology Microbiology Results: Microbiology 12/12/24 20:55 Blood Culture - Preliminary Blood - Venous No growth after 48 hours. 12/12/24 20:55 Blood Culture - Preliminary Blood - Venous No growth after 48 hours. Assessment and Plan (1) Odynophagia: Status: Acute (2) Dysphagia: Status: Acute Plan d4 for 24yo F with anxiety/depression presenting with throat pain after taking fluconazole for candidal vaginitis; seen in [facility] ED and thought to have allergy to fluconazole; presenting here with tongue swelling, rash on upper chest; whitish discoloration on inside of cheek; and odynophagia - HIV negative, RPR negative - ID following; on caspofungin 12/13-, ceftriaxone + clindamycin 12/14-; Bartonella + Toxoplasma pending - dexamethasone 12/14- - CT neck with no acute findings though I palpate lymph nodes in the left anterior cervical chain; will check US - C1 esterase inhibitor, C1 esterase protein, C4 level pending - GI consulted; plan EGD once tongue swelling improves; candidaisis vs SJS? mood disorder - oxcarbazepine VTE ppx - enoxaparin dispo - eventual home In my clinical judgment, the patient requires continued inpatient hospitalization for the following reasons: IV antibiotics/antifungal Total time managing care of this patient today: 45 minutes. Quality Stroke Does the patient have a stroke diagnosis?: No VTE Prior VTE?: No VTE Risk Level:: Medical - moderate - high VTE Device Contraindication: N/A - Device Ordered VTE Drug Contraindication: N/A - Med Ordered
[2024-12-15] MEDS: Lidocaine HCl Viscous 2 % 15 ML SOLUTION MUCOUS MEM ×2 (13:35→17:54)
[2024-12-15 13:59] LABS: Lactate Dehydrogenase 111 U/L (122-220)
[2024-12-15 14:55] VITALS: BP 110/70; PULSE 73; RESP 18; TEMP 36.6; O2SAT 98
[2024-12-15] MEDS: dexAMETHasone sod phosphate 4 MG/ML VIAL 8 MG IVPUSH (15:51)
[2024-12-15] MEDS: cefTRIAXone sodium 1 GM VIAL IVPUSH (15:52)
[2024-12-15] MEDS: Caspofungin Acetate 50 MG in 0.9 % Sodium Chloride 250 ML 250 MG IV (16:54)
[2024-12-15 19:15] VITALS: BP 100/68; PULSE 72; RESP 18; TEMP 36.4; O2SAT 99
[2024-12-15] MEDS: ondansetron HCL 4 MG/2 ML VIAL IVPUSH (20:45)
[2024-12-15 23:35] VITALS: BP 101/61; PULSE 60; RESP 16; TEMP 37.2; O2SAT 99
--- NOTE | 2024-12-15 23:53 | PC.NURSE ---
Morphine given, it scanned and while hitting saved my computer logged me out apparently not saving tranaction.
[2024-12-16] MEDS: Heparin Sodium,Porcine 5,000 UNIT/ML VIAL 5000 UNIT SUBCUT ×3 (02:20→17:38)
[2024-12-16 03:58] VITALS: BP 100/56; PULSE 69; RESP 18; TEMP 37.4; O2SAT 99
[2024-12-16] MEDS: Morphine Sulfate 2 MG/ML CARTRIDGE 1 MG IVPUSH ×3 (06:07→21:00)
[2024-12-16] MEDS: Pantoprazole Sodium 40 MG/10 ML VIAL IVPUSH (06:07)
[2024-12-16] MEDS: Clindamycin Phosphate/D5W 600 MG/50 ML PIGGYBACK 100 MG IV ×3 (07:20→22:51)
[2024-12-16 07:31] VITALS: BP 102/60; PULSE 61; RESP 16; TEMP 36.9; O2SAT 99
--- NOTE | 2024-12-16 09:41 | P.PNIM_ITS ---
Subjective Subjective Date of Service: 12/16/24 Interval History: still with severe odynophagia, on pureed diet tongue swelling improved finger/toe swelling improved Review of Systems Review of Systems: Yes all other systems are reviewed and are negative Physical Exam 2 Vital Signs: Vital Signs: Last Vital Signs Temp 98.4 F 12/16/24 07:31 Pulse 61 12/16/24 07:31 Resp 16 12/16/24 07:31 BP 102/60 12/16/24 07:31 Pulse Ox 99 12/16/24 07:31 O2 Del Method Room Air 12/16/24 07:31 BMI result Body Mass Index 22.4 Gen: in no acute distress HEENT: sclera anicteric, moist mucus membranes, no apparent thrush but has multiple erosions of gums + tongue Neck: supple, L anterior cervical lymphadenopathy Lungs: clear to auscultation bilaterally Heart: regular rate and rhythm, no murmurs Abd: soft, non-tender, non-distended Ext: no edema, multiple toes and fingers with dactylitis improved since yesterday Skin: warm/well-perfused Neuro: alert and oriented x3, no focal findings Psych: appropriate affect Objective Data Active Medications Acetaminophen (Acetaminophen 325 Mg Tablet) 650 mg PO Q6H PRN PRN Reason: Pain, Mild 1-3,fever,headache Benzonatate (Benzonatate 100 Mg Capsule) 100 mg PO TID PRN PRN Reason: Cough Calcium Carbonate (Calcium Carbonate 750 Mg Tab.Chew) 750 mg PO Q4H PRN PRN Reason: Heartburn Ceftriaxone Sodium (Ceftriaxone Sodium 1 Gm Vial) 1 gm IVPUSH Q24H [facility] Last Admin: 12/15/24 15:52 Dose: 1 gm Documented By: FATUMA Dexamethasone Sodium Phosphate (Dexamethasone Sod Phosphate 4 Mg/Ml Vial) 8 mg IVPUSH Q24H [facility] Last Admin: 12/15/24 15:51 Dose: 8 mg Documented By: FATUMA Diphenhydramine HCl (Diphenhydramine Hcl 50 Mg/Ml Vial) 25 mg IVPUSH Q6H PRN PRN Reason: Rash Heparin Sodium (Porcine) (Heparin Sodium,Porcine 5,000 Unit/Ml Vial) 5,000 unit SUBCUT Q8H [facility] Last Admin: 12/16/24 02:20 Dose: 5,000 unit Documented By: HO.PETERR Hydroxyzine HCl (Hydroxyzine Hcl 50 Mg Tablet) 50 mg PO TID PRN PRN Reason: anxiety Caspofungin 50 mg/ Sodium (Chloride) 250 mls @ 250 mls/hr IV Q24H [facility] Last Infusion: 12/15/24 17:57 Dose: Infused Documented By: FATUMA Clindamycin Phosphate (Cleocin) 600 mg in 50 mls @ 100 mls/hr IV Q8H [facility] Last Infusion: 12/16/24 07:54 Dose: Infused Documented By: SHERIE Lidocaine HCl (Lidocaine Hcl Viscous 2 % 15 Ml Solution) 15 ml MUCOUS MEM Q3H PRN PRN Reason: odynophagia Last Admin: 12/15/24 17:54 Dose: 15 ml Documented By: FATUMA Magnesium Hydroxide (Milk Of Magnesia 30 Ml Oral.Susp) 30 ml PO DAILY PRN PRN Reason: Constipation Melatonin (Melatonin 3 Mg Tablet) 6 mg PO BEDTIME PRN PRN Reason: Insomnia Melatonin (Melatonin 3 Mg Tablet) 6 mg PO BEDTIME PRN PRN Reason: Insomnia Morphine Sulfate (Morphine Sulfate 2 Mg/Ml Cartridge) 1 mg IVPUSH Q6H PRN; Protocol PRN Reason: Breakthrough Pain Last Admin: 12/16/24 06:07 Dose: 1 mg Documented By: CARLIE Oxcarbazepine (Oxcarbazepine 300 Mg Tablet) 300 mg PO BID [facility] Last Admin: 12/16/24 07:11 Dose: Not Given Documented By: SHERIE Non-Admin Reason: pt unable to swallow Sodium Chloride (0.9 % Sodium Chloride Flush 3 Ml Syringe) 3 ml IVFLUSH [facility] Last Admin: 12/16/24 07:11 Dose: Not Given Documented By: SHERIE Non-Admin Reason: IV Running Sodium Chloride (0.9 % Sodium Chloride Flush 3 Ml Syringe) 3 ml IVFLUSH QSWAFT [facility] Last Admin: 12/16/24 07:11 Dose: Not Given Documented By: SHERIE Non-Admin Reason: IV Running Labs 12/15/24 08:26 12/13/24 05:26 Labs: Laboratory Results - last 24 hr 12/15/24 08:26 Lactate Dehydrogenase 111 L Assessment and Plan (1) Odynophagia: Status: Acute (2) Dysphagia: Status: Acute Plan d5 for 24yo F with anxiety/depression presenting with throat pain after taking fluconazole for candidal vaginitis; seen in [facility] ED and thought to have allergy to fluconazole; presenting here with tongue swelling, rash on upper chest; whitish discoloration on inside of cheek; and odynophagia - HIV negative, RPR negative - ID following; on caspofungin 12/13-, ceftriaxone + clindamycin 12/14-; Bartonella + Toxoplasma pending - dexamethasone 12/14- - CT neck with no acute findings though now there are palpable lymph nodes in the left anterior cervical chain; US read pending - C1 esterase inhibitor, C1 esterase protein, C4 level pending; will also send C3, CH50 - GI consulted; plan EGD once tongue swelling improves - ?candidaisis vs SJS vs serum sickness vs other vasculitis/rheumatic process - NDD1 [puree] solids for now ' mood disorder - oxcarbazepine VTE ppx - enoxaparin dispo - eventual home In my clinical judgment, the patient requires continued inpatient hospitalization for the following reasons: IV antibiotics/antifungal, EGD Total time managing care of this patient today: 35 minutes. Quality Stroke Does the patient have a stroke diagnosis?: No VTE Prior VTE?: No VTE Risk Level:: Medical - moderate - high VTE Device Contraindication: N/A - Device Ordered VTE Drug Contraindication: N/A - Med Ordered
[2024-12-16] MEDS: ondansetron HCL 4 MG/2 ML VIAL IVPUSH ×2 (10:54→17:41)
[2024-12-16] MEDS: Dextrose 5 % and 0.45 % NaCl 1,000 ML 100 ML IVCONT ×2 (10:56→21:00)
[2024-12-16 11:53] VITALS: BP 110/71; PULSE 70; RESP 16; TEMP 37; O2SAT 99
[2024-12-16] MEDS: dexAMETHasone sod phosphate 4 MG/ML VIAL 8 MG IVPUSH (14:11)
[2024-12-16] MEDS: cefTRIAXone sodium 1 GM VIAL IVPUSH (14:52)
[2024-12-16] MEDS: Caspofungin Acetate 50 MG in 0.9 % Sodium Chloride 250 ML 250 MG IV (15:00)
[2024-12-16 15:23] VITALS: BP 104/63; PULSE 67; RESP 16; TEMP 36.8; O2SAT 98
[2024-12-16 19:23] VITALS: BP 103/59; PULSE 63; RESP 18; TEMP 36.9; O2SAT 97
[2024-12-16 23:29] VITALS: BP 107/61; PULSE 67; RESP 18; TEMP 36.9; O2SAT 97
[2024-12-16] MEDS: 0.9 % Sodium Chloride Flush 3 ML SYRINGE IVFLUSH (23:39)
[2024-12-17] VITALS (10 sets, daily range): BP systolic 97–122; BP diastolic 52–83; PULSE 62–73; RESP 14–20; TEMP 36.2–37.7; O2SAT 97–100
[2024-12-17] MEDS: Dextrose 5 % and 0.45 % NaCl 1,000 ML 100 ML IVCONT ×3 (00:26→23:21)
[2024-12-17] MEDS: ondansetron HCL 4 MG/2 ML VIAL IVPUSH ×4 (00:30→21:04)
[2024-12-17] MEDS: Heparin Sodium,Porcine 5,000 UNIT/ML VIAL 5000 UNIT SUBCUT ×2 (03:11→17:41)
[2024-12-17] MEDS: Morphine Sulfate 2 MG/ML CARTRIDGE 1 MG IVPUSH ×3 (03:24→19:59)
--- NOTE | 2024-12-17 06:31 | PC.NURSE ---
Patient reported constipation as well as a smear of blood upon wiping without stool. denies history of haemorrhoids, agreed to report any further bleeding.
[2024-12-17] MEDS: Clindamycin Phosphate/D5W 600 MG/50 ML PIGGYBACK 100 MG IV ×3 (08:58→23:20)
[2024-12-17] MEDS: 0.9 % Sodium Chloride Flush 3 ML SYRINGE IVFLUSH ×4 (08:59→16:09)
--- NOTE | 2024-12-17 13:43 | MHC.SLORD ---
Speech Language Pathology Order Status: Pt at EGD, RN consulted, noted tongue swelling has subsided mildly. BEE RANCHER continues to follow in assessing PO tolerance.
--- NOTE | 2024-12-17 14:04 | MHC.SHP ---
Pre-Procedural Eval Section A - 24 Hr Update-Section A only Date of Service: 12/17/24 The patient is an INPATIENT: Yes Changes since office visit: Yes New Medical Problems, Yes Changes in Medication and Yes Patient answered all questions; No Cold of Flu in the past 2 weeks The patient has been examined within 24 hours of the surgical procedure. The History & Physical has been completed within 30 days and I have reviewed it.: Yes Section B - Complete if H&P > 30 days Chief Complaint: Oral Thrush Allergies: Allergies Allergy/AdvReac Type Severity Reaction Status Date / Time Fluconazole Allergy Intermediate Rash Uncoded 12/13/24 02:23 Plan Diagnosis/Plan: Unchanged I have reviewed the history and physical and performed a pertinent physical examination on my patient. No changes have occurred unless specified. Time Spent With Patient Time: Total time managing care of this patient today ____ minutes.
--- NOTE | 2024-12-17 14:06 | HO.ANESPROP2 ---
[facility] Active Problems Active Problems: All Active Problems Dysphagia (Acute) Odynophagia (Acute) Oropharyngeal candidiasis (Acute) Nausea and vomiting (Acute) Epigastric pain (Acute) Abnormal CT of liver (Acute) Hepatomegaly (Acute) Depression (Acute) PTSD (post-traumatic stress disorder) (Acute) Anxiety (Acute) HSV (herpes simplex virus) infection (Acute) Past Medical History Medical History No known health problems Cognitive capacity: qqqqq Functional capacity: bed bound Family History Family History Maternal Grandfather Diabetes HTN (hypertension) Maternal Grandmother HTN (hypertension) Mother Cancer Surgical History Surgical History History of esophagogastroduodenoscopy (EGD) History of Problems with Anesthesia: No Social History Social History Household Members: Family Housing: House Are you a primary nursing care partner to a significant other at home: No Do you presently have visiting nurse or other home services: No Patient Tobacco Use Status: Never used Tobacco Substance Use Type: Marijuana service: No Meds Allergies Allergy/AdvReac Type Severity Reaction Status Date / Time Fluconazole Allergy Intermediate Rash Uncoded 12/13/24 02:23 Active Medications: Current Medications Acetaminophen (Acetaminophen 325 Mg Tablet) 650 mg PO Q6H PRN PRN Reason: Pain, Mild 1-3,fever,headache Benzonatate (Benzonatate 100 Mg Capsule) 100 mg PO TID PRN PRN Reason: Cough Calcium Carbonate (Calcium Carbonate 750 Mg Tab.Chew) 750 mg PO Q4H PRN PRN Reason: Heartburn Ceftriaxone Sodium (Ceftriaxone Sodium 1 Gm Vial) 1 gm IVPUSH Q24H [facility] Last Admin: 12/16/24 14:52 Dose: 1 gm Dexamethasone Sodium Phosphate (Dexamethasone Sod Phosphate 4 Mg/Ml Vial) 8 mg IVPUSH Q24H [facility] Last Admin: 12/16/24 14:11 Dose: 8 mg Diphenhydramine HCl (Diphenhydramine Hcl 50 Mg/Ml Vial) 25 mg IVPUSH Q6H PRN PRN Reason: Rash Heparin Sodium (Porcine) (Heparin Sodium,Porcine 5,000 Unit/Ml Vial) 5,000 unit SUBCUT Q8H [facility] Last Admin: 12/17/24 09:08 Dose: Not Given Hydroxyzine HCl (Hydroxyzine Hcl 50 Mg Tablet) 50 mg PO TID PRN PRN Reason: anxiety Caspofungin 50 mg/ Sodium (Chloride) 250 mls @ 250 mls/hr IV Q24H [facility] Last Infusion: 12/16/24 16:04 Dose: Infused Clindamycin Phosphate (Cleocin) 600 mg in 50 mls @ 100 mls/hr IV Q8H [facility] Last Infusion: 12/17/24 09:30 Dose: Infused Dextrose/Sodium Chloride (D51/2ns) 1,000 mls @ 100 mls/hr IVCONT .Q10H [facility] Last Admin: 12/17/24 10:33 Dose: 100 mls/hr Lidocaine HCl (Lidocaine Hcl Viscous 2 % 15 Ml Solution) 15 ml MUCOUS MEM Q3H PRN PRN Reason: odynophagia Last Admin: 12/15/24 17:54 Dose: 15 ml Magnesium Hydroxide (Milk Of Magnesia 30 Ml Oral.Susp) 30 ml PO DAILY PRN PRN Reason: Constipation Melatonin (Melatonin 3 Mg Tablet) 6 mg PO BEDTIME PRN PRN Reason: Insomnia Melatonin (Melatonin 3 Mg Tablet) 6 mg PO BEDTIME PRN PRN Reason: Insomnia Morphine Sulfate (Morphine Sulfate 2 Mg/Ml Cartridge) 1 mg IVPUSH Q6H PRN; Protocol PRN Reason: Breakthrough Pain Last Admin: 12/17/24 09:23 Dose: 1 mg Ondansetron HCl (Ondansetron Hcl 4 Mg/2 Ml Vial) 4 mg IVPUSH Q4H PRN PRN Reason: Nausea and Vomiting Last Admin: 12/17/24 09:21 Dose: 4 mg Oxcarbazepine (Oxcarbazepine 300 Mg Tablet) 300 mg PO BID [facility] Last Admin: 12/17/24 09:10 Dose: Not Given Sodium Chloride (0.9 % Sodium Chloride Flush 3 Ml Syringe) [facility] Last Admin: 12/17/24 09:05 Dose: 3 ml Sodium Chloride (0.9 % Sodium Chloride Flush 3 Ml Syringe) [facility] Last Admin: 12/17/24 09:07 Dose: 3 ml Home Medications ?Medication ?Instructions ?Recorded ?Confirmed ?Last Taken ?Type azelastine 137 mcg (0.1 %) nasal 1 spray intranasal DAILY 12/12/24 12/12/24 Unknown History spray bupropion HCl 300 mg 24 hr tablet, 300 mg PO DAILY 12/12/24 12/12/24 Unknown History extended release hydroxyzine pamoate 50 mg capsule 50 mg PO TID PRN anxiety 12/12/24 12/12/24 Unknown History nystatin 100,000 unit/mL oral 5 ml buccal QID 12/12/24 12/12/24 12/12/24 History suspension oxcarbazepine 300 mg tablet 300 mg PO BID 12/12/24 12/12/24 Unknown History vits no.130-ferrous fum 1 tab PO DAILY 12/12/24 12/12/24 Unknown History 27 mg iron-folic acid 800 mcg tablet ( Vitamin) Exam Height,Weight and Vital Signs: Height 5 ft 5 in Weight 61.1 kg Last Vital Signs Temp 98.9 F 12/17/24 13:36 Pulse 63 12/17/24 13:36 Resp 14 12/17/24 13:36 BP 114/78 12/17/24 13:36 Pulse Ox 100 12/17/24 13:36 O2 Del Method Room Air 12/17/24 13:36 Pertinent Lab Results Pertinent Lab Results: Laboratory Tests 12/12/24 12/13/24 12/14/24 20:34 05:26 10:39 WBC 10.8 7.5 RBC 4.35 3.76 L Hgb 14.3 12.1 Hct 39.8 34.2 L MCV 91.5 91.0 MCH 32.9 32.2 MCHC 35.9 H 35.4 H RDW 12.6 12.3 Plt Count 184 167 MPV 10.3 10.6 Immature Gran % (Auto) 0.3 0.3 Neut % (Auto) 77.0 H 59.5 Lymph % (Auto) 14.9 L 29.5 [place] % (Auto) 6.0 8.2 Eos % (Auto) 1.2 2.0 Baso % (Auto) 0.6 0.5 Lymph # (Auto) 1.6 2.2 [place] # (Auto) 0.7 0.6 Eos # (Auto) 0.1 0.2 Baso # (Auto) 0.1 0.0 Abs Immat Gran (auto) 0.03 0.02 Absolute Neuts (auto) 8.4 H 4.5 Absolute Nucleated RBC 0.000 0.000 Nucleated RBC % (auto) 0.0 0.0 ESR Sodium 140 138 Potassium 4.1 3.5 Chloride 110 H 110 H Carbon Dioxide 19 L 20 L Anion Gap 15 12 BUN 13 10 Creatinine 0.66 0.61 Estim Creat Clear Calc 111.6 120.8 Estimated GFR > 60 > 60 Random Glucose 72 81 Lactic Acid 1.4 Calcium 9.6 8.7 D Total Bilirubin 0.7 AST 22 ALT 13 Alkaline Phosphatase 48 Lactate Dehydrogenase C-Reactive Protein 1.75 H Total Protein 8.1 H Albumin 4.7 Beta HCG, Quant < 2 Complement C4 36 HIV 1&2 Ab/P24 Ag 4thGn Nonreactive 12/15/24 08:26 WBC 8.4 RBC 3.45 L Hgb 11.2 L Hct 31.2 L MCV 90.4 MCH 32.5 MCHC 35.9 H RDW 11.9 Plt Count 165 MPV 10.2 Immature Gran % (Auto) Neut % (Auto) Lymph % (Auto) [place] % (Auto) Eos % (Auto) Baso % (Auto) Lymph # (Auto) [place] # (Auto) Eos # (Auto) Baso # (Auto) Abs Immat Gran (auto) Absolute Neuts (auto) Absolute Nucleated RBC 0.000 Nucleated RBC % (auto) 0.0 ESR 9 Sodium Potassium Chloride Carbon Dioxide Anion Gap BUN Creatinine Estim Creat Clear Calc Estimated GFR Random Glucose Lactic Acid Calcium Total Bilirubin AST ALT Alkaline Phosphatase Lactate Dehydrogenase 111 L C-Reactive Protein 0.32 Total Protein Albumin Beta HCG, Quant Complement C4 HIV 1&2 Ab/P24 Ag 4thGn Airway Mallampati Class: I TM Dist: >3cm Neck ROM: Full Loose/Missing/Broken Teeth: No Heart: RRR Lungs: CTA Assessment and Plan Assessment Anesthesia Assessment: Anesthesia Plan Discussed and Chart Reviewed Final Anesthetic Review History of Problems with Anesthesia: No NPO: Yes ASA Class: II Final Preanesthetic Review: Meds/Allgs Chart Reviewed, Consent Obtained/Reviewed and Anes Risks/Benef Reviewed Patient Risk: Low Procedure Risk: Intermediate Anesthetic Plan Anesthetic Plan: MAC: Disposition: Standard PACU
--- NOTE | 2024-12-17 14:08 | HO.PM.IMPN ---
Subjective Subjective Date of Service: 12/17/24 Interval History: Notes slight increase in swelling this a.m.. Episodes of nausea over the last 24 hours. Tolerating liquids Review of Systems Denies chest pain Denies shortness of breath Denies nausea vomiting diarrhea Denies fever chills Physical Exam Vital Signs: Vital Signs: Last Vital Signs Temp 98.9 F 12/17/24 13:36 Pulse 63 12/17/24 13:36 Resp 14 12/17/24 13:36 BP 114/78 12/17/24 13:36 Pulse Ox 100 12/17/24 13:36 O2 Del Method Room Air 12/17/24 13:36 BMI result Body Mass Index 22.4 Const: Other: Awake alert no acute distress. Handling secretions Resp: Other: Clear to auscultation bilaterally no rales rhonchi or wheezes Cardio: Other: No S4; positive S1-S2; no S3 murmurs rubs or gallops GI: Other: Soft nontender nondistended normoactive bowel sounds Extrem: Other: No edema bilaterally Objective Data Active Medications Acetaminophen (Acetaminophen 325 Mg Tablet) 650 mg PO Q6H PRN PRN Reason: Pain, Mild 1-3,fever,headache Benzonatate (Benzonatate 100 Mg Capsule) 100 mg PO TID PRN PRN Reason: Cough Calcium Carbonate (Calcium Carbonate 750 Mg Tab.Chew) 750 mg PO Q4H PRN PRN Reason: Heartburn Ceftriaxone Sodium (Ceftriaxone Sodium 1 Gm Vial) 1 gm IVPUSH Q24H [facility] Last Admin: 12/16/24 14:52 Dose: 1 gm Documented By: SHERIE Dexamethasone Sodium Phosphate (Dexamethasone Sod Phosphate 4 Mg/Ml Vial) 8 mg IVPUSH Q24H [facility] Last Admin: 12/16/24 14:11 Dose: 8 mg Documented By: SHERIE Diphenhydramine HCl (Diphenhydramine Hcl 50 Mg/Ml Vial) 25 mg IVPUSH Q6H PRN PRN Reason: Rash Heparin Sodium (Porcine) (Heparin Sodium,Porcine 5,000 Unit/Ml Vial) 5,000 unit SUBCUT Q8H [facility] Last Admin: 12/17/24 09:08 Dose: Not Given Documented By: MORRIS Non-Admin Reason: pre-op held per dr. Brantley Hydroxyzine HCl (Hydroxyzine Hcl 50 Mg Tablet) 50 mg PO TID PRN PRN Reason: anxiety Caspofungin 50 mg/ Sodium (Chloride) 250 mls @ 250 mls/hr IV Q24H [facility] Last Infusion: 12/16/24 16:04 Dose: Infused Documented By: SHERIE Clindamycin Phosphate (Cleocin) 600 mg in 50 mls @ 100 mls/hr IV Q8H [facility] Last Infusion: 12/17/24 09:30 Dose: Infused Documented By: MORRIS Dextrose/Sodium Chloride (D51/2ns) 1,000 mls @ 100 mls/hr IVCONT .Q10H [facility] Last Admin: 12/17/24 10:33 Dose: 100 mls/hr Documented By: MORRIS Lidocaine HCl (Lidocaine Hcl Viscous 2 % 15 Ml Solution) 15 ml MUCOUS MEM Q3H PRN PRN Reason: odynophagia Last Admin: 12/15/24 17:54 Dose: 15 ml Documented By: FATUMA Magnesium Hydroxide (Milk Of Magnesia 30 Ml Oral.Susp) 30 ml PO DAILY PRN PRN Reason: Constipation Melatonin (Melatonin 3 Mg Tablet) 6 mg PO BEDTIME PRN PRN Reason: Insomnia Melatonin (Melatonin 3 Mg Tablet) 6 mg PO BEDTIME PRN PRN Reason: Insomnia Morphine Sulfate (Morphine Sulfate 2 Mg/Ml Cartridge) 1 mg IVPUSH Q6H PRN; Protocol PRN Reason: Breakthrough Pain Last Admin: 12/17/24 09:23 Dose: 1 mg Documented By: MORRIS Ondansetron HCl (Ondansetron Hcl 4 Mg/2 Ml Vial) 4 mg IVPUSH Q4H PRN PRN Reason: Nausea and Vomiting Last Admin: 12/17/24 09:21 Dose: 4 mg Documented By: MORRIS Oxcarbazepine (Oxcarbazepine 300 Mg Tablet) 300 mg PO BID [facility] Last Admin: 12/17/24 09:10 Dose: Not Given Documented By: MORRIS Non-Admin Reason: pt refused ,unable to swallow Sodium Chloride (0.9 % Sodium Chloride Flush 3 Ml Syringe) 3 ml IVFLUSH [facility] Last Admin: 12/17/24 09:05 Dose: 3 ml Documented By: MORRIS Sodium Chloride (0.9 % Sodium Chloride Flush 3 Ml Syringe) 3 ml IVFLUSH [facility] Last Admin: 12/17/24 09:07 Dose: 3 ml Documented By: OLEKSANDRIT Labs 12/15/24 08:26 12/13/24 05:26 Labs: Laboratory Results - last 24 hr 12/14/24 10:39 Complement C4 36 Assessment and Plan (1) Dysphagia: Status: Acute (2) Odynophagia: Status: Acute Plan 24yo F with anxiety/depression presenting with throat pain after taking fluconazole for candidal vaginitis; seen in [facility] ED and thought to have allergy to fluconazole; presenting here with tongue swelling, rash on upper chest; whitish discoloration on inside of cheek; and odynophagia 1.Dysphagia - HIV negative, RPR negative - ID following; on caspofungin 12/13-, ceftriaxone + clindamycin 12/14-; Bartonella + Toxoplasma pending - dexamethasone 12/14- - CT neck with no acute findings. -EGD when clinically appropriate - NDD1 [puree] solids for now ' 2.Mood disorder -stable and well compensated -continue outpatient therapies Lovenox Full Code dispo - eventual home In my clinical judgment, the patient requires continued inpatient hospitalization for the following reasons: IV antibiotics/antifungal, EGD Quality Stroke Does the patient have a stroke diagnosis?: No VTE Prior VTE?: No VTE Risk Level:: Medical - moderate - high VTE Device Contraindication: N/A - Device Ordered VTE Drug Contraindication: N/A - Med Ordered
--- NOTE | 2024-12-17 14:10 | W.PM.OPN ---
Operative Note Operative Note Date of Service: 12/17/24 Narrative: FLEXIBLE TRANSORAL UPPER GASTROINTESTINAL ENDOSCOPY Pre-op diagnosis: Dysphagia, odynophagia Post-op diagnosis: Edema of tongue, harmony-pharynx and arytenoid cartilages, normal EGD Endoscopist:Sd Huitron MD Anesthesia:?MAC UPPER ENDOSCOPY Consent: Indications for the procedure and potential complications of bleeding, perforation, reaction to medications and missed diagnosis were discussed with the patient and informed consent was obtained. Instrument: Olympus GIF H 190 mid size upper endoscope Monitoring: Vital signs and clinical assessment, continuous EKG monitoring, Pulse oximetry, Carbon Dioxide monitoring and blood pressure monitoring were done throughout the procedure. Procedure: The patient was placed in the left lateral decubitis position and pre-procedure medications were administered and a bite block was placed. The endoscope was inserted into the mouth and advanced under direct vision to the third part of duodenum. A careful inspection was made as the upper endoscope was withdrawn including a retroflexed examination of the proximal stomach; Findings and interventions are described below. Findings: Larynx: Normal Esophagus: GE junction at 38 cms. Normal esophageal mucosa without inflammation or exudate Stomach: Normal gastric mucosa Grade 2 flap valve on retroflexed examination of the cardia. Duodenum: Normal bulb and descending duodenum Intervention: None needed Impression and Post Procedure Diagnosis: Endoscopy Findings: ESOPHAGUS: STOMACH: DUODENUM: Odynophagia likely due to edema of the tongue and harmony-pharynx No esophageal pathology noted Plan: Pt can resume her previous diet Above findings were reviewed with the patient and relevant handouts were given and the discharge area.
--- NOTE | 2024-12-17 15:40 | MHC.CM.PN ---
per rounds pt not medically ready plan is for home
[2024-12-17] MEDS: Caspofungin Acetate 50 MG in 0.9 % Sodium Chloride 250 ML 250 MG IV (16:08)
[2024-12-17] MEDS: dexAMETHasone sod phosphate 4 MG/ML VIAL 8 MG IVPUSH (16:08)
[2024-12-17] MEDS: cefTRIAXone sodium 1 GM VIAL IVPUSH (17:39)
[2024-12-18] MEDS: Heparin Sodium,Porcine 5,000 UNIT/ML VIAL 5000 UNIT SUBCUT ×3 (01:35→18:34)
[2024-12-18] MEDS: Clindamycin Phosphate/D5W 600 MG/50 ML PIGGYBACK 100 MG IV (06:12)
[2024-12-18 06:58] LABS: MANUAL DIFF FLAG NO
[2024-12-18 07:03] LABS: Basophils Absolute Auto 0.1 X10*3/uL (0.0-0.2); Basophils Percent Auto 0.5 % (0-2); Eosinophils Absolute Auto 0.1 X10*3/uL (0.0-0.4); Eosinophils Percent Auto 1.2 % (0-4); Hematocrit 34.3 % (37.0-47.0); Hemoglobin 12.2 g/dl (12.0-16.0); Imm Gran Abs Auto 0.06 X10*3/uL (0.00-0.03); Imm Gran Pct Auto 0.6 % (0.0-0.4); Lymphocytes Percent Auto 29.2 % (20-40); Mean Corpuscular HGB Conc 35.6 g/dl (31.0-35.0); Mean Corpuscular Hemoglobin 32.4 pg (27.0-33.0); Mean Corpuscular Volume 91.2 fL (80.0-98.0); Mean Platelet Volume 10.5 fL (9.4-12.3); Monocytes Absolute Auto 0.7 X10*3/uL (0.1-1.2); Monocytes Percent Auto 6.4 % (2-11); Neutrophils Absolute Auto 6.3 x10*3/uL (2.0-8.3); Neutrophils Percent Auto 62.1 % (45-73); Platelet Count 186 X10*3/uL (160-400); Red Blood Count 3.76 X10*6/uL (4.20-5.50); Red Cell Distribution Width 12.2 % (11.0-16.0); White Blood Count 10.1 X10*3/uL (4.8-10.8)
[2024-12-18 07:18] VITALS: BP 111/61; PULSE 58; RESP 16; TEMP 37.1; O2SAT 99
[2024-12-18 07:22] LABS: Alanine Aminotransferase 31 U/L (0-31); Albumin Level 3.7 g/dL (3.5-5.0); Alkaline Phosphatase 34 U/L (39-117); Anion Gap 8 (12-20); Aspartate Amino Transferase 29 U/L (5-31); Bilirubin Total 0.2 mg/dL (0.0-1.0); Blood Urea Nitrogen 7 mg/dL (9-16); Calcium 8.6 mg/dL (8.4-10.2); Carbon Dioxide 24 mmol/L (22-29); Chloride 110 mmol/L (96-108); Creatinine Clr Calc Pharmacy 118.5; Estimated Glomerular Filt Rate > 60; Glucose Fasting 117 mg/dL (60-99); Potassium 3.4 mmol/L (3.3-5.1); Sodium 139 mmol/L (135-145); Total Protein 6.1 g/dL (6.5-8.0)
[2024-12-18] MEDS: 0.9 % Sodium Chloride Flush 3 ML SYRINGE IVFLUSH ×3 (08:42→20:59)
--- NOTE | 2024-12-18 09:52 | HO.POSTANES ---
Post Anesthesia Evaluation Post Anesthesia Evaluation Date of Service: 12/18/24 Vital Signs: Vital Signs Temp Pulse Resp BP Pulse Ox O2 Del Method 12/18/24 07:18 98.8 F 58 16 111/61 99 Room Air 12/17/24 23:31 97.1 F 64 16 104/64 97 Room Air Anesthesia: Monitored Mental Status: Awake Pain Control: Satisfactory Nausea/Vomiting: None Hydration: Adequate Anesthesia-Related Issues: No Anes. Related Issues
[2024-12-18 12:00] VITALS: BP 118/72; PULSE 66; RESP 16; TEMP 36.8; O2SAT 99
[2024-12-18] MEDS: Mag&Al/Sim/Diphenhyd/Lidocaine 10 ML ORAL.SUSP PO ×2 (13:15→18:34)
--- NOTE | 2024-12-18 13:21 | MHC.SL.SWA ---
Risk of Aspiration Due to: Poor PO Intake Dysphasia Diet Status: UPGRADE Liquid Consistency and Strategies for Safe Swallow: Liquid Intake Recommendation: Thin Liquid Intake Strategies: Small Sips Solid Food Consistency: Dietary Recommendations: Chopped/Advanced (NDD3) Oral Medication Intake: Crushed with Puree Please contact the pharmacy regarding appropriate crushable or liquid drug formulations that are available whenever modified delivery is recommended. Compensatory Strategies and Precautions to be Taken for Safe Swallow: Sitting Upright (90 deg) Small Bites and Sips Alternate Liquids/Solids Avoid Specific Foods Supervision While Eating and Drinking for Safe Swallow: None Needed Foods to Avoid: Acidic foods Swallowing Recommended Treatments: Compens. Strategy Educat. Recommendation for Speech: Inpatient Speech Therapy Comment: Pt evaluated by PACKING HOUSE SUPERVISOR for swallow on 12/13 by PACKING HOUSE SUPERVISOR. Pt re-evaluated on this date. Recommend UPGRADE to CHOPPED/ADVANCED solids d/t decreased tongue function. Continue with thin liquids. Pt reports loss of taste/sensation in anterior part of tongue as well as swelling in sides & back of tongue, and throat. PACKING HOUSE SUPERVISOR to continue to follow to monitor toleration of diet and upgrade to regular solids. Work Counselor Clinican/Clinical Fellow: Yes Supervisory Statement: I have reviewed and agree with the student/clinical fellow's documentation: N/A Speech Language Pathologist: Gloria Quick M.A., CCC-PACKING HOUSE SUPERVISOR
--- NOTE | 2024-12-18 13:39 | P.PNIM_ITS ---
Subjective Subjective Date of Service: 12/19/24 Interval History: complaining of persistent swollen tongue, loss of taste and sensation anterior part of the tongue, no significant pain, no fevers, no chills, decreased by mouth intake, complaining of purplish discoloration of toes with standing and walking. Review of Systems all other system reviewed and are negative Physical Exam 2 Vital Signs: Vital Signs: Last Vital Signs Temp 98.3 F 12/18/24 12:00 Pulse 66 12/18/24 12:00 Resp 16 12/18/24 12:00 BP 118/72 12/18/24 12:00 Pulse Ox 99 12/18/24 12:00 O2 Del Method Room Air 12/18/24 12:00 O2 Flow Rate 3 12/17/24 14:30 BMI result Body Mass Index 22.4 Const: Other: Gen: in no acute distress HEENT: moist mucus membranes, no apparent thrush , irregular margins with prominent tongue papillae Lungs: clear to auscultation bilaterally Heart: regular rate and rhythm, no murmurs Abd: soft, non-tender, non-distended Ext: no edema, hyperpigmention in between toe webs 2nd and 3rd left toe and 3rd and 4th right toe webs. Skin: warm/well-perfused Neuro: alert and oriented x3, no focal findings Psych: appropriate affect Objective Data Active Medications Acetaminophen (Acetaminophen 325 Mg Tablet) 650 mg PO Q6H PRN PRN Reason: Pain, Mild 1-3,fever,headache Benzonatate (Benzonatate 100 Mg Capsule) 100 mg PO TID PRN PRN Reason: Cough Calcium Carbonate (Calcium Carbonate 750 Mg Tab.Chew) 750 mg PO Q4H PRN PRN Reason: Heartburn Diphenhydramine HCl (Diphenhydramine Hcl 50 Mg/Ml Vial) 25 mg IVPUSH Q6H PRN PRN Reason: Rash Heparin Sodium (Porcine) (Heparin Sodium,Porcine 5,000 Unit/Ml Vial) 5,000 unit SUBCUT Q8H [facility] Last Admin: 12/18/24 09:16 Dose: 5,000 unit Documented By: MORRIS Hydroxyzine HCl (Hydroxyzine Hcl 50 Mg Tablet) 50 mg PO TID PRN PRN Reason: anxiety Lidocaine HCl (Lidocaine Hcl Viscous 2 % 15 Ml Solution) 15 ml MUCOUS MEM Q3H PRN PRN Reason: odynophagia Last Admin: 12/15/24 17:54 Dose: 15 ml Documented By: FATUMA Lidocaine/Diphenhydr/Alum/Mg/Simeth (Mag&Al/Sim/Diphenhyd/Lidocaine 10 Ml Oral.Susp) 10 ml PO Q6H [facility]; Protocol Last Admin: 12/18/24 13:15 Dose: 10 ml Documented By: MORRIS Magnesium Hydroxide (Milk Of Magnesia 30 Ml Oral.Susp) 30 ml PO DAILY PRN PRN Reason: Constipation Melatonin (Melatonin 3 Mg Tablet) 6 mg PO BEDTIME PRN PRN Reason: Insomnia Melatonin (Melatonin 3 Mg Tablet) 6 mg PO BEDTIME PRN PRN Reason: Insomnia Naloxone HCl (Naloxone Hcl 0.4 Mg/Ml Vial) 0.04 mg IVPUSH Q5M PRN PRN Reason: Excessive sedation or RR < 8 Ondansetron HCl (Ondansetron Hcl 4 Mg/2 Ml Vial) 4 mg IVPUSH Q4H PRN PRN Reason: Nausea and Vomiting Last Admin: 12/17/24 21:04 Dose: 4 mg Documented By: ROXANNA Oxcarbazepine (Oxcarbazepine 300 Mg Tablet) 300 mg PO BID [facility] Last Admin: 12/18/24 08:40 Dose: Not Given Documented By: MORRIS Non-Admin Reason: Patient Refused Sodium Chloride (0.9 % Sodium Chloride Flush 3 Ml Syringe) 3 ml IVFLUSH [facility] Last Admin: 12/18/24 08:42 Dose: 3 ml Documented By: MORRIS Sodium Chloride (0.9 % Sodium Chloride Flush 3 Ml Syringe) 3 ml IVFLUSH [facility] Last Admin: 12/18/24 08:42 Dose: Not Given Documented By: MORRIS Non-Admin Reason: Previously Administered Labs 12/18/24 06:45 12/18/24 06:45 Labs: Laboratory Results - last 24 hr 12/18/24 06:45 MCV 91.2 MCH 32.4 MCHC 35.6 H RDW 12.2 Plt Count 186 MPV 10.5 Immature Gran % (Auto) 0.6 H Neut % (Auto) 62.1 Lymph % (Auto) 29.2 [place] % (Auto) 6.4 Eos % (Auto) 1.2 Baso % (Auto) 0.5 Lymph # (Auto) 3.0 [place] # (Auto) 0.7 Eos # (Auto) 0.1 Baso # (Auto) 0.1 Abs Immat Gran (auto) 0.06 H Absolute Neuts (auto) 6.3 Absolute Nucleated RBC 0.000 Nucleated RBC % (auto) 0.0 Anion Gap 8 L Estim Creat Clear Calc 118.5 Estimated GFR > 60 Fasting Glucose 117 H Calcium 8.6 Total Bilirubin 0.2 AST 29 ALT 31 Alkaline Phosphatase 34 L Total Protein 6.1 L Albumin 3.7 Microbiology Microbiology Results: Microbiology 12/12/24 20:55 Blood Culture - Final Blood - Venous No growth after 5 days. 12/12/24 20:55 Blood Culture - Final Blood - Venous No growth after 5 days. Assessment and Plan (1) Dysphagia: Status: Acute (2) Odynophagia: Status: Acute Plan 24yo F with anxiety/depression presenting with throat pain after taking fluconazole for candidal vaginitis; seen in [facility] ED and thought to have allergy to fluconazole treated with steroids; presenting here with tongue swelling, rash on upper chest; whitish discoloration on inside of cheek; and odynophagia - HIV negative, RPR negative , blood cultures x2 negative - ID following; on caspofungin 12/13-, ceftriaxone + clindamycin 12/14-; Bartonella + Toxoplasma pending - dexamethasone 12/14- - CT neck with no acute findings though now there are palpable lymph nodes in the left anterior cervical chain , head and neck ultrasound showed prominent left submental lymph nodes which may be reactive in nature - C1 esterase inhibitor, C1 esterase protein, C4 level , C3, CH50 pend. - GI consulted underwent upper endoscopy that showed normal esophagus ,stomach and duodenum, odynophagia likely due to edema of the tongue and oropharynx no esophageal pathology noted - differential includes allergic reaction to fluconazole /geographical tongue/? lichen planus ? candidaisis - seen by speech diet changed to advanced chopped with thin liquids - CRP 1.75 improved to 0.32/esr 9 - will place on magic mouthwash scheduled q.i.d./ follow pending labs, DC all antibiotics , steroids and IV fluids. monitor clinical course closely, will discuss further treatment plan with ID. mood disorder - oxcarbazepine VTE ppx - enoxaparin dispo - eventual home In my clinical judgment, the patient requires continued inpatient hospitalization for the following reasons: IV antibiotics/antifungal, EGD Quality Stroke Does the patient have a stroke diagnosis?: No VTE Prior VTE?: No VTE Risk Level:: Medical - moderate - high VTE Device Contraindication: N/A - Device Ordered VTE Drug Contraindication: N/A - Med Ordered
[2024-12-18 14:53] VITALS: BP 117/80; PULSE 68; RESP 18; TEMP 36.6; O2SAT 100
[2024-12-18] MEDS: Multivitamin TABLET 1 TAB PO (14:56)
[2024-12-18] MEDS: ondansetron HCL 4 MG/2 ML VIAL IVPUSH ×2 (15:12→20:59)
[2024-12-18 19:48] VITALS: BP 109/69; PULSE 61; RESP 18; TEMP 36.8; O2SAT 99
[2024-12-18] MEDS: OXcarbazepine 300 MG TABLET PO (20:59)
[2024-12-18] MEDS: Melatonin 3 MG TABLET 6 MG PO (22:32)
[2024-12-18 23:28] VITALS: BP 101/56; PULSE 63; RESP 18; TEMP 37.1; O2SAT 98
[2024-12-19] MEDS: Heparin Sodium,Porcine 5,000 UNIT/ML VIAL 5000 UNIT SUBCUT (01:57)
[2024-12-19] MEDS: Mag&Al/Sim/Diphenhyd/Lidocaine 10 ML ORAL.SUSP PO ×2 (01:57→06:36)
[2024-12-19 04:00] VITALS: BP 96/56; PULSE 68; RESP 18; TEMP 37.1; O2SAT 98
[2024-12-19 07:54] VITALS: BP 103/61; PULSE 58; RESP 18; TEMP 36.6; O2SAT 99
[2024-12-19] MEDS: Multivitamin TABLET 1 TAB PO (09:51)
[2024-12-19] MEDS: OXcarbazepine 300 MG TABLET PO (09:52)
[2024-12-19] MEDS: 0.9 % Sodium Chloride Flush 3 ML SYRINGE IVFLUSH (09:53)
--- NOTE | 2024-12-19 10:30 | MHC.CM.PN ---
pt dcd home self care
--- NOTE | 2024-12-19 10:58 | P.DS_ITS ---
DS: Providers Provider Date of Service: 12/19/24 Date of admission: 12/12/24 23:06 Date of discharge: 12/19/24 Primary care physician: LEN Rutherford Consults: 12/12/24 21:44 Consult to Infectious Diseases Routine Consulting Provider: [facility] Reason for consultation: esophageal candidiasis Has provider been notified: Yes 12/12/24 23:35 Consult to Gastroenterology Routine Consulting Provider: Curly Bermudez Reason for consultation: odynophagia Consult to Infectious Diseases Routine Consulting Provider: [facility] Reason for consultation: recent vaginal candiadisis, Oral thrush DS: Diagnosis Discharge Diagnosis (1) Dysphagia: Status: Acute (2) Odynophagia: Status: Acute DS: Summary Hospital Course Hospital Course: History of presenting illness: Date of Service: 12/13/24 Chief Complaint: Throat pain 24-year-old female with a past medical history of anxiety, depression presented to the hospital today with a chief complaint of throat pain. Patient reported that about a month ago she has vaginal discharge, swelling, went to the PCP who did smear for the vaginal discharge and found she has candidiasis and was given fluconazole. But she has not taken the fluconazole until last Tuesday. If she took the dose of fluconazole on last Tuesday she felt tongue swelling, throat tightness, hives on her body. She tried to take Benadryl, Claritin, ibuprofen at home but no significant improvement; subsequently went to the [facility] yesterday complaining of above symptoms; the team at the [facility] felt it is probably allergy reaction to the fluconazole and give her a dose of EpiPen, steroids and subsequently discharged her home. Patient mentioned that today she still has mild swelling on the tongue, pain in the tongue, whitish discoloration in the tongue on the inside of the cheek; also noted small rash on her upper chest. Patient mentioned that she has been developing throat pain for few days now. Lately has been having difficulty speaking and also difficulty swallowing. Has been not able to take any pills. Patient denies any chest pain or palpitations. Denies any nausea or vomiting. Denies any cough or sputum production. Denies any urinary symptoms.-patient reports that she used to have urinary frequency and burning but currently significantly improving. Patient mentioned that she has been monogamous relationship. He has a new boyfriend for the past 3 years. He used to be with another boyfriend for about 4 years before the current boyfriend. Denies high-risk sexual behavior. Denies any toxic habits. Mentions that her PCP has done chlamydia, gonorrhea, HIV few weeks ago and resulted negative. 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 Patient denies any numbness tingling or focal weakness. Denies any lightheadedness or dizziness. Hospital course: 24yo F with anxiety/depression presenting with throat pain after taking fluconazole for candidal vaginitis; seen in [facility] ED and thought to have allergy to fluconazole treated with steroids and discharged home; present presented to [facility] with tongue swelling, rash on upper chest; whitish discoloration on inside of cheek; and odynophagia, underwent extensive testing including HIV negative, RPR negative , blood cultures x2 negative seen by ID and was empirically placed on IV caspofungin, IV ceftriaxone, IV clindamycin and dexamethasone, CT neck with showed no acute findings , head and neck ultrasound showed prominent left submental lymph nodes which may be reactive in nature, C1 esterase inhibitor, C1 esterase protein, C4 level , C3, CH50 pend,underwent upper endoscopy by Dr. Huitron that showed normal esophagus ,stomach and duodenum, odynophagia likely due to edema of the tongue and oropharynx, no esophageal pathology noted , differential includes allergic reaction to fluconazole /geographical tongue less likely lichen planus or candidaisis ,CRP 1.75 improved to 0.32/esr 9 All antibiotics and steroids discontinued, patient monitored for 24 hours, noted to have no recurrent symptoms , being discharged home on magic mouth wash for tongue discomfort, recommend to returned to check with recurrent symptoms and to avoid Diflucan. mood disorder continue oxcarbazepine. Time Attestation Discharge Coordination Time (in mins): 40 Quality: Safe Use of Opioids Does Pt have an Active Cancer Diagnosis on the Problem List?: No Quality: Stroke Does the patient have a stroke diagnosis?: No Physical Exam Vital Signs: Vital Signs: Last Vital Signs Temp 97.8 F 12/19/24 07:54 Pulse 58 12/19/24 07:54 Resp 18 12/19/24 07:54 BP 103/61 12/19/24 07:54 Pulse Ox 99 12/19/24 07:54 O2 Del Method Room Air 12/19/24 07:54 O2 Flow Rate 3 12/17/24 14:30 BMI result Body Mass Index 22.4 Const: Other: Gen: in no acute distress HEENT: moist mucus membranes, no apparent thrush , irregular margins with prominent tongue papillae Lungs: clear to auscultation bilaterally Heart: regular rate and rhythm, no murmurs Abd: soft, non-tender, non-distended Ext: no edema, hyperpigmention in between toe webs 2nd and 3rd left toe and 3rd and 4th right toe webs. Skin: warm/well-perfused Neuro: alert and oriented x3, no focal findings Psych: appropriate affect DS: Data Data Completed and Pending Labs on day of discharge: Laboratory Results - last 24 hr 12/14/24 15:33 Bartonella henselae IgG Negative Bartonella henselae IgM Negative Discharge Plan Discharge Anticipated Discharge Date/Time: 12/19/24 10:42 Patient Disposition: Home, Self-Care Discharge Diagnosis: Dysphagia Throat swelling Referrals: Shannon Wade FNP [Primary Care Provider] - 1 Week Discharge Medications: New Magic Mouthwash Diphen/Nystat/Antacid 1:1:1 240 mL suspension 10 ml PO QID Qty: 240 0RF Rx Instructions: nystatin 100,000 unit/mL oral suspension 80 mL; diphenhydramine 12.5 mg/5 mL oral liquid 80 mL; aluminum-mag hydroxide-simethicone 400 mg-400 mg-40 mg/5 mL oral susp 80 mL; Per 240 mL Continued hydroxyzine pamoate 50 mg capsule 50 mg PO TID PRN (Reason: anxiety) oxcarbazepine 300 mg tablet 300 mg PO BID azelastine 137 mcg (0.1 %) spray,non-aerosol 1 spray intranasal DAILY bupropion HCl 300 mg tablet extended release 24 hr 300 mg PO DAILY Vitamin 27 mg iron- 800 mcg tablet 1 tab PO DAILY Discontinued nystatin 100,000 unit/mL Suspension 5 ml BUCCAL QID Rx Instructions: administer 1/2 of dose in each side of the mouth Discharge Orders: Discharge Order (Routine); Ordered 12/19/24 Ordered By: María Brito Diet: Advance to usual diet Activity on Discharge: As tolerated Stand Alone Forms: Patient Portal Discharge page, Work/School Release Print Language: Upper Sorbian Care Plan Goals: Tongue swelling and difficulty swallowing resolved likely due to allergic reaction from Diflucan Take magic mouth wash swish and spit 4 times a day for 5 days total Returned to check with recurrent episode of tongue swelling or difficulty swallowing. Health Concerns: Continue all home medications as before Plan of Treatment: Outpatient follow-up with primary care physician call for appointment in next 1- 2 weeks Assessment: As above Discharge Date/Time: 12/19/24 12:01
[2024-12-19 11:40] VITALS: BP 106/72; PULSE 66; RESP 18; TEMP 36.8; O2SAT 100
[2024-12-19 14:49] LABS: C1q Antibody IgG 1 RU/mL (<26)
[2024-12-19 21:02] LABS: Complement C3 108 mg/dL (83-193)
[2024-12-19 23:08] LABS: C1 Esterase Inhibitor 100 % (>=68)
[2024-12-20 12:48] LABS: Toxoplasma IgM Antibody <8.00 AU/mL
[2024-12-21 16:09] LABS: C1Q Complement Component 5.7 mg/dL (5.0-8.6)
[2024-12-21 19:48] LABS: Complement Total CH50 41 U/mL (31-60)
== END 2024-12-19 12:01 | disposition home or self-care (01) | DRG 254 ==
LOC: HO.ED 12-13 01:14 → HO.EDOVER 12-13 02:39 → HO.S3 12-13 19:23
PROVIDERS: Family Medicine; Hospitalist; Internal Medicine; Internal Medicine Gastroenterology; Admitting Provider Hospitalist; Emergency Provider Internal Medicine; PCP Registered Nurse; Visit Provider Hospitalist
PROC: 0DJ08ZZ Inspection of Upper Intestinal Tract, Via Natural or Artificial Opening Endoscopic (ICD-10-PCS; CPT 43235; principal; 2024-12-17 14:40)
DX: R13.10 Dysphagia, unspecified (principal); F32.A Depression, unspecified; F41.9 Anxiety disorder, unspecified; F43.10 Post-traumatic stress disorder, unspecified; Z79.899 Other long term (current) drug therapy
CPT/HCPCS: 36415; 70491; 71045; 76536; 80048; 80053; 83516; 83605; 83615; 84702; 85025; 85027; 85652; 86140; 86160; 86161; 86162; 86611; 86777; 86778; 87040; 87389; 92526; 92610; 93306; 99285; J0637; J0696; J0736; J1100; J1644; J1885; J2003; J2250; J2270; J2405; J2470; J2704; Q9967

== ENCOUNTER → 2024-12-12 20:29 | Outpatient (BNV) | payer MEDICAID, SELFPAY | PROVIDERS: Emergency Provider Internal Medicine; PCP Registered Nurse; Visit Provider Student in an Organized Health Care Education/Training Program | DX: K20.90 Esophagitis, unspecified without bleeding (principal); B37.9 Candidiasis, unspecified | CPT/HCPCS: 70491; 71045 ==

== ENCOUNTER 2024-12-12 23:06 | Outpatient (BNV) | payer MEDICAID, SELFPAY | END 2024-12-14 17:00 | PROVIDERS: Admitting Provider Hospitalist; Emergency Provider Internal Medicine; PCP Registered Nurse; Visit Provider Internal Medicine Cardiovascular Disease | DX: R78.81 Bacteremia (principal) | CPT/HCPCS: 93306 ==

== ENCOUNTER 2024-12-12 23:06 | Outpatient (BNV) | payer MEDICAID, SELFPAY | END 2024-12-15 13:43 | PROVIDERS: Admitting Provider Hospitalist; Emergency Provider Internal Medicine; PCP Registered Nurse; Visit Provider Radiology Diagnostic Radiology | DX: R59.0 Localized enlarged lymph nodes (principal) | CPT/HCPCS: 76536 ==

== ENCOUNTER → 2024-12-12 23:06 | Outpatient (BNV) | payer MEDICAID, SELFPAY | PROVIDERS: Admitting Provider Hospitalist; Emergency Provider Internal Medicine; PCP Registered Nurse; Visit Provider Internal Medicine | DX: R13.10 Dysphagia, unspecified (principal) | CPT/HCPCS: 99223; 99232; 99233; 99499 ==

== ENCOUNTER → 2024-12-12 23:06 | Outpatient (BNV) | payer MEDICAID, SELFPAY | PROVIDERS: Admitting Provider Hospitalist; Emergency Provider Internal Medicine; PCP Registered Nurse; Visit Provider Internal Medicine | DX: R13.10 Dysphagia, unspecified (principal) | CPT/HCPCS: 99222; 99499 ==

== ENCOUNTER → 2024-12-12 23:06 | Outpatient (BNV) | payer MEDICAID, SELFPAY | PROVIDERS: Admitting Provider Hospitalist; Emergency Provider Internal Medicine; PCP Registered Nurse; Visit Provider Internal Medicine Gastroenterology | DX: B37.0 Candidal stomatitis (principal); R11.2 Nausea with vomiting, unspecified; R10.13 Epigastric pain; R13.10 Dysphagia, unspecified | CPT/HCPCS: 99222 ==

== ENCOUNTER 2025-01-14 13:29 | Outpatient (REF) | payer MEDICAID, SELFPAY ==
[2025-01-14 14:03] LABS: MANUAL DIFF FLAG NO
[2025-01-14 14:11] LABS: Basophils Absolute Auto 0.1 X10*3/uL (0.0-0.2); Basophils Percent Auto 0.7 % (0-2); Eosinophils Absolute Auto 0.1 X10*3/uL (0.0-0.4); Eosinophils Percent Auto 0.9 % (0-4); Hematocrit 37.2 % (37.0-47.0); Hemoglobin 12.8 g/dl (12.0-16.0); Imm Gran Abs Auto 0.03 X10*3/uL (0.00-0.03); Imm Gran Pct Auto 0.4 % (0.0-0.4); Lymphocytes Absolute Auto 1.6 X10*3/uL (1.2-4.9); Mean Corpuscular HGB Conc 34.4 g/dl (31.0-35.0); Mean Corpuscular Hemoglobin 32.4 pg (27.0-33.0); Mean Corpuscular Volume 94.2 fL (80.0-98.0); Mean Platelet Volume 10.9 fL (9.4-12.3); Monocytes Absolute Auto 0.5 X10*3/uL (0.1-1.2); Monocytes Percent Auto 6.2 % (2-11); Neutrophils Absolute Auto 5.3 x10*3/uL (2.0-8.3); Neutrophils Percent Auto 70.8 % (45-73); Platelet Count 201 X10*3/uL (160-400); Red Blood Count 3.95 X10*6/uL (4.20-5.50); White Blood Count 7.4 X10*3/uL (4.8-10.8)
[2025-01-14 14:32] LABS: INTERNATIONAL NORM RATIO 1.1 (0.9-1.1); Prothrombin Time 12.5 SEC (10.9-12.4)
[2025-01-14 14:50] LABS: Erythrocyte Sedimentation Rate 5 MM/HR (0-20)
[2025-01-14 14:51] LABS: Alanine Aminotransferase 15 U/L (0-31); Albumin Level 4.4 g/dL (3.5-5.0); Anion Gap 13 (12-20); Aspartate Amino Transferase 19 U/L (5-31); Bilirubin Total 0.6 mg/dL (0.0-1.0); Blood Urea Nitrogen 12 mg/dL (9-16); C Reactive Protein < 0.10 mg/dL (< or = 0.50); Carbon Dioxide 25 mmol/L (22-29); Chloride 105 mmol/L (96-108); Estimated Glomerular Filt Rate > 60; Glucose Random 83 mg/dL (60-115); Potassium 3.9 mmol/L (3.3-5.1); Rheumatoid Factor < 13.0 IU/mL (<15.0); Sodium 139 mmol/L (135-145); Total Protein 7.3 g/dL (6.5-8.0)
[2025-01-14 15:06] LABS: TSH reflex Free T4 0.92 uIU/mL (0.32-4.0); Vitamin D 25-OH Total 33.1 ng/mL (>30)
[2025-01-14 15:08] LABS: Alkaline Phosphatase 47 U/L (39-117)
[2025-01-14 15:30] LABS: Folate > 20.0 ng/mL (> or = 4.0); Vitamin B12 483 pg/mL (200-900)
--- OUTSIDE RECORDS SUMMARY | 2025-01-14 16:04 | XMS_ITS | Encounter Summary ---
Author Organization [employer] Address [address] [place] [address] Care Team Providers Care Road Oiler Name Role Phone Shannon Wade Primary Care Provider Reason for Visit * Reason Onset Date Comments Nurse Triage 12/10/2024 Encounter Details Date Type Department Care Team ([facility] st Contact Info) Description 12/10/2024 Telephone [facility] [address] [place] [address] Shannon Wade FNP [address] [place] [address] Nurse Triage Social History Tobacco Use Types [...] Telephone Encounter - Monica Lerma RN - 12/10/2024 1:42 PM EDT Called pt. She states that she went to [facility] for a yeast infection and she was prescribed Diflucan. Pt states that for the past 48 hours about 15 minutes after she took Diflucan pill,. She has tongue swelling and hives on her body all over. No itchy throat, no sx. Of throat closure, no SOB. Pt. Feelsthat her tongue swelling has not improved since it started 48 hours ago but, in fact it seems a little worse. I advised pt. To go to ED right away as allergy sx. Can worsen very rapidly and turn intoa possible fatal situation. Pt. States she has tried benadryl and also Clariten with no relief. Pt does not have any sores in mouth just swelling. Pt states she will go to [facility] ED for assessment and her Mother will drive her there right now. I advised if she gets any sensation in her throat to call 911 even if she is her way to ED. Pt. States she lives about 10 minutes away from [facility] ED. I will send this note to team nurses for fu on pt. Protocol Used: Anaphylaxis (Adult) Protocol-Based Disposition: Go to ED Now-Pt. Will got o [facility] ED NOW. Positive Triage Question: * Widespread hives, itching , and swollen tongue * All higher-acuity triage questions were negative * Telephone Encounter - Socrates Patel - 12/10/2024 1:26 PM EDT Symptom: Medication Reaction Outcome: Talk to a nurse or provider within 15 minutes Reason: Hives or rash all over the body The caller accepted this outcome. documented in this encounter Plan of Treatment Upcoming Encounters Date Type Department Care Team (Late st Contact Info) Description 01/22/2025 10:30 AM EDT Office Visit [facility] [address] [place] [address] Kojo Burns [address] [place] [address] 04/08/2025 10:00 AM EDT Office Visit [facility] [address] [place] [address] Alexis Medina 04/22/2025 9:00 AM EDT Office Visit [facility] [address] [place] [address] Shannon Wade FNP [address] [place] [address] documented as of this encounter Visit Diagnoses Not on filedocumented in this encounter Additional Health Concerns Assessment Noted Time PHQ-9 Depression Total Score: 25 024 3:37 PM EST documented as of this encounter Care Teams Road Oiler Relationship Specialty Start Date End Date Shannon Wade FNP [address] [place] [id number] PCP - General Family Medicine 07/24/21 Claudia Sarah Plate Glass GrinderPara Operator 02/24/24 documented as of this encounter
--- OUTSIDE RECORDS SUMMARY | 2025-01-14 16:04 | XMS_ITS | Clinical Summary ---
Author Organization [employer] Address [address] [facility] [address] [place] [address] Care Team Providers Care Skin Drier Name Role Phone Shannon Wade RAILROAD OPERATING ENGINEER Primary Care Provider [phone] Allergies Active Allergy Reactions Criticality Noted Date Comments Fluconazole Anaphylaxis,Hives,Swelling High 12/11/19 25 Lamotrigine Rash High 03/18/2024 Red Dye 06/18/2024 Medications * This document contains information received from the source organization and may not represent a complete record from that organization. EPINEPHrine (Epipen) 0.3 MG/0.3ML injection syringe Inject 0.3 mg into the shoulder, thigh, or buttocks. 07/14/20 18 Active Spacer/Aero-H olding Chambers (Compact Space Chamber) device USE WITH ALBUTEROL 06/16/20 22 Active cyproheptadin e (Periactin) 4 MG tablet Take 1 tablet by mouth in the morning. 04/04/20 23 Active hydrOXYzine pamoate (Vistaril) 25 MG capsule TAKE 1 CAPSULE BY MOUTH ONCE DAILY NEEDED FOR ANXIETY / PANIC ATTACK 04/04/20 23 Active acetaminophen (Tylenol) 500 MG tablet Take 2 tablets (1,000 mg) by mouth every 6 (six) hours if needed for moderate pain or fever for up to 25 doses. 30 tablet 10/26/19 24 Active valACYclovir (Valtrex) 500 MG tabletIndicat ions:HSV-1 (herpes simplex virus 1) infection Take 1 tablet (500 mg) by mouth Once daily. 90 tablet 2 11/22/19 24 Active hydrOXYzine pamoate (Vistaril) 50 MG capsuleIndica tions:Anxiety Take 1 capsule (50 mg) by mouth every 6 (six) hours if needed for itching for up to 10 days. 30 capsule 04/11/20 24 Active cyclobenzapri ne (Flexeril) 10 MG tabletIndicat ions:Neck muscle spasm Take 1 tablet (10 mg) by mouth 3 times daily for 10 days. 30 tablet 04/11/20 24 Active multivitamin () 27-0.8 MG tablet Take 1 tablet by mouth Once per day. 90 tablet 3 06/18/20 24 Active Minoxidil (Rogaine Mens) 5 % foamIndicatio ns:Telogen effluvium To apply to the scalp once a day 60 g 2 06/26/20 24 Active acyclovir (Zovirax) 5 % ointment Apply topically 6 (six) times a day. For one week as needed for cold sore. Space applications every 3 hours. 15 g 2 11/30/19 25 Active buPROPion XL (Wellbutrin XL) 300 MG 24 hr tablet Take 1 tablet by mouth Once per day. 12/02/19 25 Active OXcarbazepine (Trileptal) 300 MG tablet Take 1 tablet by mouth 2 times daily. 11/23/19 25 Active prazosin (Minipress) 2 MG capsule Take 1 capsule by mouth at bedtime. 09/28/19 25 Active Azelastine HCl 137 MCG/SPRAY solution SPRAY 1 SPRAY BY INTRANASAL ROUTE EVERY DAY 11/05/19 25 Active polyethylene glycol, PEG, 3350 (MiraLax) 17 GM/SCOOP powder Take 17 g by mouth Once per day. Mix with 4-8 ounces of water, coffee, or juice. 527 g 2 01/15/20 25 026 Active norgestimate- ethinyl estradiol (Ortho-Cyclen ) 0.25-35 MG-MCG tablet Take 1 tablet by mouth Once per day. 90 tablet 3 01/15/20 25 026 Active buPROPion XL (Wellbutrin XL) 150 MG 24 hr tablet Take 300 mg by mouth in the morning. 04/04/20 23 025 Discontinued(M ed list cleanup (will not trigger notification to Pharmacy)) prazosin (Minipress) 1 MG capsule Take 1 capsule (1 mg) by mouth at bedtime. 30 capsule 1 07/22/20 025 Discontinued(M ed list cleanup (will not trigger notification to Pharmacy)) OXcarbazepine (Trileptal) 150 MG tablet Take 150 mg by mouth Once per day. 05/17/20 025 Discontinued(M ed list cleanup (will not trigger notification to Pharmacy)) Active Problems Problem Noted Date Diagnosed Date Sleep difficulties 06/21/2024 Overview (06/21/2024): 05/28/24: Sleep Study completed at [facility]. Impresion: very mild sleep apnea. Can try AutoCPAP 6-15. Consider medication side effects and disorders of hypersomnia such as narcolepsy and idiopathic hypersomnia. Referral to Sleep Medicine for further eval / management 06/21/24 On Depo-Provera for contraception 10/16/2023 Assessment & Plan (10/16/2023 8:23 PM EST): ?? Next depo window: 12/01 - 12/30/23 ?? Message sent to [facility] RN team to add to schedule ?? 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 -Referral to ENT placed 01/19/24 for further eval Assessment & Plan (07/30/2023 6:56 PM EST): -Previous history of surgery through [facility], will request notes -left nostril continues to [...] active SI/HI/thoughts of self harm Followed through [facility] therapist and psychiatrist Current med regimen through psych: Bupropion 300mg daily Prazosin 2mg nightly Previous medications: (DC as of January 2024) Assessment & Plan (11/24/2023 11:30 AM EST): Exacerbation of symptoms of mental health, no active SI/HI/thoughts of self harm Followed through [facility] therapist and psychiatrist Crisis information reviewed Discussed possibility of respite/partial hospitalization/?IOP. Offered BE tele today, although prefers to have in person. Scheduled for Tuesday11/21/23. Crisis or ED over the weekend if needed. Assessment & Plan (09/09/2023 12:39 PM EST): PROGRESS NOTE: ID: Lisa is a 23 y.o. White straight-identified cis-female (pronouns she/her/hers) with previous documented hx of Depression, Anxiety, and Bipolar Disorder MH services including OP Psychotherapy and psychopharmacology, who presents for Anxiety, Depression, and Bipolar. Currently on her second undesired . She lives with multiple family members. Currently working at [employer] although she has not gone to work due to lack of motivation. Connected with through [facility], not taking medication due to . During [...] intervention , Patient to reach out to [facility] team as needed, Comply with medication , and Patient to follow-up with external team Assessment & Plan (07/30/2023 6:54 PM EST): ?? Following with psych/mental health team. Psych meds took priority today as pt has been off of meds for 2 weeks (abrupt withdrawal d/t lapse in insurance). Unlikely to expect call back on a Tuesday from pt's psych prescriber. Spoke with [facility] pharmacy and came up with the following [...] bleeding, dysfunctional 04/08/2023 Overview (01/19/2024): Referral to [facility] ABRASIVES SALES REPRESENTATIVE placed 01/19/24 Assessment & Plan (01/19/2024 11:22 AM EDT): - History of menorrhagia with saturating > 1 pad/hour and passing blood clots - [facility] ED eval in November 2023, pelvic [...] Pt on combination contraception - Referred to ABRASIVES SALES REPRESENTATIVE - Hematuria during [facility] eval, [...] of platelet of coagulation dx -referred to ABRASIVES SALES REPRESENTATIVE -alarm signs and symptoms in case needs [...] Encounters Date Type Department Care Team Description 01/14/2025 10:30 AM EDT Office Visit [facility] MED & PEDS [address] [place] [address] Shannon Wade FNP Encounter for routine history and physical examination of adult (Primary Dx); Bipolar 1 disorder (CMS/HCC); Uterine bleeding, dysfunctional; Encounter for immunization 01/14/2025 Patient Outreach [facility] MEDICINE [address] [place], [place] [phone] Shannon Wade FNP Care Coordination (CHW outreach for SDOH-patient declined to participate ) 01/14/2025 Travel 01/04/2025 Telephone [facility] MED & PEDS [address] [place] [address] Shannon Wade FNP No Show 01/01/2025 Patient Outreach [address] [address] Shannon Wade FNP Pre-visit Planning (SDOH screening completed on 12/28/24) 01/01/2025 Telephone [facility] MED & PEDS [address] [place] [address] Shannon Wade FNP Chart Prep 12/28/2024 Patient Outreach [address] [address] Shannon Wade FNP Transition Of Care (Tcm) (HDF scheduled and SDOH screening negative and Tobacco screening negative) 12/28/2024 Patient Outreach [address] [address] Shannon Wade FNP Transition Of Care (Tcm) (HDF unscheduled LVM ) 12/26/2024 Patient Outreach [address] [address] Shannon Wade FNP Transition Of Care (Tcm) (HDF unscheduled LVM ) 12/12/2024 6:20 PM EDT [facility] [address] [address] 12/11/2024 Telephone [facility] MED & PEDS [address] [place], [place] [phone] Shannon Wade FNP ER Follow-up 12/10/[address] [address] Shannon Wade FNP Nurse Triage 12/03/[address] [address] Yary Esteves, MARQUEZ Yeast infection 11/30/2024 Population Health Risk Score [facility] () Department [address] [place] [phone] Provider, Population Health Generic 11/29/2024 4:00 PM EDT Office Visit [facility] WALK-IN [address] [place] [address] Manjula Winter DO Labial lesion (Primary Dx); Dysuria; Herpes labialis 11/29/2024 Orders Only [facility] [address] [place] [address] Manjula Winter DO 11/20/2024 11:15 AM EST Telemedicine [facility] & PEDS [address] [place], [place] [phone] Roosevelt Mendes MD Sleep difficulties (Primary Dx) 11/20/2024 Travel 11/19/2024 Telephone [facility] [address] [place] [address] Shannon Wade FNP Nurse Triage 11/01/[address] [address] Shannon Wade FNP Appointment from Last 3 Months Immunizations Name Administration Dates Next Due DTaP 05/24/2006, 4,06/11/2003,05/09,2002 HPV, Quadrivalent 01/07/2015,09/04/2014,07/04/20 14 Hep A, ped/adol, 2 dose 06/01/2017,01/02/2016 Hep B, Adolescent or Pediatric 8,06/11/2003,05/09/2003,12/19 Hib ([facility]) 06/02/2004, 3,2002,08/01 IPV 05/24/2006, 3,2002,08/01 Influenza injectable quadriv alent preservative free 06/20/2023,06/09/2022,08/10/2019,07/21,10/10/2015 Influenza live intranasal qu adrivalent LIAV4 07/04/2014 Influenza, IIV3, injectable 09/30/2008 MMR 05/24/2006,06/11/2003 Meningococcal MCV4P ACYW-135 07/21/2018,07/04/20 14 Pfizer Covid-19 Vaccine 12+ 12/25/2021, 2 Pfizer Covid-19 Vaccine 12+ oralia-sucrose (Johnson Cap) 12/25/2021,12/03/2021 Pneumococcal Conjugate PCV 7 07/11/2003,06/11/20 03,05/09/2003 Tdap 01/14/2025,07/04/2014 Varicella 09/30/2008,04/28/2005 Social History Tobacco Use Types Packs/Day Years Used Date Smoking Tobacco: Never Passive Smoke Exposure: Never Smokeless Tobacco: Never Tobacco Cessation:Counseling Given: Not Answered Alcohol Use Standard Drinks/Week Comments Never 0 (1 standard drink = 0.6 oz pur e alcohol) Depression Answer Date Recorded Patient Health Questionnaire-9 Score 19 01/14/2025 Patient Health Questionnaire-9 Score 19 01/14/2025 Last PHQ-9: Questionnaire Data Not on file 0 01/14/2025 Housing Stability Answer Date Recorded What is your housing situation today? I have mautila corrales 01/14/[address] you li ve. Do you have problems with any of the following? Mold 01/14/2025 Food Insecurity Answer Date Recorded Within the past 12 months, y ou worried that your food would run out before you got money to buy more: Often true 2024 Within the past 12 months,th e food you bought just didn't last and you didn't have enough money to get more: Sometimes True 01/14/2025 Transportation Answer Date Recorded In the past 12 months, has l ack of transportation kept you from medical appts, meetings, work or from getting things needed for daily living? No 12/28/2024 Utilities Answer Date Recorded In the past 12 months, has t he electric, gas, oil or water company threatened to shut off services in your home? No 07/04/2023 Depression Answer Date Recorded Patient Health Questionnaire-2 Score 5 01/14/2025 Internet Access Answer Date Recorded Internet Access Q1 Yes 12/28/2024 Internet Access Q2 Not on file 12/28/2024 Comments No Sex and Gender Information Value Date Recorded Sex Assigned at Female 07/19/2022 10:20 AM EDT Legal Sex Female 10:20 AM EDT Gender Identity Female 07/19/2022 10:20 AM EDT Sexual Orientation Straight 07/19/2022 10 :20 AM EDT Last Filed Vital Signs Vital Sign Reading Time Taken Comments Blood Pressure 110/72 01/14/2025 10:36 AM EDT Pulse 66 01/14/2025 10:36 AM EDT Temperature 36.1 ??C (97 ??F) 01/14/2025 10:36 AM EDT Respiratory Rate 19 01/14/2025 10:36 AM EDT Oxygen Saturation 99% 01/14/2025 10:36 AM EDT Inhaled Oxygen Concentration - - Weight 53.3 kg (117 lb 8 oz) 01/14/2025 10:36 AM EDT Height 165.1 cm (5' 5 ) 01/14/2025 10:36 AM EDT Body Mass Index 19.55 01/14/2025 10:36 AM EDT Plan of Treatment Upcoming Encounters Date Type Department Care Team (Late st Contact Info) Description 01/22/2025 10:30 AM EDT Office Visit [facility] ADULT DENTAL [address] [place] [address] Curt Burnset [address] [place] [address] 04/08/2025 10:00 AM EDT Office Visit [facility] ADULT DENTAL [address] [place] [address] Alexis Medina 04/22/2025 9:00 AM EDT Office Visit [facility] MED & PEDS [address] [place] [address] Shannon Wade FNP [address] [place] [address] Health Maintenance Due Date Last Done Comments Alcohol/Substance Use Screening 2014 Family Planning (PISQ) 2017 COVID-19 Vaccine ( season) 2024 12/13/2022, 12/25/2021, 12/25/2021, Additional history exists Influenza Vaccine (#1) 2024 , 06/09/2022, 08/10/2019, Additional history exists Dental Oral Exam 04/05/2025 10/05/2024 Dental Prophylaxis 04/05/2025 10/05/2024 Dental X-Ray: Bitewings 10/06/2025 10/05/2024, 06/22 Chlamydia and Gonorrhea Screening 11/29/2025 11/29/2024, 10/10/2023, 07/22/2023, Additional history exists Depression Screening 01/14/2026 01/14/2025, 01/15/20 25 SDOH Screening 01/14/2026 01/14/2025 Tobacco Screening 01/14/2026 01/14/2025 Pap Smear 10/10/2026 10/10/2023 Dental X-Ray: Full Mouth 10/06/2027 10/05/2024 DTaP/Tdap/Td Vaccines (8 - Td or Tdap) 01/14/2035 01/14/2025, 07/04/2014, 05/24/2006, Additional history exists Zoster Vaccines (1 of 2) 2052 RSV [...] Vaccine Completed 07/21/2018, 014 HIV Screening Completed 11/29/2024, 07/20, 06/12/2021 Hepatitis C Screening Completed 11/29/2024 , 06/20/2023, 07/30/2021 RSV under 20 months Aged Out No longe r eligible based on patient's age to complete this topic Rotavirus Vaccines Aged Out No longer eligible based on patient's age to complete this topic Procedures Procedure Name Priority Date/Time Associated Diagnosis Comments PROTHROMBIN TIME-INR Routine 01/14/2025 1:31 PM EDT Encounter for routine history and physical examination of adult TSH W/REFLEX TO FT4 Routine 01/14/2025 1 :31 PM EDT Encounter for routine history and physical examination of adult VITAMIN B12/FOLATE, SERUM PANEL Routine 01/14/2025 1:31 PM EDT Encounter for routine history and physical examination of adult VITAMIN D,25-OH,TOTAL,IA Routine 01/14/2025 1:31 PM EDT Encounter for routine history and physical examination of adult CBC WITH AUTO DIFFERENTIAL Routine 01/14/2025 1:31 PM EDT Encounter for routine history and physical examination of adult COMPREHENSIVE METABOLIC PANEL Routine 01/14/2025 1:31 PM EDT Encounter for routine history and physical examination of adult SED RATE BY MODIFIED WESTERGREN Routine 01/14/2025 1:31 PM EDT Encounter for routine history and physical examination of adult C-REACTIVE PROTEIN Routine 01/14/2025 1: 31 PM EDT Encounter for routine history and physical examination of adult RHEUMATOID FACTOR Routine 01/14/2025 1:3 1 PM EDT Encounter for routine history and physical examination of adult US HEAD NECK SOFT TISSUE Routine 12/15/2024 1:[address] SOFT TISSUE NECK W CONTRAST Routine 12/13/2024 12:03 AM EDT XR CHEST 1 VIEW Routine 12/12/2024 9:25 PM EDT HSV 1/2 IGG,TYPE SPECIFIC AB Routine 11/29/2024 3:35 PM EDT Labial lesion Dysuria HEPATITIS B CORE AB TOTAL Routine 11/29/2024 3:35 PM EDT Labial lesion Dysuria HEPATITIS B SURFACE ANTIBODY, QUALITATIVE Routine 11/29/2024 3:35 PM EDT Labial lesion Dysuria RPR (MONITOR) W/REFL TITER Routine 11/29/2024 3:35 PM EDT Labial lesion Dysuria HEPATITIS C AB W/REFL TO HCV RNA, QN, PCR Routine 11/29/2024 3:35 PM EDT Labial lesion Dysuria HIV 1/2 ANTIGEN/ANTIBODY, FOURTH GENERATION W/RFL Routine 11/29/2024 3:35 PM EDT Labial lesion Dysuria HEPATITIS B SURFACE ANTIGEN, EIA Routine 11/29/2024 3:35 PM EDT Labial lesion Dysuria HERPES CULTURE WITH REFLEX TYPING Routine 11/29/2024 3:08 PM EDT CULTURE, URINE, ROUTINE Routine 11/29/2024 3:08 PM EDT Dysuria CHLAMYDIA/N. GONORRHOEAE RNA, TMA, UROGENITAL Routine 11/29/2024 3:08 PM EDT Labial lesion BACTERIAL VAGINOSIS PANEL Routine 11/29/2024 3:08 PM EDT Labial lesion POCT , URINE Routine 11/29/2024 3:06 PM EDT Dysuria POCT URINALYSIS DIPSTICK Routine 11/29/2024 3:06 PM EDT Dysuria Full PROPHYLAXIS - ADULT Routine 10/05/2024 2:00 PM EST PANORAMIC RADIOGRAPHIC IMAGE Routine 10/05/2024 2:00 PM EST BITEWINGS - 4 RADIOGRAPHIC IMAGES Routine 10/05/2024 2:00 PM EST PERIODIC ORAL EVALUATION - ESTABLISHED PATIENT Routine 10/05/2024 2:00 PM EST PAP SMEAR Routine 10/10/2023 9:20 AM EST Screening for cervical cancer from Last 3 Months or Most Recently Relevant to Health Maintenance Results * Vitamin D, 25-Hydroxy, Total, Immunoassay (01/14/2025 1:31 PM EDT) Vitamin D 25-OH Total 33.1 >30 ng/mL [facility] Comment: Health Based Reference Values*< 20 ??ng/mL ??Myiodfypf78-87 ng/mL ??Insufficient> 30 ??ng/mL ??Sufficient*Alan CORONEL. N Engl J Med. 2007;357:266-280There is no well-established upper level of normal vitamin Dlevels. Some laboratories use 50 ng/mL as an upper limit ofnormal. However, toxicity is patient-dependent and may occurat any level. Careful correlation with the patient'spresentation is necessary and, if there is concern forvitamin D toxicity, treatment should be consideredirrespective of the serum level.Care must be taken in interpreting Vitamin D results fromdifferent laboratories and methodologies. ??Published datademonstrated that results from patients undergoinghemodialysis may show a negative bias when tested withvarious automated 25-OH vitamin D assays when compared toLC- MS/MS.When testing samples from patients whose predominant form ofVitamin D is Vitamin D2, such as patients receiving VitaminD2 supplementation, results that are subtherapeutic shouldbe confirmed with another method such as LC-MS/MS. Blood Venous blood specimen / Unknown 01/14/2025 1:31 PM EDT 01/14/2025 1:59 PM EDT us Shannon Wade [employer]ILRO[employer] OPERATING ENGINEER LAB BLOOD ORDERABLES Final Res ult [facility] [address] [place] [address] [phone] * Vitamin B12/Folate, Serum Panel (01/14/2025 1:31 PM EDT) Vitamin B12 483 200 - 900 pg/mL [facility] Comment:NORMAL 200-900 PG/ML INDETERMINATE 160-199 PG/ML DEFICIENT < 160 PG/ML Folate >20.0 > or = 4.0 ng/mL [facility] Comment:Reference Values:> o r = 4.0 ng/mL< 4.0 ng/mL suggests folate deficiency Methotrexate, aminopterin and folinic acid(leucovorin) are chemotherapeutic agents whose molecularstructures are similar to folate; therefore, the Architectfolate assay cannot be used for patients using these drugs. Blood Venous blood specimen / Unknown 01/14/2025 1:31 PM EDT 01/14/2025 1:59 PM EDT Shannon Wade [facility] LAB BLOOD ORDERABLES Final Res ult Performing Organization Address [facility] Co de Phone Number [facility] [address] [place] [phone] * TSH W/Reflex to FT4 (01/14/2025 1:31 PM EDT) TSH reflex Free T4 0.92 0.32 - 4.0 uIU/mL [facility] Blood Venous blood specimen / Unknown 01/14/2025 1:31 PM EDT 01/14/2025 1:59 PM EDT Shannon Wade [facility] LAB BLOOD ORDERABLES Final Res ult Performing Organization Address [facility]/ZIP Co de Phone Number [facility] [address] [place] [phone] * (ABNORMAL) CBC auto differential (01/14/2025 1:31 PM EDT) White Blood Count 7.4 4.8 - 10.8 X10*3/uL [facility] Red Blood Count 3.95(L) 4.20 - 5.50 X10*6/uL [facility] Hemoglobin 12.8 12.0 - 16.0 g/dl [facility] Hematocrit 37.2 37.0 - 47.0 % [facility] Mean Corpuscular Volume 94.2 80.0 - 98.0 fL [facility] Mean Corpuscular Hemoglobin 32.4 27.0 - 33.0 pg [facility] Mean Corpuscular HGB Conc 34.4 31.0 - 35.0 g/dl [facility] Red Cell Distribution Width 13.0 11.0 - 16.0 % [facility] Platelet Count 201 160 - 400 X10*3/uL [facility] Mean Platelet Volume 10.9 9.4 - 12.3 fL [facility] Neutrophils Percent Auto 70.8 45 - 73 % [facility] Imm Gran Pct Auto 0.4 0.0 - 0.4 % [facility] Lymphocytes Percent Auto 21.0 20 - 40 % [facility] Monocytes Percent Auto 6.2 2 - 11 % [facility] Eosinophils Percent Auto 0.9 0 - 4 % [facility] Basophils Percent Auto 0.7 0 - 2 % [facility] NRBC Pct Auto 0.0 0.0 - 0.2 /100WBC [facility] Neutrophils Absolute Auto 5.3 2.0 - 8.3 x10*3/uL [facility] Imm Gran Abs Auto 0.03 0.00 - 0.03 X10*3/uL [facility] Lymphocytes Absolute Auto 1.6 1.2 - 4.9 X10*3/uL [facility] Monocytes Absolute Auto 0.5 0.1 - 1.2 X10*3/uL [facility] Eosinophils Absolute Auto 0.1 0.0 - 0.4 X10*3/uL [facility] Basophils Absolute Auto 0.1 0.0 - 0.2 X10*3/uL [facility] NRBC Abs Auto 0.000 0.0 - 0.012 X10*3/uL [facility] Blood Venous blood specimen / Unknown 01/14/2025 1:31 PM EDT 01/14/2025 1:59 PM EDT Shannon Wade [employer] OPERATING ENGINEER LAB BLOOD ORDERABLES Final Res ult Performing Organization Address City/[facility]/ZIP Co de Phone Number [facility] [address] [place] [address] [phone] * Sed Rate by Modified Tyrelergren (01/14/2025 1:31 PM EDT) Erythrocyte Sedimentation Rate 5 0 - 20 MM/HR [facility] Comment:Patients with polycy themia and many hemoglobin abnormalitiesmay have depressed sed rates whereas patients with anemiamay have elevated sed rates. Blood Venous blood specimen / Unknown 01/14/2025 1:31 PM EDT 01/14/2025 1:59 PM EDT Shannon Wade [employer]IL[employer] OPERATING ENGINEER LAB BLOOD ORDERABLES Final Res ult Performing Organization Address [facility] Co de Phone Number [facility] [address] [place] [address] [phone] * (ABNORMAL) Prothrombin Time-INR (01/14/2025 1:31 PM EDT) Prothrombin Time 12.5(H) 10.9 - 12.4 SEC [facility] INTERNATIONAL NORM RATIO 1.1 0.9 - 1.1 [facility] Comment:INTERNATIONAL NORMAL IZED RATIO (INR) REFERENCE RANGES Reference RangeFor patients not on anticoagulant therapy: 0.9 - 1.1INR ranges for oral anticoagulanttherapy:For prevention and treatment of venous thrombosis and pulmonary embolism: 2.0 - 3.0For acute myocardial infarction with aspirin therapy: 2.0 - 3.0For acute myocardial infarction without aspirin therapy: 3.0 - 4.0For patients with mechanical prosthetic heart valves: 2.5 - 3.5 Blood Venous blood specimen / Unknown 01/14/2025 1:31 PM EDT 01/14/2025 1:59 PM EDT Shannon Wade [employer] OPERATING ENGINEER LAB BLOOD ORDERABLES Final Res ult Performing Organization Address City/[facility] Co de Phone Number [facility] [address] [place] [phone] * Rheumatoid Factor (01/14/2025 1:31 PM EDT) [facility] Rheumatoid Factor <13.0 <15.0 IU/mL [facility] Blood Venous blood specimen / Unknown 01/14/2025 1:31 PM EDT 01/14/2025 1:59 PM EDT Shannon Wade [employer] OPERATING ENGINEER LAB BLOOD ORDERABLES Final Res ult Performing Organization Address [facility] [facility] Co de Phone Number [facility] [address] [place] [phone] * C-reactive Protein (01/14/2025 1:31 PM EDT) [facility] C Reactive Protein <0.10 < or = 0.50 mg/dL [facility] Blood Venous blood specimen / Unknown 01/14/2025 1:31 PM EDT 01/14/2025 1:59 PM EDT Shannon Wade [facility] LAB BLOOD ORDERABLES Final Res ult Performing Organization Address [facility] Co de Phone Number [facility] [address] [place] [phone] * Comprehensive Metabolic Panel (01/14/2025 1:31 PM EDT) Pathologist [facility] Sodium 139 135 - 145 mmol/L [facility] Potassium 3.9 3.3 - 5.1 mmol/L [facility] Chloride 105 96 - 108 mmol/L [facility] Carbon Dioxide 25 22 - 29 mmol/L [facility] Anion Gap 13 12 - 20 [facility] Urea Nitrogen (BUN) 12 9 - 16 mg/dL [facility] Creatinine, Serum 0.71 0.5 - 1.4 mg/dL [facility] Estimated Glomerular Filt Rate >60 [facility] Comment:Chronic Kidney Disea se: Estimated GFR < 60 mL/min/1.62i3Rwodzf Kidney Disease: Estimated GFR < 15 mL/min/1.73m2 Glucose 83 60 - 115 mg/dL [facility] Calcium 10.0 8.4 - 10.2 mg/dL [facility] Bilirubin, Total 0.6 0.0 - 1.0 mg/dL [facility] Aspartate Amino Transferase 19 5 - 31 U/L [facility] Alanine Aminotransferase 15 0 - 31 U/L [facility] Total Protein 7.3 6.5 - 8.0 g/dL [facility] Albumin Level 4.4 3.5 - 5.0 g/dL [facility] Alkaline Phosphatase 47 39 - 117 U/L [facility] Blood Venous blood specimen / Unknown 01/14/2025 1:31 PM EDT 01/14/2025 1:59 PM EDT us Shannon Wade [employer]ILROAD OPERATING ENGINEER LAB BLOOD ORDERABLES Final Res ult Performing Organization Address City/State/[facility] Co de Phone Number [facility] [address] [place] [phone] * US Head Neck Soft Tissue (12/15/2024 1:43 PM EDT) Anatomical Region Laterality Modality Head, Neck Ultrasound 12/15/2024 1:43 PM EDT Narrative 12/17/2024 7:47 AM EDT ? [facility] ?[address] ?[place] [address] ? Ultrasound Report ? Signed ? Patient: Rayray Hernandez,Lisa ? MR#: [id number] ? : 2000 ?Acct:[id number] ? Age/Sex: 24 / F ?ADM Date: 03/26/25 ? Loc: HO.S3 ?352-1 ? Attending : Prince Brantley DO ? Ordering Physician: Ruth Joseph MD ?? Date of Service: 12/15/24 ?? Procedure(s): US soft tiss head and/or neck ?? Accession Number(s): [id number] ? cc: Ruth Joseph MD; Shannon Wade ? EXAMINATION: ??US HEAD NECK SOFT TISSUE ? HISTORY: cervical lymphadenopathy L ? COMPARISON: Correlation is made with a contrast-enhanced CT of the neck ?? dated 12/12/2024. ? FINDINGS: ??Sonographic examination of the left neck was performed. ?? There are multiple prominent lymph nodes in the submental area. These ?? demonstrate cortical thickening and no discernible fatty hilum. These ?? measure 17 x 6 x 14 mm, 10 x 3 x 9 mm, 8 x 5 x 6 mm, and 9 x 6 x 6 mm. ?? These are not enlarged by imaging criteria, however. ? US/US soft tiss head and/or neck ?? IMPRESSION: ?? Prominent left submental lymph nodes, which may be reactive in nature. ?? Follow-up is suggested. ? Electronically signed by: ??Yoan Marie MD ??12/17/2024 07:44 AM EDT ? Dictated By: ?Yoan Marie MD ? Signed By: ?<Electronically signed by Yoan Marie MD in OV> ?12/17/24 0744 ? DD/ 1343 ? TD/TT: 12/15/24 1349 ? Convenience Store Manager: ? Procedure Note Aury, Image - 12/17/2024 [place] [address] Ultrasound Report Signed Patient: Lisa Doe MR#: [id number] : 2000Acct:[id number] Age/Sex: 24 Date: 12/12/24 Loc: .S3 352-[address]: Prince Brantley DO Ordering Physician: Ruth Joseph MD Date of Service: 12/15/24 Procedure(s): US soft tiss head and/or neck Accession Number(s): [id number] cc: Ruth Joseph MD; Shannon Wade EXAMINATION: US HEAD NECK SOFT TISSUE HISTORY: cervical lymphadenopathy L COMPARISON: Correlation is made with a contrast-enhanced CT of the neck dated 12/12/2024. FINDINGS: Sonographic examination of the left neck was performed. There are multiple prominent lymph nodes in the submental area. These demonstrate cortical thickening and no discernible fatty hilum. These measure 17 x 6 x 14 mm, 10 x 3 x 9 mm, 8 x 5 x 6 mm, and 9 x 6 x 6 mm. These are not enlarged by imaging criteria, however. US/US soft tiss head and/or neck IMPRESSION: Prominent left submental lymph nodes, which may be reactive in nature. Follow-up is suggested. Electronically signed by: Yoan Marie MD 12/17/2024 07:44 AM EDT RP Dictated By: Yoan Marie MD Signed By: <Electronically signed by Yoan Marie MD in OV> 12/17/24 0744 DD/ 1343 TD/TT: 12/15/24 1349 Convenience Store Manager: [facility] External Provider IMG US PROCEDURES Final Result * CT Soft Tissue Neck w/ Contrast (12/13/2024 12:03 AM EDT) Anatomical Region Laterality Modality Head, Neck Computed Tomogra phy 12/13/2024 12:0 3 AM EDT Narrative 12/13/2024 12:06 AM EDT ? [facility] ?[address] ?[place] [address] ? CT Scan Report ? Signed ? Patient: Lisa Doe ? MR#: [id number] ? : 2000 ?Acct:[id number] ? Age/Sex: 24 / F ?ADM Date: 12/12/24 ? Loc: HO.ED ? Attending Dr: ? Ordering Physician: French Mendez MD ?? Date of Service: 12/12/24 ?? Procedure(s): CT soft tissue neck w IV con ?? Accession Number(s): [id number] ? cc: Shannon Wade RAILROAD OPERATING ENGINEER; French Mendez MD ? Report Number: ?? [id number]: Total DLP = ??287.00 mGy-cm ? CLINICAL HISTORY: esophagitis candidiasis ? CT soft tissue neck with contrast ? Comparison: None ? Findings: ?? The visualized intracranial contents are unremarkable. ?? Pharyngeal mucosal space, parapharyngeal fat, prevertebral tissues, and ?? epiglottis are within normal limits. ?? Salivary glands are within normal limits. No sialoliths. ?? No suspicious thyroid nodules. ? No consolidation at the lung apices. ?? No acute fractures. ? IMPRESSION: ?? No acute findings. ? This document has been electronically signed by: Danilo Dumont MD on ?? 12/13/2024 00:03:49 ? Dictated By: ?Danilo Dumont MD ? Signed By: ?<Electronically signed by Danilo Dumont MD in OV> ? 12/13/24 0004 ? DD/ 0003 ? TD/TT: 12/13/24 0003 ? Convenience Store Manager: ? Procedure Note Donjuan manuelter, Image - 12/13/[address] [place] [address] [address] Scan Report Signed Patient: Lisa Doe MR#: [id number] : 2000Acct:[id number] Age/Sex: 24 / FADM Date: 12/12/24 Loc: HO.ED Attending Dr: Ordering Physician: French Mendez MD Date of Service: 12/12/24 Procedure(s): CT soft tissue neck w IV con Accession Number(s): [id number] cc: Shannon Wade; French Mendez MD Report Number: [id number]: Total DLP = 287.00 mGy-cm CLINICAL HISTORY: esophagitis candidiasis CT soft tissue neck with contrast Comparison: None Findings: The visualized intracranial contents are unremarkable. Pharyngeal mucosal space, parapharyngeal fat, prevertebral tissues, and epiglottis are within normal limits. Salivary glands are within normal limits. No sialoliths. No suspicious thyroid nodules. No consolidation at the lung apices. No acute fractures. IMPRESSION: No acute findings. This document has been electronically signed by: Danilo Dumont MD on 12/13/2024 00:03:49 Dictated By: Danilo Dumont MD Signed By: <Electronically signed by Danilo Dumont MD in OV> 12/13/24 0004 DD/ 0003 TD/TT: 12/13/24 0003 Convenience Store Manager: us [facility] External Provider IMG CT PROCEDURES Edited Result - Final * XR Chest 1 View (12/12/2024 9:25 PM EDT) Anatomical Region Laterality Modality Chest Radiographic Shanda ging 12/12/2024 9:25 PM EDT Narrative 12/12/2024 9:26 PM EDT ? [facility] ?[address] ?[place] [address] ?XRay Report ? Signed ? Patient: RayrayLisa Horne ? MR#: [id number] ? : 2000 ?Acct:[id number] ? Age/Sex: 24 / F ?ADM Date: 12/12/24 ? Loc: HO.ED ? Attending Dr: ? Ordering Physician: French Mendez MD ?? Date of Service: 12/12/24 ?? Procedure(s): XR chest 1V ?? Accession Number(s): [id number] ? cc: Shannon Wade; French Mendez MD ? CLINICAL HISTORY: cough ? 1 view chest x-ray ? Comparison: None ? Findings: ?? The lungs are clear. ?? Heart size is normal. ?? No acute fracture. ? IMPRESSION: ?? 1. No acute findings. ? This document has been electronically signed by: Danilo Dumont MD on ?? 12/12/2024 21:25:26 ? Dictated By: ?Danilo Dumont MD ? Signed By: ?<Electronically signed by Danilo Dumont MD in OV> ? 12/12/242125 ? DD/ 24 ? TD/TT: 12/12/242124 ? Convenience Store Manager: ? Procedure Note Aury, Image - 12/12/[address] [address] XRay Report Signed Patient: Lisa Doe MR#: [id number] : 2000Acct:[id number] Age/Sex: 24 / FADM Date: 12/12/24 Loc: HO.ED Attending Dr: Ordering Physician: French Mendez MD Date of Service: 12/12/24 Procedure(s): XR chest 1V Accession Number(s): [id number] cc: Shannon Wade; French Mendez MD CLINICAL HISTORY: cough 1 view chest x-ray Comparison: None Findings: The lungs are clear. Heart size is normal. No acute fracture. IMPRESSION: 1. No acute findings. This document has been electronically signed by: Danilo Dumont MD on 12/12/2024 21:25:26 Dictated By: Danilo Dumont MD Signed By: <Electronically signed by Danilo Dumont MD in OV> 12/12/242125 DD/ 24 TD/TT: 12/12/242124 Convenience Store Manager: Result [facility] External Provider IMG XR PROCEDURES Edited Result - Final * Hepatitis C Antibody with Reflex to HCV, RNA, Quantitative, Real-Time PCR (11/29/2024 3:35 PM EDT) Hepatitis C Antibody Nonreactive Nonreactive [facility] Comment:Antibodies to HCV no t detected; does not exclude early acuteHCV infection. Blood Venous blood specimen / Unknown 11/29/2024 3:35 PM EDT 11/29/2024 4:14 PM EDT Result [facility] Manjula Winter DO LAB BLOOD ORDERABLES Final R esult Performing Organization Address [facility] Co de Phone Number [facility] [address] [place] [phone] * Hepatitis B surface antigen, EIA (11/29/2024 3:35 PM EDT) Hepatitis B Surface Ag Negative Negative [facility] Blood Venous blood specimen / Unknown 11/29/2024 3:35 PM EDT 11/29/2024 4:14 PM EDT Manjula Winter DO LAB BLOOD ORDERABLES Final R esult Performing Organization Address City/[facility] Co de Phone Number [facility] [address] [place] [phone] * Hepatitis B Core Antibody, Total (11/29/2024 3:35 PM EDT) Hepatitis B Core Antibody Nonreactive Nonreactive [facility] Blood Venous blood specimen / Unknown 11/29/2024 3:35 PM EDT 11/29/2024 4:14 PM EDT Manjula Winter DO LAB BLOOD ORDERABLES Final R esult [facility] [address] [place] [phone] * (ABNORMAL) Herpes Simplex Virus 1 and 2 (IgG), Type-Specific Antibodies (11/29/2024 3:35 PM EDT) Herpes Simplex Type 1 IgG 11.70(A) index [facility] Herpes Simplex Type 2 IgG <0.90 index [facility] Comment:Index Interpretation ----- <0.90 Negative 0.90-1.09 Equivocal >1.09 PositiveThis assay utilizes recombinant type-specific antigensto differentiate HSV-1 from HSV-2 infections. Apositive result cannot distinguish between recent andpast infection. If recent HSV infection is suspectedbut the results are negative or equivocal, the assayshould be repeated in 4-6 weeks. The performancecharacteristics of the assay have not been establishedfor pediatric populations, immunocompromised patients,or screening.For additional information, please refer tohttp://education.Jump or Fall/faq/WVS877(This link is being provided for informational/educational purposes only.)THIS TEST WAS PERFORMED AT:[id number] [place] [phone] GVAIRIA MD Blood Venous blood specimen / Unknown 11/29/2024 3:35 PM EDT 11/29/2024 4:14 PM EDT us Manjula Winter DO LAB BLOOD ORDERABLES Final R esult Performing Organization Address City/[facility]/ZIP Co de Phone Number [facility] [address] [place] [address] [phone] * RPR (Monitor) with Reflex to??Titer (11/29/2024 3:35 PM EDT) RPR (Monitor) w/Refl Titer NON-REACTI VE NON-REACT AUNDREA [facility] Comment:THIS TEST WAS PERFOR MED AT:[facility] [place] [phone] GAVIRIA MD Rapid Plasma Reagin Ab Titer TNP [facility] Blood Venous blood specimen / Unknown 11/29/2024 3:35 PM EDT 11/29/2024 4:14 PM EDT Manjula Winter DO LAB BLOOD ORDERABLES Final R esult Performing Organization Address [facility]/ZIP Co de Phone Number [facility] [address] [place] [phone] [phone] * HIV-1/2 Antigen and Antibodies, Fourth Generation, with Reflexes (11/29/2024 3:35 PM EDT) HIV AB/AG Nonreactive Nonreactive [facility] Comment:HIV-1 p24 Ag and/or HIV-1/HIV-2 Ab not detected.A test result that is nonreactive does not exclude thepossibility of exposure to or infection with HIV-1 and/orHIV-2. Nonreactive results in this assay for individualswith prior exposure to HIV-1 and/or HIV-2 may be due toantigen and antibody levels that are below the limit ofdetection of this assay.The [employer] HIV Ag/Ab Combo assay result andsupplemental assay results should be interpreted inconjunction with the patient's clinical presentation,history and other laboratory results. If the results areinconsistent with clinical evidence, additional testing issuggested to confirm the result. Blood Venous blood specimen / Unknown 11/29/2024 3:35 PM EDT 11/29/2024 4:14 PM EDT Manjula Winter LAB BLOOD ORDERABLES Final R esult Performing Organization Address [facility] Co de Phone Number [facility] [address] [place] [phone] [phone] * Hepatitis B Surface Antibody, Qualitative (11/29/2024 3:35 PM EDT) ~Hepatitis B Surface Antibody REACTIVE Nonreactive [facility] Comment:REACTIVE: > 11.99 mI U/mL Blood Venous blood specimen / Unknown 11/29/2024 3:35 PM EDT 11/29/2024 4:14 PM EDT [facility] BLOOD ORDERABLES Final R esult Performing Organization Address [facility] Co de Phone Number [facility] [address] [place] [phone] * (ABNORMAL) Bacterial Vaginosis Panel (11/29/2024 3:08 PM EDT) [facility] TRICHOMONAS VAGINALIS DETECTION BY PCR NOT DETECTED Not Detect [facility] BACTERIAL VAGINOSIS DETECTION BY PCR NEGATIVE Negative [facility] Comment:The BV organism targ ets of the Xpert Xpress MVP test can becommensal in women; Xpert Xpress MVP positive results forbacterial vaginosis should be considered in conjunction withother clinical and patient information to determine thedisease status. Organisms that are not detected by the XpertXpress MVP test have also been reported to be associatedwith BV and aerobic vaginitis.The Xpert Xpress MVP test performance has not been evaluatedin patients under the age of 14. EWA GROUP DETECTION BY PCR DETECTED(A) Not Detect [facility] Ewa glab krusei PCR NOT DETECTED Not Detect [facility] Swab Vaginal structure / Unknown 11/29/2024 3:08 PM EDT 11/29/2024 4:41 PM EDT Manjula Hartmanroverto LAB MICROBIOLOGY - GENERAL O RDERABLES Final Result Performing Organization Address [facility]/ZIP Co de Phone Number [facility] [address] [place] [phone] * Herpes Simplex Virus Culture with Reflex Typing (11/29/2024 3:08 PM EDT) [facility] HSV Culture/Type SEE NOTE [facility] Comment:HERPES SIMPLEX VIRUS CULTURE W/RFL TO TYPING Micro Number: [id number] Test Status: Final Specimen Source: Not given Specimen Quality: Adequate HSV Culture: Not IsolatedTHIS TEST WAS PERFORMED AT:[employer] [phone] MERATI,MD 11/29/2024 3:08 PM EDT 11/29/2024 4:40 PM EDT Manjula Michelmayte COL[facility] LAB MICROBIOLOGY - GENERAL O RDERABLES Final Result Performing Organization Address [facility] Co de Phone Number [facility] [address] [place] [phone] * Chlamydia/N. Gonorrhoeae RNA, TMA, Urogenitial (11/29/2024 3:08 PM EDT) CT PCR NOT DETECTED Not Detect. [facility] Comment:A not detected test result does not exclude the possibilityof infection because test results can be affected byimproper specimen collection, concurrent antibiotic therapy,or the number of organisms in the specimen which may bebelow the sensitivity of the test. As with many diagnostictests, results from the Xpert CT/NG assay should beinterpreted in conjunction with other laboratory andclinical data available to the clinician.Xpert CT/NG performance has not been evaluated in patientsless than 14 years of age. The assay should not be used forthe evaluationof suspected sexual abuse or for other medico-legalindications. Additional testing is recommended in anycircumstance when false positive or false negative resultscould lead to adverse medical, social or psychologicalconsequences. NG PCR NOT DETECTED Not Detect. [facility] Comment:A not detected test result does not exclude the possibilityof infection because test results can be affected byimproper specimen collection, concurrent antibiotic therapy,or the number of organisms in the specimen which may bebelow the sensitivity of the test. As with many diagnostictests, results from the Xpert CT/NG assay should beinterpreted in conjunction with other laboratory andclinical data available to the clinician.Xpert CT/NG performance has not been evaluated in patientsless than 14 years of age. The assay should not be used forthe evaluationof suspected sexual abuse or for other medico-legalindications. Additional testing is recommended in anycircumstance when false positive or false negative resultscould lead to adverse medical, social or psychologicalconsequences. Swab (Vaginal Swab) 11/29/2024 3:08 PM EDT 11/29/2024 4:41 PM EDT [facility] - 11/30/2024 11:38 AM EDT Vaginal Manjula Winter DO LAB MICROBIOLOGY - GENERAL O RDERABLES Final Result Performing Organization Address [facility] Co de Phone Number [facility] [address] [place] [phone] * Culture, Urine, Routine (11/29/2024 3:08 PM EDT) Urine Urine specimen obtained by clean catch procedure / Unknown 11/29/2024 3:08 PM EDT 11/29/2024 4:41 PM EDT Comment:[facility] - 12/01/2024 10:44 AM EDT Lactobacillus species Quant 10,000 to 50,000 cfu/mL Susc N/A Susceptibility not routinely performed on this isolate. Specimen Source: Urine clean catch Manjula Winter DO LAB MICROBIOLOGY - GENERAL O RDERABLES Final Result Performing Organization Address City/State/[facility] Co de Phone Number [facility] [address] [place] [phone] * POCT , urine manually resulted (11/29/2024 [...] TEST ENTER/VON T ORDERABLES Final Result * Pap Smear (10/10/2023 9:20 AM EST) Swab Cervical swab / Unknown 10/10/2023 9:20 AM EST 10/11/2023 9:30 AM EST Linda [facility] - 10/20/2023 9:35 AM EST ----- ------- Name: Lisa Doe ? Age/Sex: 23/F ? : 2000 Unit#: [id number] ?? Attend Dr: Shannon Wade RAILROAD OPERATING ENGINEER ?Re10/10/23 ?Status: DEP REF ? Location: HO.CHCLNP ? Disch: ? ----- ------- SPEC : [id number] ? RECD: 10/11/23 ? STATUS: ??SOUT ? REQ NUM: [id number] ? CONCHITA: 10/10/23 ? SUBM DR: Shannon Wade RAILROAD OPERATING ENGINEER ? ENTERED: ??10/11/23 ?SP TYPE: Pap Smr ?OTHR DR: ? ORDERED: ??Pap Smear ? Interpretation ?? Satisfactory for evaluation. ?? Moderate inflammation. ?? Negative for intraepithelial lesion or malignancy. ?Clinical Information LMP: Unknown date Previous PAP test: Unknown date/findings Other history: Oral contraceptive ? Material Received ?? ThinPrep-Cervical ----- ------- Signed (signature on file) ALBERTINA Miramontes (ASCP) 10/20/23 0935 ? ----- ------- ? END OF REPORT ? Shannon Wade RAILROAD OPERATING ENGINEER LAB CYTOLOGY ORDERABLES Final Result [facility] [address] [place] [phone] from Last 3 Months or Most Recently Relevant to Health Maintenance Insurance [facility] C3 [place] [facility] Care Teams Skin Drier Relationship Specialty Start Date End Date Shannon Wade FNP [address] [place] [address] PCP - General Family Medicine 07/24/21 Claudia Sarah Marketing MgrHome Health Speech Therapist 02/24/24
--- OUTSIDE RECORDS SUMMARY | 2025-01-14 16:04 | XMS_ITS | Encounter Summary ---
Author Organization [employer] Address [address] [place] [address] Care Team Providers Care Rigging Worker Name Role Phone Shannon Wade Primary Care Provider [phone] Reason for Visit * Reason Onset Date Comments Nurse Triage 11/19/2024 Encounter Details Date Type Department Care Team ([facility] st Contact Info) Description 11/19/2024 Telephone [facility] [address] [place] [address] Shannon Wade FNP [address] [place] [address] Nurse Triage Social History Tobacco Use Types [...] from 06/18/24: 05/28/24: Sleep Study completed at [facility]. Impresion: very mild sleep apnea. Can [...] from 06/18/24: 05/28/24: Sleep Study completed at [facility]. Impresion: very mild sleep apnea. Can [...] this symptom The caller accepted this outcome. [phone] documented in this encounter Plan of Treatment Upcoming Encounters Date Type Department Care Team (Late st Contact Info) Description 01/22/2025 10:30 AM EDT Office Visit [facility] [address] [place] [address] Kojo Burns [address] [place] [address] 04/08/2025 10:00 AM EDT Office Visit [facility] [address] [place] [address] Alexis Medina 04/22/2025 9:00 AM EDT Office Visit [facility] [address] [place] [address] Shannon Wade FNP [address] [place] [phone] documented as of this encounter Visit Diagnoses Not on filedocumented in this encounter Additional Health Concerns Assessment Noted Time PHQ-9 Depression Total Score: 25 024 3:37 PM EST documented as of this encounter Care Teams Rigging Worker Relationship Specialty Start Date End Date Shannon Wade FNP [address] [place] [phone] PCP - General Family Medicine 07/24/21 Claudia Sarah Oiler [employer] GreaserParts Product Analyst 02/24/24 documented as of this encounter
--- OUTSIDE RECORDS SUMMARY | 2025-01-14 16:04 | XMS_ITS | Clinical Summary ---
Author Organization [facility] Address [address] [place] [address] Phone Care Team Providers Care Hand Alterations Seamstress Name Role Phone Physician, Pcp Unknown Primary Care Provider Alisha vailable Allergies No known active allergies Medications EPINEPHrine (EPIPEN) 0.3 mg/0.3 mL injection Inject 0.3 mL (0.3 mg total) into the thigh if needed for anaphylaxis. 1 each 5 Active predniSONE (DELTASONE) 20 mg tablet Take 2 tablets (40 mg total) by mouth 1 (one) time each day for 5 days. See instructions. 10 tablet 5 12/17/19 25 famotidine (PEPCID) 20 mg tablet Take 1 tablet (20 mg total) by mouth 2 (two) times a day for 7 days. 14 each 5 12/19/19 25 nystatin (MYCOSTATIN) 100,000 unit/mL suspension Take 5 mL by mouth 4 (four) times a day for 10 days. 200 mL 5 12/22/19 25 clotrimazole (LOTRIMIN) 1 % vaginal cream Insert 1 applicator into the vagina at bedtime for 7 days. 45 g 5 12/19/19 25 Encounters Date Type Department Care Team Description 12/11/2024 3:22 AM EDT - 12/11/2024 9:21 AM EDT Emergency [facility] Emergency [address] [place] [address] Tongue pain (Primary Dx); Thrush; Angioedema, initial encounter Discharge Disposition: Home or Self Care from Last 3 Months Social History Tobacco Use Types Packs/Day Years Used Date Smoking Tobacco: Never Assessed Comments Unknown Sex and Gender Information Value Date Recorded Sex Assigned at Female 12/11/2024 3:39 AM EDT Legal Sex Female 7:32 PM EST Gender Identity Female 12/11/2024 3:39 AM EDT Sexual Orientation Straight 12/11/2024 3: 39 AM EDT Last Filed Vital Signs Vital Sign Reading Time Taken Comments Blood Pressure 114/65 12/11/2024 7:54 AM EDT Pulse 90 12/11/2024 7:54 AM EDT Temperature 36.8 ??C (98.2 ??F) 12/11/2024 4:51 AM ED T Respiratory Rate 19 12/11/2024 7:54 AM EDT Oxygen Saturation 100% 12/11/2024 7:54 AM EDT Inhaled Oxygen Concentration - - Weight 56.7 kg (125 lb) 12/11/2024 5:40 AM EDT Height 165.1 cm (5' 5 ) 12/11/2024 5:40 AM EDT Body Mass Index 20.8 12/11/2024 5:40 AM EDT Plan of Treatment Health Maintenance Due Date Last Done Comments Meningococcal B Vaccine (1 of 2 - Standard) 2018 Social Influencers of Health Screening 08/21/2022 COVID-19 Vaccine ( - season) 2024 12/13/2022, 12/25/2021, 12/03/2021 DTaP,Tdap,and Td Vaccines (7 - Td or Tdap) 07/04/2024 07/04/2014, 05/24/2006, 06/02/2004, Additional history exists Depression Screening 11/17/2024 11/18/2023 Influenza Vaccine (Season Ended) 2025 06/20/2023, 06/09/2022, 08/10/2019, Additional history exists Gonorrhea/Chlamydia Screening 11/29/2025 11/29/2024 Cervical Cancer Screening: Pap Smear 10/10/2026 10/10/2023 Pneumococcal Vaccine: Pediatrics (0 to 5 Years) and At-Risk Patients (6 to 64 Years) Aged Out 07/11/2003, 06/11/2003, 05/09/2003 No longer eligible based on patient's age to complete this topic HIB Vaccines Completed 06/02/2004, 04/20, 2002, Additional history exists IPV Vaccines Completed 05/24/2006, 04/20, 2002, Additional history exists MMR Vaccines Completed 05/24/2006, 06/11/2003 Varicella Vaccines Completed 09/30/2008, 04/28/2005 HPV Vaccines Completed 01/07/2015, 08/19, 07/04/2014 Hepatitis A Vaccines Completed 06/01/2017, 01/02/20 16 Hepatitis B Vaccines Completed 07/21/2018, 06/11/2003, 05/09/2003, Additional history exists Meningococcal ACWY Vaccine Completed 07/21/2018, HIV Screening Completed 11/29/2024 Hepatitis C Screening Completed 11/29/2024 RSV Immunization Patients Under 20 months Aged Out No longer eligible based on patient's age to complete this topic Insurance MEDICAID - [place] Care Teams Hand Alterations Seamstress Relationship Specialty Start Date End Date Physician, Pcp Unknown PCP - General 12/11/24
--- OUTSIDE RECORDS SUMMARY | 2025-01-14 16:05 | XMS_ITS | Encounter Summary ---
Author Organization [employer] Address [address] [facility] 7t [place] [address] Care Team Providers Care Fuller Brush Worker Name Role Phone Shannon Wade Primary Care Provider [phone] Reason for Visit * Reason Onset Date Comments Appointment Request 07/03/2024 Encounter Details Date Type Department Care Team ([facility] st Contact Info) Description 07/03/2024 Telephone [facility] MEDICINE [address] [place] [address] Shannon Wade FNP [address] [place] [address] Appointment Request Social History Tobacco Use Types [...] Description 01/22/2025 10:30 AM EDT Office Visit [facility] [address] [place] [address] Kojo Burns [address] [place] [address] 04/08/2025 10:00 AM EDT Office Visit [facility] [address] [place] [address] Alexis Medina 04/22/2025 9:00 AM EDT Office Visit [facility] [address] [place] [address] Shannon Wade FNP [address] [place] [address] documented as of this encounter Visit Diagnoses Not on filedocumented in this encounter Additional Health Concerns Assessment Noted Time PHQ-9 Depression Total Score: 25 024 3:37 PM EST documented as of this encounter Care Teams Fuller Brush Worker Relationship Specialty Start Date End Date Shannon Wade FNP [address] [place] [address] PCP - General Family Medicine 07/24/21 Claudia Sarah Tomato Paste MakerChannel Cementer Insole Machine 02/24/24 documented as of this encounter
--- OUTSIDE RECORDS SUMMARY | 2025-01-14 16:05 | XMS_ITS | Encounter Summary ---
Author Organization [employer] Address [address] [facility] 7t [place] [address] Care Team Providers Care Operater Name Role Phone Shannon Wade Primary Care Provider [phone] Bucky Mccray Unavailable Unavailable Kyra Forte RN Unavailable [phone] Encounter Details Date Type Department Care Team ([facility] Contact Info) Description 01/18/2024 Orders Only [facility] CHC MED & PEDS [address] [place], [place] [phone] Shannon Wade FNP [address] [place] [address] Social History Tobacco Use Types Packs/Day Years [...] Description 01/22/2025 10:30 AM EDT Office Visit [facility]ULT D[facility] [address] [place] [address] oKjo Burns [address] [place] [address] 04/08/2025 10:00 AM EDT Office Visit [facility] ADULT D[facility] [address] [place] [address] Alexis Medina 04/22/2025 9:00 AM EDT Office Visit [facility] MED & PEDS [address] [place] [address] Shannon Wade FNP [address] [place] [address] documented as of this encounter Visit Diagnoses Not on filedocumented in this encounter Additional Health Concerns Assessment Noted Time PHQ-9 Depression Total Score: 25 024 3:37 PM EST documented as of this encounter Care Teams Operater Relationship Specialty Start Date End Date Shannon Wade FNP [address] [place] [address] PCP - General Family Medicine 07/24/21 Bucky Mccray Community Health Worker 01/06/24 03/28/24 Kyra Forte RN [address] [place] [address] Latex Foam Worker 02/21/24 03/28/24 Claudia Sarah Latex Foam WorkerBean Dumper 02/24/24 documented as of this encounter
--- OUTSIDE RECORDS SUMMARY | 2025-01-14 16:05 | XMS_ITS | Encounter Summary ---
Author Organization [employer] Address [address] [facility] 7t [place] [address] Care Team Providers Care Youth Leader Name Role Phone Shannon Wade Primary Care Provider [phone] Bucky Mccray Unavailable Unavailable Kyra Forte RN Unavailable [phone] Reason for Visit * Reason Onset Date Comments Care Coordination 03/19/2024 [facility] program g raduation Encounter Details Date Type Department Care Team ([facility] Contact Info) Description 03/19/2024 Telephone [facility] CHC MED & PEDS [address] [place], [place] [phone] Shannon Wade FNP [address] [place], [place] [phone] Care Coordination ([facility] program graduation) Social History Tobacco Use Types [...] provided on Walk-In Urgent Care located in [facility] of [facility]. Patient provided with after-hours line for [facility], , which offer night time triage service and option to transfer to convex grinder operator provider if needed. CM discussed with the [...] 3:43 PM EDT T/C to Claudia on [phone] for below message, No answer. LVM to call back on [phone]. Please review and advise for below request. * Telephone Encounter - Josefa Murray - 03/19/2024 11:30 AM EDT Tc from [facility] with [facility] calling to inform pt was advised by ENT to request an urgent letter for pt to be able to get seen sooner . States was offered an appt for next year and pt believes isto far out .Any question please contact phone # [phone]. documented in this encounter Plan of Treatment Upcoming Encounters Date Type Department Care Team (Late st Contact Info) Description 01/22/2025 10:30 AM EDT Office Visit [facility] [address] [place] [address] Kojo Burns [address] [place] [address] 04/08/2025 10:00 AM EDT Office Visit [facility] ADULT DENTAL [address] [place], [place] [phone] Alexis Medina 04/22/2025 9:00 AM EDT Office Visit [facility] MED & PEDS [address] [place] [address] Shannon Wade FNP [address] [place] [address] documented as of this encounter Visit Diagnoses Not on filedocumented in this encounter Additional Health Concerns Assessment Noted Time PHQ-9 Depression Total Score: 25 024 3:37 PM EST documented as of this encounter Care Teams Youth Leader Relationship Specialty Start Date End Date Shannon Wade FNP [address] [place] [address] PCP - General Family Medicine 07/24/21 Bucky Mccray Community Health Worker 01/06/24 03/28/24 Kyra Forte, RN [address] [place] [address] Wolf Hunter 02/21/24 03/28/24 Claudia Sarah Wolf HunterManager Pipeline 02/24/24 documented as of this encounter
--- OUTSIDE RECORDS SUMMARY | 2025-01-14 16:05 | XMS_ITS | Encounter Summary ---
Author Organization [employer] Address [address] [facility] [address] 7t [place] [address] Care Team Providers Care Tour Director Name Role Phone Shannon Wade Primary Care Provider [phone] Bucky Mccray Unavailable Unavailable Kyra Forte RN Unavailable [phone] Reason for Visit * Reason Onset Date Comments Letter for School/Work 07/01/2023 Encounter Details Date Type Department Care Team ([facility] st Contact Info) Description 07/01/2023 Telephone [facility] MEDICINE [address] [place] [address] Shannon Wade FNP [address] [place], [place] [phone] Letter for School/Work Social History Tobacco Use [...] at encounter 06/20/23, but those are from [facility] ED visit on 06/09/23 which I had already addressed with pt during visit 06/20/23. I believe Monica is talking about a new ED eval. * Telephone Encounter - Jazzy Rodas RN - 07/08/2023 9:45 AM EDT TC to pt- no answer. LM to RC. Ortega, the [facility] ED notes are scanned in .2.23 in [...] now asymptomatic. Any questions, contact pt at [phone] documented in this encounter Plan of Treatment Upcoming Encounters Date Type Department Care Team (Late st Contact Info) Description 01/22/2025 10:30 AM EDT Office Visit [facility] ADULT [facility] [address] [place] [address] Kojo Burns [address] [place] [address] 04/08/2025 10:00 AM EDT Office Visit [facility] ADULT D[facility] [address] [place] [address] Alexis Medina 04/22/2025 9:00 AM EDT Office Visit [facility] MED & PEDS [address] [place] [address] Shannon Wade FNP [address] [place] [address] documented as of this encounter Visit Diagnoses Not on filedocumented in this encounter Care Teams Tour Director Relationship Specialty Start Date End Date Shannon Wade FNP [address] [place] [address] PCP - General Family Medicine 07/24/21 Bucky Mccray Community Health Worker 01/06/24 03/28/24 Kyra Forte RN [address] [place] [address] White Kid Buffer 02/21/24 03/28/24 Claudia Sarah White Kid BufferAutomotive Professional 02/24/24 documented as of this encounter
--- OUTSIDE RECORDS SUMMARY | 2025-01-14 16:05 | XMS_ITS | Encounter Summary ---
Author Organization [employer] Address [address] [facility] 7t [place] [address] Care Team Providers Care Transit Clerk Name Role Phone Shannon Wade Primary Care Provider Bucky Mccray Unavailable Unavailable Kyra Forte RN Unavailable [phone] Reason for Visit * Reason Onset Date Comments Nurse Triage 10/26/2023 Encounter Details Date Type Department Care Team (Late st Contact Info) Description 10/26/2023 Telephone [facility] MEDICINE [address] [place] [address] Shannon Wade FNP [address] [place] [address] Nurse Triage Social History Tobacco Use Types [...] doesn'twork with metal fabrication , 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 Pt doesn't remember splash or anything entering eye at that time. Pt right eye is fine and needs to wear contact to see. Pt is advised to come to [facility] today to be seen by provider. Pt [...] Description 01/22/2025 10:30 AM EDT Office Visit [facility] ADULT DENTAL [address] [place] [address] Katy Nathaliededrick [address] [place] [address] 04/08/2025 10:00 AM EDT Office Visit [facility] ADULT DENTAL [address] [place] [address] Alexis Medina 04/22/2025 9:00 AM EDT Office Visit [facility] MED & PEDS [address] [place] [address] Shannon Wade FNP [address] [place] [address] documented as of this encounter Visit Diagnoses Not on filedocumented in this encounter Additional Health Concerns Assessment Noted Time PHQ-9 Depression Total Score: 27 023 10:47 AM EST documented as of this encounter Care Teams Transit Clerk Relationship Specialty Start Date End Date Shannon Wade FNP [address] [place] [address] PCP - General Family Medicine 07/24/21 Bucky Mccray Community Health Worker 01/06/24 03/28/24 Kyra Forte, MARQUEZ [address] [place] [address] Licensed Reactor Operator 02/21/24 03/28/24 Claudia Sarah Licensed Reactor OperatorDuplex Trimmer 02/24/24 documented as of this encounter
--- OUTSIDE RECORDS SUMMARY | 2025-01-14 16:05 | XMS_ITS | Encounter Summary ---
Author Organization [employer] Address [address] [facility] [address] [place] [address] Care Team Providers Care Leather Sprayer Name Role Phone Shannon Wade MOBILE UI DESIGNER Primary Care Provider [phone] Encounter Details Date Type Department Care Team (Latest Contact Info) Description 01/14/2025 Travel Social History Tobacco Use Types Packs/Day [...] housing situation today? I have mau corrales 01/14/[address] you [...] Description 01/22/2025 10:30 AM EDT Office Visit [facility] ADULT DENTAL [address] [place] [address] Burns Nathaliededrick [address] [place] [address] 04/08/2025 10:00 AM EDT Office Visit [facility] ADULT DENTAL [address] [place] [address] Alexis Medina 04/22/2025 9:00 AM EDT Office Visit [facility] MED & PEDS [address] [place] [address] Shannon Wade FNP [address] [place] [address] documented as of this encounter Visit Diagnoses Not on filedocumented in this encounter Additional Health Concerns Assessment Noted Time PHQ-9 Depression Total Score: 19 025 11:01 AM EDT documented as of this encounter Care Teams Leather Sprayer Relationship Specialty Start Date End Date Shannon Wade FNP [address] [place] [address] PCP - General Family Medicine 07/24/21 Claudia Sarah Railroad Police OfficerAdvertising Assistant 02/24/24 documented as of this encounter
--- OUTSIDE RECORDS SUMMARY | 2025-01-14 16:05 | XMS_ITS | Encounter Summary ---
Author Organization [employer] Address [address] [facility] 7t [place] [address] Care Team Providers Care Sewer Separation Designer Name Role Phone Shannon Wade Primary Care Provider Bucky Mccray Unavailable Unavailable Kyra Forte RN Unavailable [phone] Reason for Visit * Reason Onset Date Comments ER Follow-up 12/14/2023 Encounter Details Date Type Department Care Team (Late st Contact Info) Description 12/14/2023 Telephone [facility] MEDICINE [address] [place] [address] Shannon Wade FNP [address] [place] [address] ER Follow-up Social History Tobacco Use Types [...] this call. Pt reports was seen in [facility] 12/11/23, report is on the chart. Pt [...] CORKY Lucia 12/20/23 @ 245pm in the [facility] office on [address]. Pt is made aware this apt in [facility] building. Pt agrees with disposition, will return [...] become worse * Telephone Encounter - Rehan Pritchett - 12/14/2023 2:05 PM EDT Patient calling to report ED visit on : Date: 12/11/23 Hospital: [facility] Seen for: Menstrual Bleeding Pt stated symptoms seem to be worsening Symptom: Vaginal Bleeding - Not Outcome: Transfer to a nurse or provider NOW! Reason: Can't stand (unless normally can't stand) documented in this encounter Plan of Treatment Upcoming Encounters Date Type Department Care Team (Late st Contact Info) Description 01/22/2025 10:30 AM EDT Office Visit [facility] ADULT DENTAL [address] [place] [address] Kojo Burns [address] [place] [address] 04/08/2025 10:00 AM EDT Office Visit [facility] ADULT DENTAL [address] [place] [address] Alexis Medina 04/22/2025 9:00 AM EDT Office Visit [facility] MED & PEDS [address] [place] [address] Shannon Wade FNP [address] [place] [address] documented as of this encounter Visit Diagnoses Not on filedocumented in this encounter Additional Health Concerns Assessment Noted Time PHQ-9 Depression Total Score: 25 024 3:37 PM EST documented as of this encounter Care Teams Sewer Separation Designer Relationship Specialty Start Date End Date Shannon Wade FNP [address] [place] [address] PCP - General Family Medicine 07/24/21 Bucky Mccray Community Health Worker 01/06/24 03/28/24 Kyra Forte RN [address] [place] [address] Horticultural Nursery Assistant 02/21/24 03/28/24 Claudia Sarah Horticultural Nursery AssistantFirmware Test Engineer 02/24/24 documented as of this encounter
--- OUTSIDE RECORDS SUMMARY | 2025-01-14 16:05 | XMS_ITS | Encounter Summary ---
Author Organization [employer] Address [address] [facility] 7t [place] [address] Care Team Providers Care Product Designer Name Role Phone Shannon Wade Primary Care Provider [phone] Bucky Mccray Unavailable Unavailable Kyra Forte RN Unavailable [phone] Reason for Visit * Reason Onset Date Comments Referral 11/22/2023 Encounter Details Date Type Department Care Team ([facility] st Contact Info) Description 11/22/[address] [facility] MEDICINE [address] [place] [address] Shannon Wade FNP [address] [place] [address] Referral Social History Tobacco Use Types Packs/Day [...] PM EST Returned call to Joanne at [facility] regarding message below. Joanne informed that pt [...] 2:54 PM EST Tc from Joanne with [facility] requesting a referral for Phychiatric on behalf of patient due to pt informing she is not happy at her current one. Please contact Joanne @ [phone] documented in this encounter Plan of Treatment Upcoming Encounters Date Type Department Care Team (Late st Contact Info) Description 01/22/2025 10:30 AM EDT Office Visit [facility] ADULT DENTAL [address] [place] [address] Kojo Burns [address] [place] [address] 04/08/2025 10:00 AM EDT Office Visit [facility] ADULT DENTAL [address] [place] [address] Jan Medinaouard 04/22/2025 9:00 AM EDT Office Visit [facility] MED & PEDS [address] [place] [address] Shannon Wade FNP [address] [place] [address] documented as of this encounter Visit Diagnoses Not on filedocumented in this encounter Additional Health Concerns Assessment Noted Time PHQ-9 Depression Total Score: 25 024 3:37 PM EST documented as of this encounter Care Teams Product Designer Relationship Specialty Start Date End Date Shannon Wade FNP [address] [place] [address] PCP - General Family Medicine 07/24/21 Bucky Mccray Community Health Worker 01/06/24 03/28/24 Kyra Forte RN [address] [place] [address] Trade Analyst 02/21/24 03/28/24 Claudia Sarah Trade AnalystFacing Slitter 02/24/24 documented as of this encounter
--- OUTSIDE RECORDS SUMMARY | 2025-01-14 16:05 | XMS_ITS | Encounter Summary ---
Author Organization [employer] Address [address] [facility] 7t [place] [address] Care Team Providers Care Concrete Block Maker Name Role Phone Shannon Wade Primary Care Provider [phone] Reason for Visit * Reason Comments Care Coordination CHW outreach for SDO H-patient declined to participate Encounter Details Date Type Department Care Team (Latest Contact Info) Description 01/14/2025 Patient Outreach [facility] MEDICINE [address] [place] [address] Shannon Wade FNP [address] [place] [address] Care Coordination ([facility] outreach for SDOH-patient declined to participate ) Social History Tobacco Use Types Packs/Day Years [...] as of this encounter Progress Notes * Chris Coreas - 01/14/2025 1:27 PM EDT CHW Chris Coreas, placed outbound call to patient for assistance with SDOH as a referral was received by the provider. Patient's name, and Address was confirmed. Program information was provided to the patient. Patient declined to participate in program. Provided patient with direct contact information for future reference. documented in this encounter Plan of Treatment Upcoming Encounters Date Type Department Care Team ([facility] st Contact Info) Description 01/22/2025 10:30 AM EDT Office Visit [facility] AD[facility] [address] [place] [address] Katy Nathaliededrick [address] [place] [address] 04/08/2025 10:00 AM EDT Office Visit [facility] AD[facility] [address] [place] [address] Alexis Medina 04/22/2025 9:00 AM EDT Office Visit [facility] MED & PEDS [address] [place] [address] Shannon Wade FNP [address] [place] [address] documented as of this encounter Visit Diagnoses Not on filedocumented in this encounter Additional Health Concerns Assessment Noted Time PHQ-9 Depression Total Score: 19 01/14/ 025 11:01 AM EDT documented as of this encounter Care Teams Concrete Block Maker Relationship Specialty Start Date End Date Shannon Wade FNP [address] [place] [address] PCP - General Family Medicine 07/24/21 Claudia Sarah Policy AnalystQuality Lab Assoc 02/24/24 documented as of this encounter
--- OUTSIDE RECORDS SUMMARY | 2025-01-14 16:05 | XMS_ITS | Encounter Summary ---
Author Organization [employer] Address [address] [facility] 7t [place] [address] Care Team Providers Care Emergency Services Dispatcher Name Role Phone Shannon Wade Primary Care Provider [phone] Encounter Details Date Type Department Care Team ([facility] st Contact Info) Description 01/14/2025 10:30 AM EDT [facility] [address] [place], [place] [phone] Shannon Wade FNP [address] [place], [place] [phone] Encounter for routine history and physical examination of adult (Primary Dx); Bipolar 1 disorder (CMS/HCC); Uterine bleeding, dysfunctional; Encounter for immunization Social History Tobacco Use Types Packs/Day Years [...] your housing situation today? I have mau sing 01/14/[address] you li [...] Mass Index 19.55 01/14/2025 10:36 AM EDT documented in this encounter Patient Instructions * Patient Instructions* LEN Rutherford - 01/14/2025 10:30 AM EDT Referral for ENT at [facility] will be placed. Please let us know if you have not received communication from them within 2-3 weeks Please call for a follow up appointment: [facility]. documented in this encounter Plan of Treatment Upcoming Encounters Date Type Department Care Team (Late st Contact Info) Description 01/22/2025 10:30 AM EDT Office Visit [facility] [address] [place] [address] Kojo Burns [address] [place] [address] 04/08/2025 10:00 AM EDT Office Visit [facility] [address] [place] [address] Alexis Medina 04/22/2025 9:00 AM EDT Office Visit [facility] [address] [place] [address] Shannon Wade, ENVIRONMENTAL HEALTH TECHNOLOGIST [address] [place] [address] Scheduled Orders Name Type Priority Associated Diagnoses Orde r Schedule DUSTIN Screen,IFA, with Reflex to Titer and Pattern Lab Routine Encounter for routine history and physical examination of adult Expected: 01/14/2025 (Approximate), Expires: 01/14/2026 Ramses-Bland Virus Antibody Panel Lab Routine Encounter for routine history and physical examination of adult Expected: 01/14/2025 (Approximate), Expires: 01/14/2026 Chlamydia/N. Gonorrhoeae RNA, TMA, Urogenitial Microbiology Routine Encounter for routine history and physical examination of adult Expected: 01/14/2025, Expires: 01/14/2026 Hepatitis C Viral RNA, Quantitative, Real-Time PCR Lab Routine Encounter for routine history and physical examination of adult Expected: 01/14/2025 (Approximate), Expires: 01/14/2026 RPR (Monitor) with Reflex to??Titer Lab Routine Encounter for routine history and physical examination of adult Expected: 01/14/2025 (Approximate), Expires: 01/14/2026 HIV-1/2 Antigen and Antibodies, Fourth Generation, with Reflexes Lab Routine Encounter for routine history and physical examination of adult Expected: 01/14/2025 (Approximate), Expires: 01/14/2026 documented as of this encounter Procedures Procedure Name Priority Date/Time Associated Diagnosis Comments VITAMIN D,25-OH,TOTAL,IA Routine 01/14/2025 1:31 PM EDT [...] routine history and physical examination of adult PROTHROMBIN TIME-INR Routine 01/14/2025 1:31 PM EDT [...] routine history and physical examination of adult documented in this encounter Results * (ABNORMAL) Prothrombin Time-INR (01/14/2025 1:31 PM EDT) Prothrombin Time 12.5(H) 10.9 - 12.4 SEC [facility] INTERNATIONAL NORM RATIO 1.1 0.9 - 1.1 [facility] Comment:INTERNATIONAL NORMAL IZED RATIO (INR) [...] EDT 01/14/2025 1:59 PM EDT Shannon Wade ENVIRONMENTAL HEALTH TECHNOLOGIST LAB BLOOD ORDERABLES Final Res ult Performing Organization Address [facility] Co de Phone Number [facility] [address] [place] [phone] * TSH W/Reflex to FT4 (01/14/2025 1:31 PM EDT) TSH reflex Free T4 0.92 0.32 - 4.0 uIU/mL [facility] Blood Venous blood specimen / Unknown 01/14/2025 1:31 PM EDT 01/14/2025 1:59 PM EDT Shannon Phalmonica ENVIRONMENTAL HEALTH TECHNOLOGIST LAB BLOOD ORDERABLES Final Res ult Performing Organization Address [facility] Co de Phone Number [facility] [address] [place] [phone] * Vitamin B12/Folate, Serum Panel (01/14/2025 1:31 PM EDT) Vitamin B12 483 200 - 900 pg/mL [facility] Comment:NORMAL 200-900 PG/ML INDETERMINATE 160-199 PG/ML DEFICIENT < 160 PG/ML Folate >20.0 > or = 4.0 ng/mL [facility] Comment:Reference Values:> o r = 4.0 ng/mL< 4.0 ng/mL suggests folate deficiency Methotrexate, aminopterin and folinic acid(leucovorin) are chemotherapeutic agents whose molecularstructures are similar to folate; therefore, the Architectfolate assay cannot be used for patients using these drugs. Blood Venous blood specimen / Unknown 01/14/2025 1:31 PM EDT 01/14/2025 1:59 PM EDT Shannon Wade [facility] LAB BLOOD ORDERABLES Final Res ult Performing Organization Address [facility]/ZIP Co de Phone Number [facility] [address] [place] [address] [phone] * Vitamin D, 25-Hydroxy, Total, Immunoassay (01/14/2025 1:31 PM EDT) Vitamin D 25-OH Total 33.1 >30 ng/mL [facility] Comment: Health Based Reference Values*< 20 ??ng/mL ??Ofbpvfsfy32-76 ng/mL ??Insufficient> 30 ??ng/mL ??Sufficient*Alan CORONEL. N [...] EDT 01/14/2025 1:59 PM EDT Shannon Wade [facility] LAB BLOOD ORDERABLES Final Res ult Performing Organization Address [facility]/ZIP Co de Phone Number [facility] [address] [place] [phone] * (ABNORMAL) CBC auto differential (01/14/2025 1:31 PM EDT) White Blood Count 7.4 4.8 - 10.8 X10*3/uL [facility] Red Blood Count 3.95(L) 4.20 - 5.50 X10*6/uL [facility] Hemoglobin 12.8 12.0 - 16.0 g/dl [facility] Hematocrit 37.2 37.0 - 47.0 % [facility] Mean Corpuscular Volume 94.2 80.0 - 98.0 fL [facility] Mean Corpuscular Hemoglobin 32.4 27.0 - 33.0 pg [facility] Mean Corpuscular HGB Conc 34.4 31.0 - 35.0 g/dl [facility] Red Cell Distribution Width 13.0 11.0 - 16.0 % [facility] Platelet Count 201 160 - 400 X10*3/uL [facility] Mean Platelet Volume 10.9 9.4 - 12.3 fL [facility] Neutrophils Percent Auto 70.8 45 - 73 % [facility] Imm Gran Pct Auto 0.4 0.0 - 0.4 % [facility] Lymphocytes Percent Auto 21.0 20 - 40 % [facility] Monocytes Percent Auto 6.2 2 - 11 % [facility] Eosinophils Percent Auto 0.9 0 - 4 % [facility] Basophils Percent Auto 0.7 0 - 2 % [facility] NRBC Pct Auto 0.0 0.0 - 0.2 /100WBC [facility] Neutrophils Absolute Auto 5.3 2.0 - 8.3 x10*3/uL [facility] Imm Gran Abs Auto 0.03 0.00 - 0.03 X10*3/uL [facility] Lymphocytes Absolute Auto 1.6 1.2 - 4.9 X10*3/uL [facility] Monocytes Absolute Auto 0.5 0.1 - 1.2 X10*3/uL [facility] Eosinophils Absolute Auto 0.1 0.0 - 0.4 X10*3/uL [facility] Basophils Absolute Auto 0.1 0.0 - 0.2 X10*3/uL [facility] NRBC Abs Auto 0.000 0.0 - 0.012 X10*3/uL [facility] Blood Venous blood specimen / Unknown 01/14/2025 1:31 PM EDT 01/14/2025 1:59 PM EDT us Shannon Wade ENVIRONMENTAL HEALTH TECHNOLOGIST LAB BLOOD ORDERABLES Final Res ult [facility] [address] [place] [phone] * Comprehensive Metabolic Panel (01/14/2025 1:31 PM EDT) Sodium 139 135 - 145 mmol/L [facility] Potassium 3.9 3.3 - 5.1 mmol/L [facility] Chloride 105 96 - 108 mmol/L [facility] Carbon Dioxide 25 22 - 29 mmol/L [facility] Anion Gap 13 12 - 20 [facility] Urea Nitrogen (BUN) 12 9 - 16 mg/dL [facility] Creatinine, Serum 0.71 0.5 - 1.4 mg/dL [facility] Estimated Glomerular Filt Rate >60 [facility] Comment:Chronic Kidney Disea se: Estimated GFR < 60 mL/min/1.34r2Gddory Kidney Disease: Estimated GFR < 15 mL/min/1.73m2 Glucose 83 60 - 115 mg/dL [facility] Calcium 10.0 8.4 - 10.2 mg/dL [facility] Bilirubin, Total 0.6 0.0 - 1.0 mg/dL [facility] Aspartate Amino Transferase 19 5 - 31 U/L [facility] Alanine Aminotransferase 15 0 - 31 U/L [facility] Total Protein 7.3 6.5 - 8.0 g/dL [facility] Albumin Level 4.4 3.5 - 5.0 g/dL [facility] Alkaline Phosphatase 47 39 - 117 U/L [facility] Blood Venous blood specimen / Unknown 01/14/2025 1:31 PM EDT 01/14/2025 1:59 PM EDT Shannon Wade ENVIRONMENTAL HEALTH TECHNOLOGIST LAB BLOOD ORDERABLES Final Res ult Performing Organization Address [facility] Co de Phone Number [facility] [address] [place] [phone] * Sed Rate by Modified Tyrelergren (01/14/2025 1:31 PM EDT) Erythrocyte Sedimentation Rate 5 0 - 20 MM/HR [facility] Comment:Patients with polycy themia and many hemoglobin abnormalitiesmay have depressed sed rates whereas patients with anemiamay have elevated sed rates. Blood Venous blood specimen / Unknown 01/14/2025 1:31 PM EDT 01/14/2025 1:59 PM EDT Shannon Wade ENVIRONMENTAL HEALTH TECHNOLOGIST LAB BLOOD ORDERABLES Final Res ult Performing Organization Address [facility] Co de Phone Number [facility] [address] [place] [phone] * C-reactive Protein (01/14/2025 1:31 PM EDT) Pathologist [facility] C Reactive Protein <0.10 < or = 0.50 mg/dL [facility] Blood Venous blood specimen / Unknown 01/14/2025 1:31 PM EDT 01/14/2025 1:59 PM EDT us Shannon Wade ENVIRONMENTAL HEALTH TECHNOLOGIST LAB BLOOD ORDERABLES Final Res ult Performing Organization Address [facility] Co de Phone Number [facility] [address] [place] [phone] * Rheumatoid Factor (01/14/2025 1:31 PM EDT) Rheumatoid Factor <13.0 <15.0 IU/mL [facility] Blood Venous blood specimen / Unknown 01/14/2025 1:31 PM EDT 01/14/2025 1:59 PM EDT us Shannon HARRINGTON LAB BLOOD ORDERABLES Final Res ult [facility] [address] [place] [address] [phone] documented in this encounter Visit Diagnoses Diagnosis Encounter for routine history and physical examination of adult- Primary Bipolar 1 disorder (CMS/HCC) Uterine bleeding, dysfunctional Encounter for immunization documented in this encounter Additional Health Concerns Assessment Noted Time PHQ-9 Depression Total Score: 19 025 11:01 AM EDT documented as of this encounter Care Teams Emergency Services Dispatcher Relationship Specialty Start Date End Date Shannon Wade FNP [address] [place] [phone] PCP - General Family Medicine 07/24/21 Claudia Sarah Blacksmith ApprenticeTax Compliance Representative 02/24/24 documented as of this encounter
--- OUTSIDE RECORDS SUMMARY | 2025-01-14 16:05 | XMS_ITS | Encounter Summary ---
Author Organization [employer] Address [address] [facility] 7t [place] [address] Care Team Providers Care Coater Carbon Paper Name Role Phone Shannon Wade Primary Care Provider [phone] Bucky Mccray Unavailable Unavailable Kyra Forte RN Unavailable [phone] Reason for Visit * Reason Onset Date Comments Med Refill 11/22/2023 Encounter Details Date Type Department Care Team ([facility] st Contact Info) Description 11/22/2023 Telephone [facility] & PEDS [address] [place], [place] [phone] Shannon Wade FNP [address] [place] [address] Med Refill Social History Tobacco Use Types [...] 500 MG tablet To be sent to: [facility]/pharmacy #[id number] [place] [address] documented in this encounter Plan of Treatment Upcoming Encounters Date Type Department Care Team (Late st Contact Info) Description 01/22/2025 10:30 AM EDT Office Visit [facility] ADULT DENTAL [address] [place] [address] Kojo Burns [address] [place], [place] 04/08/2025 10:00 AM EDT Office Visit [facility] ADULT DENT[facility] [address] [place] [address] Alexis Medina 04/22/2025 9:00 AM EDT Office Visit [facility] [address] [place], [place] [phone] Shannon Wade FNP [address] [place], [place] documented as of this encounter Visit Diagnoses Not on filedocumented in this encounter Additional Health Concerns Assessment Noted Time PHQ-9 Depression Total Score: 25 024 3:37 PM EST documented as of this encounter Care Teams Coater Carbon Paper Relationship Specialty Start Date End Date Shannon Wade FNP [address] [place] [address] PCP - General Family Medicine 07/24/21 Bucky Mccray Community Health Worker 01/06/24 03/28/24 Kyra Forte RN [address] [place] [address] Buggy Loader 02/21/24 03/28/24 Claudia Sarah Buggy LoaderMap Clerk 02/24/24 documented as of this encounter
--- OUTSIDE RECORDS SUMMARY | 2025-01-14 16:05 | XMS_ITS | Data Portability ---
Author Organization [place] - [facility], Allergy Address [address] [address] Assessment Encounter Date Assessment Date Assessment LastModified [...] CT, maxillofa cial, w/o contrast 2024 025 [place] [facility], [facility], [address], [address], 10/03/2024 13:30:58 Medication Orders azelastin e 137 mcg (0.1 %) nasal spray 2024 025 [place] [id number], [address] [place], [address], 11/05/2024 12:11:34 Patient TargetsNo targets recorded. Patient InstructionsNo instructions recorded. Reason for Referral None Reported. Results Created Date Observation Date Name Description Value Unit Range Abnormal Flag Note LastModifiedBy Organization Detail LastModifiedTime 10/03/19 25 10/02/2024 CT, maxil lofac ial, w/o contr ast No observ ation record ed. [place] [facility] [address], [address], 10/03/2024 18:37:43 Result Notes None recorded. Problems Name Problem SNOMED Code Status Onset Date Resolution Date Notes Provider Name and Address Organization Details Recorded Time Deviated nasal septum 751226456 Active 2021 Deviated nasal septum; Note: Date Diagnosed: 06/15/2022 9:16 AM (J34.2) Not Available [facility] 4 02:13:35 Hypertrop hy of nasal turbinate s 78418013 Active 2021 Hypertroph y of nasal turbinates ; Note: Date Diagnosed: 06/17/2022 5:16 PM (J34.3) Not Available [facility] 4 02:13:46 Follow-up visit Active 2021 Medical surveillan ce following completed treatment; Note: Date Diagnosed: 08/31/2022 9:17 AM (Z09) Not Available [facility] 4 02:14:41 Cervical lymphaden opathy 361173646 Active 2021 Enlarged lymph nodes, unspecifie d; Note: Date Diagnosed: 01/05/2022 12:26 PM (R59.9) Not Available [facility] 4 02:13:46 Nasal congestio n 03017653 Active 2024 LORI SALINAS MD [address] [place] [address],[place] [address], [address] , [place] - [facility] 5 09:23:02 Obstructi ve sleep apnea syndrome 45511217 Active 2024 LORI SALINAS MD [address] [place] [address],[place] [address], Say[place] sinha, [place], [address] , [place] - [facility] 5 09:23:08 Chronic sinusitis 66522343 Active 2024 LORI SALINAS MD [address] [place] [address],[place] [address], [place], [address] , [place] [facility] 5 09:23:26 Nasal obstructi on 834804742 Active 2024 SABAS ALVARENGA MD [address] [place] [address],[place] [address], [address] , [place] [facility] 5 12:10:43 Generaliz ed anxiety disorder 03898163 Active 2024 SABAS ALVARENGA MD [address] [place] [address],[place] [address], [address] , [facility] - [facility] 5 12:42:55 Problem Notes None recorded. Procedures Surgical History None recorded. Imaging Results Imaging Date Name Status LastModified by Organiz ation Details LastModified Time 10/02/2024 CT, maxillofacial , w/o contrast completed [place] [facility] [address], [place], [address], 10/03/2024 18:37:43 Procedure Notes None recorded. Medical Equipment None Reported. Allergies Allergen ID Allergen Name Allergen Category Reaction Reaction Severity Criticality Documentation Date Start Date Code Code System Note Provider Name and Address Organization Details Recorded Time 15247 Red Dye food,medi cation hives Not available Not available 01/31/2024 07856 UNK React ion: Hives ; Not Available [facility] 4 00:49:30 Medications Name Sig Start Date [...] mg tablet 09/28 completed Medicati on ID: [id number] B rand Name: acetamin ophen Se nd Method: E-Prescr ibed Sub s Allowed: subs OK Speci al Instruct ion: TAKE 2 TABLETS BY MOUTH EVERY 4 HOURS Me dication GenericN carmen: acetamin ophen Not Available Not Available Not Available ibuprofen 800 mg tablet 11/05 completed Medicati on ID: [id number] B rand Name: ibuprofe n Send Method: E-Prescr ibed Sub s Allowed: subs OK Speci al Instruct ion: TAKE 1 TABLET BY MOUTH THREE TIMES A DAY WITH FOOD Med icationG enericNa me: ibuprofe n Not Available Not Available Not Available prazosin 1 mg capsule 09/28 completed Medicati on ID: [id number] B rand Name: prazosin Send Method: E-Prescr [...] a day 09/28 completed Medicati on ID: [id number] D uration Value: 7 Brand Name: amoxicil [...] e 137 mcg (0.1 %) nasal spray [place] 1 spray every day by intranas al [...] mg tablet 06/17 completed Medicati on ID: [id number] B rand Name: naproxen Send Method: E-Prescr ibed Sub s Allowed: subs OK Speci al Instruct ion: TAKE 1 TABLET BY MOUTH TWICE A DAY NEEDED FOR PAIN Med icationG enericNa me: naproxen Not Available Not Available Not Available oxycodone 5 mg tablet Take 1 tablet by mouth every six to eight hours as needed for pain 09/28 completed Medicati on ID: [id number] D uration Value: 5 Brand Name: oxycodon [...] extended release 09/28 completed Medicati on ID: [id number] B rand Name: bupropio n HCl Send [...] mg tablet 06/17 completed Medicati on ID: [id number] B rand Name: melatoni n Send Method: [...] Updated DateTime 09/28/2024 165.1 cm 20 kg/m2 41995.08 g Osvaldo Cristobal [facility] 09/28/2024 08:56:08 Date Recorded Body height Body mass index (BMI) Body weight Provider Name and Address Organization Details Last Updated DateTime 11/05/2024 165.1 cm 20.1 kg/m2 99561.68 g Norma Gaytan [facility] 11/05/2024 11:36:27 Social History None recorded. Functional Status None recorded. Mental Status None recorded. Family History Nothing Reported. Medical History No medical history recorded. Gynecological HistoryNo gynecological history recorded. Obstetrics History GPAL:G 0 P 0 0 0 0 Past Encounters Encounter ID Performer Location Encounter Start Date Encounter Closed Date Diagnosis/Indication Diagnosis SNOMED-CT Code Diagnosis ICD10 Code Diagnosis Note [id number] LORI SALINAS MD [facility] [address] [address] 09/28/2024 08:50:32 09/28/2024 09:26:05 Deviated nasal septum 346988673 J34.2 Nasal congestion 7159318 0 R09.81 Obstructiv e sleep apnea syndrome 41869295 G47.33 Chronic sinusitis 837258 00 J32.9 [id number] SABAS ALVARENGA MD [facility] [address] [address] 11/05/2024 11:30:22 11/05/2024 12:13:51 Nasal obstruction 936971775 J34.89 Deviated nasal septum 12 0361773 J34.2 Generalize d anxiety disorder 56361419 F41.1 Health Concerns Section Related Observation LastModified by Organization Detai ls LastModified Time None Recorded Concern Status LastModified by Organization Details LastModified Time None Recorded Advance Directives Directive None Recorded Payers Encounter Date Sequence Insurance Name Policy Number Policy Pineda Covered Member ID Pineda Member ID Guarantor Name 09/28/2024 1 [place] [facility] Lisa Seo [id number] Lisa Seo 11/05/2024 1 [place] [facility] Lisa Seo [id number] Lisa Seo Notes Date Note Type Note [...] Reports negative allergy evaluation in the past. [id number] LORI DE LA ROSA MD [address] [place] [address], [phone], [facility] - [facility] 09/28/2024 09:23:56 11/05/2024 text/html She reports difficulty [...] left anterior septal deviation. SABAS ALVARENGA MD [address] [place] [address], [place], [address], [facility] - [facility] 11/05/2024 12:44:36 OBGyn Episode No OBEpisode recorded.
--- OUTSIDE RECORDS SUMMARY | 2025-01-14 16:05 | XMS_ITS | Encounter Summary ---
Author Organization [employer] Address [address] [place] [address] Care Team Providers Care Nursing Home Assistant Name Role Phone Shannon Wade Primary Care Provider [phone] Bucky Mccray Unavailable Unavailable Kyra Forte RN Unavailable [phone] Encounter Details Date Type Department Care Team ([facility] Contact Info) Description 08/02/2023 Telephone [facility] MEDICINE [address] [place] [address] Shannon Wade FNP [address] [place] [address] Social History Tobacco Use Types Packs/Day Years [...] Visit [facility] ADULT D[facility] [address] [place] [address] Kojo Burns [address] [place] [address] 04/08/2025 10:00 AM EDT Office Visit [facility] [address] [place] [address] Alexis Medina 04/22/2025 9:00 AM EDT Office Visit [facility] [address] [place] [address] Shannon Wade FNP [address] [place] [address] documented as of this encounter Visit Diagnoses Not on filedocumented in this encounter Additional Health Concerns Assessment Noted Time PHQ-9 Depression Total Score: 23 023 9:59 AM EDT documented as of this encounter Care Teams Nursing Home Assistant Relationship Specialty Start Date End Date Shannon Wade FNP [address] [place] [address] PCP - General Family Medicine 07/24/21 Bucky Mccray Community Health Worker 01/06/24 03/28/24 Kyra Forte RN [address] [place] [address] Material Reclaimer 02/21/24 03/28/24 Claudia Sarah Material ReclaimerAcoustic Engineer 02/24/24 documented as of this encounter
[2025-01-15 08:29] LABS: HIV AB/AG Nonreactive (Nonreactive); HIV Num 1 0.05 S/CO (0.00-0.99)
[2025-01-15 09:54] LABS: EBV-VCA IgM Ab <36.00 U/mL
[2025-01-15 11:44] LABS: CT PCR NOT DETECTED (Not Detect.); NG PCR NOT DETECTED (Not Detect.)
[2025-01-15 11:47] LABS: Anti Nuclear Antibody Screen NEGATIVE (NEGATIVE); RPR Rapid Plasma Reagin NON-REACTIVE (NON-REACTIVE)
[2025-01-15 17:39] LABS: HCV Log PCR <1.18 NOT DETECTED Log IU/mL (NOT DETECTED); HepC Viral Load <15 NOT DETECTED IU/mL (NOT DETECTED)
== END 2025-01-14 13:30 | disposition home or self-care (01) ==
LOC: HO.CHCLDS 13:29
PROVIDERS: Visit Provider Registered Nurse
DX: Z00.00 Encounter for general adult medical examination without abnormal findings (principal)
CPT/HCPCS: 36415; 80053; 82306; 82607; 82746; 84443; 85025; 85610; 85652; 86038; 86140; 86431; 86592; 86664; 86665; 87389; 87491; 87522; 87591

== ENCOUNTER 2025-05-22 17:48 | Outpatient (REF) | payer MEDICAID, SELFPAY ==
--- OUTSIDE RECORDS SUMMARY | 2025-05-22 14:00 | XMS_ITS | Encounter Summary ---
Author Organization [employer] Address [address] [facility] 7t [place] [address] Care Team Providers Care Day Care Attendant Name Role Phone Shannon Wade CHANNEL WORKER Primary Care Provider [phone] Encounter Details Date Type Department Care Team ([facility] st Contact Info) Description 05/22/2025 2:00 PM EDT Office Visit [facility] CHC MED & PEDS [address] [place], [place] [id number] [facility] [address] [place] [address] Dysuria (Primary Dx); Cystitis Social History Tobacco Use Types Packs/Day Years [...] Sign Reading Time Taken Comments Blood Pressure 110/80 05/22/2025 3:27 PM EDT Pulse 65 05/22/2025 3:27 PM EDT Temperature 36.3 C (97.3 F) 05/22/2025 3:27 PM EDT Respiratory Rate 18 05/22/2025 3:27 PM EDT Oxygen Saturation 98% 05/22/2025 3:27 PM EDT Inhaled Oxygen Concentration - - Weight - - Height - - Body Mass Index - - documented in this encounter Progress Notes * [facility] - 05/22/2025 2:00 PM EDT SUBJECTIVE: Lisa Seo is a 25 y.o. year old female who presents for evaluation of dysuria x 3 days HPI Patient reports new onset dysuria, incomplete bladder emptying, difficulty initiating urination x 3days. Denies pelvic pain, low back pain, fever, chills. Reports cannot amount of white vaginal discharge. Sexually active with long-term AMAB partner. On oral control. Denies condom use. Last episodeof intercourse on Tuesday. No known STI exposures Problem List[1] Review of Systems Constitutional: Negative for chills and fever. Gastrointestinal: Negative for abdominal pain, nausea and vomiting. Genitourinary: Positive for dysuria and frequency. Negative for hematuria, pelvic pain and urgency. Musculoskeletal: Negative for back pain. OBJECTIVE: Vitals: 05/22/25 1527 BP: 110/80 Pulse: 65 Resp: 18 Temp: 97.3 ??F (36.3 ??C) SpO2: 98% Physical Exam Constitutional: General: She is not in acute distress. Appearance: Normal appearance. HENT: Head: Normocephalic and atraumatic. Right Ear: External ear normal. Left Ear: External ear normal. Nose: Nose normal. Eyes: Conjunctiva/sclera: Conjunctivae normal. Pulmonary: Effort: Pulmonary effort is normal. Abdominal: Tenderness: There is no right CVA tenderness or left CVA tenderness. Neurological: General: No focal deficit present. Mental Status: She is alert and oriented to person, place, and time. Psychiatric: Mood and Affect: Mood normal. Behavior: Behavior normal. ASSESSMENT/PLAN - UA in office with hematuria, leukocytes - Tx empirically for UTI with Macrobid for 5 days - Pyridium as needed, discomfort -Urine culture send out - Vaginitis panel send out, patient accepts routine STI screening - ED precautions advised Office Visit on 05/22/2025 Component Date Value Ref Range Status Color, UA 05/22/2025 Yellow Final Clarity, UA 05/22/2025 Clear Final Glucose, UA 05/22/2025 Negative Final Bilirubin, UA 05/22/2025 Negative Final Ketones, UA 05/22/2025 Negative Final Spec Grav, UA 05/22/2025 1.030 Final Blood, UA 05/22/2025 Positive (A) Negative, None Detected Final small pH, UA 05/22/2025 6.0 Final Protein, UA 05/22/2025 Negative Final Urobilinogen, UA 05/22/2025 0.2 Final Leukocytes, UA 05/22/2025 Trace Negative, Rare, Trace Final small Nitrite, UA 05/22/2025 Negative Negative, None Detected Final Appearance, UA 05/22/2025 clear Final QC Media Lot # 05/22/2025 [id number] Final Lot# Expiration Date 05/22/2025 [id number] Final Diagnosis Plan 1. Dysuria Chlamydia/N. Gonorrhoeae RNA, TMA, Vaginal Bacterial Vaginosis Panel Culture, Urine, Routine POCT Urinalysis Culture, Urine, Routine 2. Cystitis nitrofurantoin, macrocrystal-monohydrate, (Macrobid) 100 MG capsule phenazopyridine (Pyridium) 100 MG tablet Follow Up: PRN Medications Ordered Prior to Encounter[2] Andorran Translation: N/A [1] Patient Active Problem List Diagnosis Anxiety Depressive disorder Large liver Myopia Bipolar 1 disorder (CMS/HCC) Genital herpes Autoimmune urticaria Uterine bleeding, dysfunctional Microscopic hematuria Nasal septal deviation On Depo-Provera for contraception Sleep difficulties Obstructive sleep apnea Allergic drug reaction Oral candidiasis [2] Current Outpatient Medications on File Prior to Visit Medication Sig Dispense Refill acetaminophen (Tylenol) 500 MG tablet Take 2 tablets (1,000 mg) by mouth every 6 (six) hours if needed for moderate pain or fever for up to 25 doses. 30 tablet 0 acyclovir (Zovirax) 5 % ointment Apply topically 6 (six) times a day. For one week as needed for cold sore. Space applications every 3 hours. 15 g 2 Azelastine HCl 137 MCG/SPRAY solution SPRAY 1 SPRAY BY INTRANASAL ROUTE EVERY DAY Blood Pressure kit Use to check blood pressure once daily (1 hour after taking medication for bloodpressure) and if symptomatic 1 kit 0 buPROPion XL (Wellbutrin XL) 300 MG 24 hr tablet Take 1 tablet by mouth Once per day. cyclobenzaprine (Flexeril) 10 MG tablet Take 1 tablet (10 mg) by mouth 3 times daily for 10 days. 30 tablet 0 cyproheptadine (Periactin) 4 MG tablet Take 1 tablet by mouth in the morning. EPINEPHrine (Epipen) 0.3 MG/0.3ML injection syringe Inject 0.3 mg into the shoulder, thigh, or buttocks. hydrOXYzine pamoate (Vistaril) 25 MG capsule TAKE 1 CAPSULE BY MOUTH ONCE DAILY NEEDED FOR ANXIETY / PANIC ATTACK hydrOXYzine pamoate (Vistaril) 50 MG capsule Take 1 capsule (50 mg) by mouth every 6 (six) hours ifneeded for itching for up to 10 days. 30 capsule 0 Minoxidil (Rogaine Mens) 5 % foam To apply to the scalp once a day 60 g 2 multivitamin () 27-0.8 MG tablet Take 1 tablet by mouth Once per day. 90 tablet 3 norgestimate-ethinyl estradiol (Ortho-Cyclen) 0.25-35 MG-MCG tablet Take 1 tablet by mouth Once perday. 90 tablet 3 polyethylene glycol, PEG, 3350 (MiraLax) 17 GM/SCOOP powder Take 17 g by mouth Once per day. Mix with 4-8 ounces of water, coffee, or juice. 527 g 2 prazosin (Minipress) 2 MG capsule Take 1 capsule by mouth at bedtime. Spacer/Aero-Holding Chambers (Compact Space Chamber) device USE WITH ALBUTEROL valACYclovir (Valtrex) 500 MG tablet Take 1 tablet (500 mg) by mouth Once daily. 90 tablet 2 No current facility-administered medications on file prior to visit. documented in this encounter Plan of Treatment Upcoming Encounters Date Type Department Care Team (Late st Contact Info) Description 11/15/2025 10:00 AM EST Office Visit [facility] ADULT DENTAL [address] [place] [address] Alexis Medina Scheduled Orders Name Type Priority Associated Diagnoses Orde r Schedule Chlamydia/N. Gonorrhoeae RNA, TMA, Vaginal Microbiology Routine Dysuria Ordered: 05/22/2025 Bacterial Vaginosis Panel Microbiology Routine Dysuria Ordered: 05/22/2025 Culture, Urine, Routine Microbiology Routine Dysuria Expected: 05/22/2025 (Approximate), Expires: 05/22/2026 documented as of this encounter Procedures Procedure Name Priority Date/Time Associated Diagnosis Comments POCT URINALYSIS DIPSTICK Routine 05/22/2025 4:38 PM EDT Dysuria documented in this encounter Results * (ABNORMAL) POCT Urinalysis (05/22/2025 4:38 PM EDT) Color, UA Yellow Clarity, UA Clear Glucose, UA Negative Bilirubin, UA Negative Ketones, UA Negative Spec Grav, UA 1.030 Blood, UA Positive(A) Negative, None Detected Comment:small pH, UA 6.0 Protein, UA Negative Urobilinogen, UA 0.2 Leukocytes, UA Trace Negative, Rare, Trace Comment:small Nitrite, UA Negative Negative, None Detected Appearance, UA clear QC Media Lot # [id number] Lot# Expiration Date [id number] Urine 05/22/2025 4:38 PM EDT [facility] CHANNEL WORKER POINT OF CARE TEST ENTER/EDIT ORDERABLES Final Result documented in this encounter Visit Diagnoses Diagnosis Dysuria- Primary Cystitis Unspecified cystitis documented in this encounter Additional Health Concerns Assessment Noted Time PHQ-9 Depression Total Score: 19 01/14/ 025 11:01 AM EDT documented as of this encounter Care Teams Day Care Attendant Relationship Specialty Start Date End Date Shannon Wade FNP [address] [place] [address] PCP - General Family Medicine 07/24/21 Claudia Sarah Off Track Betting ManagerProcedure Analyst 02/24/24 documented as of this encounter
--- OUTSIDE RECORDS SUMMARY | 2025-05-22 18:05 | XMS_ITS | Encounter Summary ---
Author Organization [employer] Address [address] [facility] 7t [place] [address] Care Team Providers Care Results Technician Name Role Phone Shannon Wade Primary Care Provider [phone] Bucky Mccray Unavailable Kyra Forte RN Unavailable [phone] Reason for Visit * Reason Onset Date Comments Referral 11/22/2023 Encounter Details Date Type Department Care Team (Late st Contact Info) Description 11/22/2023 Telephone [facility] MEDICINE [address] [place] [address] Shannon Wade FNP [address] [place] [address] Referral Social History Tobacco Use Types Packs/Day [...] PM EST Returned call to Joanne at [facility] regarding message below. Joanne informed that [...] 2:54 PM EST Tc from Joanne with [facility] requesting a referral for Phychiatric on behalf of patient due to pt informing she is not happy at her current one. Please contact Joanne @ [phone] documented in this encounter Plan of Treatment Upcoming Encounters Date Type Department Care Team (Late st Contact Info) Description 11/15/2025 10:00 AM EST Office Visit [facility] CHC ADULT DENTAL [address] [place] [address] Alexis Guevara documented as of this encounter Visit Diagnoses Not on filedocumented in this encounter Additional Health Concerns Assessment Noted Time PHQ-9 Depression Total Score: 25 11/17/ 024 3:37 PM EST documented as of this encounter Care Teams Results Technician Relationship Specialty Start Date End Date Shannon Wade FNP [address] [place] [address] PCP - General Family Medicine 07/24/21 Bucky Mccray Community Health Worker 01/06/2403/28 Kyra Forte RN [address] [place] [address] Gunite Mixer 02/21/24 03/28/24 Claudia Sarah Gunite MixerFilm Technician 02/24/24 documented as of this encounter
--- OUTSIDE RECORDS SUMMARY | 2025-05-22 18:05 | XMS_ITS | Encounter Summary ---
Author Organization [employer] Address [address] [facility] 7t [place] [address] Care Team Providers Care Crystalizer Operator Name Role Phone Shannon Wade Primary Care Provider [phone] Bucky Mccray Unavailable Kyra Forte RN Unavailable [phone] Encounter Details Date Type Department Care Team ([facility] st Contact Info) Description 01/18/2024 Orders Only [facility] MED & PEDS [address] [place], [place] [id number] Shannon Wade FNP [address] [place] [address] Social History Tobacco Use Types Packs/Day Years [...] Description 11/15/2025 10:00 AM EST Office Visit [facility] CHC ADULT DENTAL [address] [place] [address] Alexis Medina documented as of this encounter Visit Diagnoses Not on filedocumented in this encounter Additional Health Concerns Assessment Noted Time PHQ-9 Depression Total Score: 25 024 3:37 PM EST documented as of this encounter Care Teams Crystalizer Operator Relationship Specialty Start Date End Date Shannon Wade FNP [address] [place] [address] PCP - General Family Medicine 07/24/21 Bucky Mccray Community Health Worker 01/06/2403/28 Kyra Forte RN [address] [place] [address] Television Announcer 02/21/24 03/28/24 Claudia Sarah Television AnnouncerLiquor Rectifier 02/24/24 documented as of this encounter
--- OUTSIDE RECORDS SUMMARY | 2025-05-22 18:05 | XMS_ITS | Encounter Summary ---
Author Organization [employer] Address [address] [facility] 7t [place] [address] Care Team Providers Care Assembler Finger Buffs Name Role Phone Shannon Wade Primary Care Provider [phone] Bucky Mccray Unavailable Kyra Fotre RN Unavailable [phone] Reason for Visit * Reason Onset Date Comments Letter for School/Work 07/01/2023 Encounter Details Date Type Department Care Team ([facility] st Contact Info) Description 07/01/2023 Telephone [facility] MEDICINE [address] [place] [address] Shannon Wade FNP [address] [place], [place] [id number] Letter for School/Work Social History Tobacco Use [...] at encounter 06/20/23, but those are from [facility] ED visit on 06/09/23 which I had already addressed with pt during visit 06/20/23. I believe Monica is talking about a new ED eval. * Telephone Encounter - Jazzy Rodas RN - 07/08/2023 9:45 AM EDT TC to pt- no answer. LM to [facility]. Ortega, the [facility] ED notes are scanned in ..23 in encounters * Telephone Encounter - LEN [...] in the chart. Can you please let yumikow where I can find them? Thanks! * Telephone Encounter - Stephanie Mahendra - 07/01/2023 3:52 PM EDT Tc from pt requesting a letter stating pt is allowed to go back to work following an allergic reaction today. Pt did take benadryl and is now asymptomatic. Any questions, contact pt at [phone] documented in this encounter Plan of Treatment Upcoming Encounters Date Type Department Care Team ([facility] st Contact Info) Description 11/15/2025 10:00 AM EST Office Visit [facility] ADULT DENTAL [address] [place] [address] Alexis Medina documented as of this encounter Visit Diagnoses Not on filedocumented in this encounter Care Teams Assembler Finger Buffs Relationship Specialty Start Date End Date Shannon Wade FNP [address] [place] [address] PCP - General Family Medicine 07/24/21 Bucky Mccray Community Health Worker 01/06/2403/28 Kyra Forte RN [address] [place] [address] Cooking Teacher 02/21/24 03/28/24 Claudia Sarah Cooking TeacherElectrical Machine Builder 02/24/24 documented as of this encounter
--- OUTSIDE RECORDS SUMMARY | 2025-05-22 18:05 | XMS_ITS | Encounter Summary ---
Author Organization [employer] Address [address] [facility] 7t [place] [address] Care Team Providers Care Precision Assembler Name Role Phone Shannon Wade Primary Care Provider [phone] Reason for Visit * Reason Onset Date Comments Nurse Triage 11/19/2024 Encounter Details Date Type Department Care Team ([facility] st Contact Info) Description 11/19/2024 Telephone [facility] MEDICINE [address] [place] [address] Shannon Wade FNP [address] [place] [address] Nurse Triage Social History Tobacco Use Types [...] from 06/18/24: 05/28/24: Sleep Study completed at [facility]. Impresion: very mild sleep apnea. Can [...] from 06/18/24: 05/28/24: Sleep Study completed at [facility]. Impresion: very mild sleep apnea. Can [...] this symptom The caller accepted this outcome. [phone] documented in this encounter Plan of Treatment Upcoming Encounters Date Type Department Care Team (Late st Contact Info) Description 11/15/2025 10:00 AM EST Office Visit [facility] ADULT DENTAL [address] [place] [address] Alexis Medina documented as of this encounter Visit Diagnoses Not on filedocumented in this encounter Additional Health Concerns Assessment Noted Time PHQ-9 Depression Total Score: 25 11/17/ 024 3:37 PM EST documented as of this encounter Care Teams Precision Assembler Relationship Specialty Start Date End Date Shannon Wade FNP [address] [place] [address] PCP - General Family Medicine 07/24/21 Claudia Sarah Rubbish Collection SupervisorDrilling Assistant 02/24/24 documented as of this encounter
--- OUTSIDE RECORDS SUMMARY | 2025-05-22 18:05 | XMS_ITS | Encounter Summary ---
Author Organization [employer] Address [address] [facility] 7t [place] [address] Care Team Providers Care Health And Wellness Sales Consultant Name Role Phone Shannon Wade LEN Primary Care Provider [phone] Encounter Details Date Type Department Care Team (Latest Contact Info) Description 05/22/2025 Travel Social History Tobacco Use Types Packs/Day [...] Description 11/15/2025 10:00 AM EST Office Visit [facility] ADULT DENTAL [address] [place] [address] Alexis Medina documented as of this encounter Visit Diagnoses Not on filedocumented in this encounter Additional Health Concerns Assessment Noted Time PHQ-9 Depression Total Score: 19 025 11:01 AM EDT documented as of this encounter Care Teams Health And Wellness Sales Consultant Relationship Specialty Start Date End Date Shannon Wade FNP [address] [place] [address] PCP - General Family Medicine 07/24/21 Claudia Sarah Galvanizing Pot RunnerExcelsior Cutter 02/24/24 documented as of this encounter
--- OUTSIDE RECORDS SUMMARY | 2025-05-22 18:05 | XMS_ITS | Encounter Summary ---
Author Organization [employer] Address [address] [facility] [address] [place] [address] Care Team Providers Care Frame Nailer Name Role Phone Shannon Wade Primary Care Provider [phone] Bucky Mccray Unavailable Kyra Forte RN Unavailable [phone] Reason for Visit * Reason Onset Date Comments ER Follow-up 12/14/2023 Encounter Details Date Type Department Care Team (Late st Contact Info) Description 12/14/2023 Telephone [facility] MEDICINE [address] [place] [address] Shannon Wade FNP [address] [place] [address] ER Follow-up Social History Tobacco Use Types [...] Miscellaneous Notes * Telephone Encounter - Johanna Aivlez RN - 12/14/2023 2:52 PM EDT Triage call Pt is at work during this call. Pt reports was seen in ED [facility] 12/11/23, report is on the chart. Pt [...] CORKY Lucia 12/20/23 @ 245pm in the [facility] office on [address]. Pt is made aware this apt in [facility] building. Pt agrees with disposition, [...] ED visit on : Date: 12/11/23 Hospital: [facility] Seen for: Menstrual Bleeding Pt stated symptoms seem to be worsening Symptom: Vaginal Bleeding - Not Outcome: Transfer to a nurse or provider NOW! Reason: Can't stand (unless normally can't stand) documented in this encounter Plan of Treatment Upcoming Encounters Date Type Department Care Team (Late st Contact Info) Description 11/15/2025 10:00 AM EST Office Visit [facility] ADULT DENTAL [address] [place] [address] Alexis Medina documented as of this encounter Visit Diagnoses Not on filedocumented in this encounter Additional Health Concerns Assessment Noted Time PHQ-9 Depression Total Score: 25 024 3:37 PM EST documented as of this encounter Care Teams Frame Nailer Relationship Specialty Start Date End Date Shannon Wade FNP [address] [place] [address] PCP - General Family Medicine 07/24/21 Bucky Mccray Community Health Worker 01/06/2403/28 Kyra Forte RN [address] [place] [address] Sql Report Analyst 02/21/24 03/28/24 Claudia Sarah Sql Report AnalystChemical Dependency Professional 02/24/24 documented as of this encounter
--- OUTSIDE RECORDS SUMMARY | 2025-05-22 18:05 | XMS_ITS | Encounter Summary ---
Author Organization [employer] Address [address] [facility] 7t [place] [address] Care Team Providers Care Income Tax Investigator Name Role Phone Shannon Wade Primary Care Provider [phone] Reason for Visit * Reason Onset Date Comments Appointment Request 07/03/2024 Encounter Details Date Type Department Care Team ([facility] Contact Info) Description 07/03/2024 Telephone [facility] MEDICINE [address] [place] [address] Shannon Wade FNP [address] [place] [address] Appointment Request Social History Tobacco Use Types [...] Description 11/15/2025 10:00 AM EST Office Visit [facility] CHC ADULT DENTAL [address] [place] [address] Alexis Medina documented as of this encounter Visit Diagnoses Not on filedocumented in this encounter Additional Health Concerns Assessment Noted Time PHQ-9 Depression Total Score: 25 024 3:37 PM EST documented as of this encounter Care Teams Income Tax Investigator Relationship Specialty Start Date End Date Shannon Wade FNP [address] [place] [address] PCP - General Family Medicine 07/24/21 Claudia Sarah Shopping Centre ManagerTechnical Business Analyst 02/24/24 documented as of this encounter
--- OUTSIDE RECORDS SUMMARY | 2025-05-22 18:05 | XMS_ITS | Clinical Summary ---
Author Organization [facility] Address [address] [place] [address] Phone Care Team Providers Care Refrigeration Unit Repairer Name Role Phone Physician, Pcp Unknown Primary Care Provider Alisha vailable Allergies No known active allergies Medications EPINEPHrine (EPIPEN) 0.3 mg/0.3 mL injection Inject 0.3 mL (0.3 mg total) into the thigh if needed for anaphylaxis . 1 each 12/11/2024 Active Social History Tobacco Use Types Packs/Day Years [...] 90 12/11/2024 7:54 AM EDT Temperature 36.8 C (98.2 F) 12/11/2024 4:51 AM EDT Respiratory Rate 19 12/11/2024 7:54 AM EDT [...] 2018 Social Influencers of Health Screening 08/21/2022 DTaP,Tdap,and Td Vaccines (7 - Td or Tdap) 07/04/2024 07/04/2014, 05/24/2006, 06/02/2004, Additional history exists Depression Screening 09/19/2024 COVID-19 Vaccine (4 - season) 2025 12/13/2022, 12/25/2021, 12/03/2021 Influenza Vaccine (#1) 2025 , 06/09/2022, 08/10/2019, Additional history exists Gonorrhea/Chlamydia Screening 11/29/2025 11/29/2024 Cervical Cancer Screening: Pap Smear 10/10/2026 10/10/2023 Pneumococcal Vaccine: Pediatrics (0 to 5 Years) and At-Risk Patients (6 to 49 Years) Aged Out 07/11/2003, 06/11/2003, 05/09/2003 No [...] topic Insurance MEDICAID - [place] Care Teams Refrigeration Unit Repairer Relationship Specialty Start Date End Date Physician, Pcp Unknown PCP - General 12/11/24
--- OUTSIDE RECORDS SUMMARY | 2025-05-22 18:05 | XMS_ITS | Encounter Summary ---
Author Organization [employer] Address [address] [place] [address] [address] [place] [address] Care Team Providers Care Medical Equipment Sales Name Role Phone Shannon Wade AGILITY INSTRUCTOR Primary Care Provider Bucky Mccray Unavailable Kyra Forte RN Unavailable [phone] Reason for Visit * Reason Onset Date Comments Care Coordination 03/19/2024 [facility] program g raduation Encounter Details Date Type Department Care Team ([facility] Contact Info) Description 03/19/2024 Telephone [facility] MED & PEDS [address] [place], [place] [phone] Shannon Wade FNP [address] [place], [place] [phone] Care Coordination ([facility] program graduation) Social History Tobacco Use Types [...] provided on Walk-In Urgent Care located in [facility] of [facility]. Patient provided with after-hours line for [facility], , which offer night time triage service and option to transfer to national sales consultant provider if needed. CM discussed with the [...] this time. * Telephone Encounter - LEN uRtherford - 03/20/2024 5:38 PM EDT Hello, I [...] 3:43 PM EDT T/C to Claudia on [phone] for below message, No answer. LVM to call back on [phone]. Please review and advise for below request. * Telephone Encounter - Josefa Murray - 03/19/2024 11:30 AM EDT Tc from [facility] with [facility] calling to inform pt was advised by ENT to request an urgent letter for pt to be able to get seen sooner . States was offered an appt for next year and pt believes isto far out .Any question please contact phone # [phone]. documented in this encounter Plan of Treatment Upcoming Encounters Date Type Department Care Team (Late st Contact Info) Description 11/15/2025 10:00 AM EST Office Visit [facility] [address] [place] [address] Alexis Medina documented as of this encounter Visit Diagnoses Not on filedocumented in this encounter Additional Health Concerns Assessment Noted Time PHQ-9 Depression Total Score: 25 024 3:37 PM EST documented as of this encounter Care Teams Medical Equipment Sales Relationship Specialty Start Date End Date Shannon Wade FNP [address] [place] [address] PCP - General Family Medicine 07/24/21 Bucky Mccray Community Health Worker 01/06/2403/28 Kyra Forte, MARQUEZ [address] [place] [address] Elementary School Teacher'S Aide 02/21/24 03/28/24 Claudia Sarah [employer] Teacher'S AideOil Operator 02/24/24 documented as of this encounter
--- OUTSIDE RECORDS SUMMARY | 2025-05-22 18:05 | XMS_ITS | Encounter Summary ---
Author Organization [employer] Address [address] [facility] [address] [place] [address] Care Team Providers Care Quick Sketch Artist Name Role Phone Shannon Wade BUSINESS MANAGEMENT PROFESSOR Primary Care Provider [phone] Encounter Details Date Type Department Care Team ([facility] st Contact Info) Description 05/22/2025 Telephone [facility] MED & PEDS [address] [place], [place] [phone] Shannon Wade FNP [address] [place], [place] [phone] Social History Tobacco Use Types Packs/Day Years [...] encounter Miscellaneous Notes * Telephone Encounter - Maddie Ulrich RN - 05/22/2025 4:37 PM EDT Pt walked into office complaining of frequent urination and vaginal itching. Pt stated had unprotected intercourse with AMAB partner on 05/18/25 and started having symptoms and is concerned for UTI orSTI. Pt requesting to be seen in [facility] instead of [facility]. Reviewed with [facility] provider who agreed to seeing pt at [facility] and to book per schedule. Vitals obtained and charted in appt. Advised for pt to remain in room and provider will see after seeing other pts. Bag of barrier condoms and CRS testing information card handed to pt for future STI concerns. Pt verbalized understanding and agreement with plan. documented in this encounter Plan of Treatment Upcoming Encounters Date Type Department Care Team (Late st Contact Info) Description 11/15/2025 10:00 AM EST Office Visit [facility] [address] [facility] [place] [address] Alexis Medina documented as of this encounter Visit Diagnoses Not on filedocumented in this encounter Additional Health Concerns Assessment Noted Time PHQ-9 Depression Total Score: 19 01/14/2 025 11:01 AM EDT documented as of this encounter Care Teams Quick Sketch Artist Relationship Specialty Start Date End Date Phalen, Shannon, BUSINESS MANAGEMENT PROFESSOR [address] [place] [address] PCP - General Family Medicine 07/24/21 Claudia Sarah Family NurseEnrollment Services Dean 02/24/24 documented as of this encounter
--- OUTSIDE RECORDS SUMMARY | 2025-05-22 18:05 | XMS_ITS | Encounter Summary ---
Author Organization [employer] Address [address] [facility] [address] [place] [address] Care Team Providers Care Unit Aide Tech Name Role Phone Shannon Wade Primary Care Provider [phone] Bucky Mccray Unavailable Kyra Forte RN Unavailable [phone] Encounter Details Date Type Department Care Team ([facility] st Contact Info) Description 08/02/2023 Telephone [facility] MEDICINE [address] [place] [address] Shannon Wade FNP [address] [place] [address] Social History Tobacco Use Types Packs/Day Years [...] 10:00 AM EST Office Visit [facility]ULT D[facility] [address] [place] [address] Alexis Medina documented as of this encounter Visit Diagnoses Not on filedocumented in this encounter Additional Health Concerns Assessment Noted Time PHQ-9 Depression Total Score: 23 023 9:59 AM EDT documented as of this encounter Care Teams Unit Aide Tech Relationship Specialty Start Date End Date Shannon Wade FNP [address] [place] [address] PCP - General Family Medicine 07/24/21 Bucky Mccray Community Health Worker 01/06/2403/28 Kyra Forte RN [address] [place] [address] Assistant District Attorney 02/21/24 03/28/24 Claudia Sarah Assistant District AttorneyShirt Presser 02/24/24 documented as of this encounter
--- OUTSIDE RECORDS SUMMARY | 2025-05-22 18:05 | XMS_ITS | Clinical Summary ---
Author Organization [employer] Address [address] [place] [address] 7[address] [place] [address] Care Team Providers Care Property Valuer Name Role Phone Shannon Wade LEN Primary Care Provider [phone] Allergies Active Allergy Reactions Criticality Noted Date [...] Chamber) device USE WITH ALBUTEROL 2 Active cyproheptadine (Periactin) 4 MG tablet Take 1 tablet by mouth in the morning. 3 Active hydrOXYzine pamoate (Vistaril) 25 MG capsule TAKE 1 CAPSULE BY MOUTH ONCE DAILY NEEDED FOR ANXIETY / PANIC ATTACK 3 Active acetaminophen (Tylenol) 500 MG tablet [...] for 10 days. 30 tablet 4 Active multivitamin () 27-0.8 MG tablet [...] 3 hours. 15 g 2 5 Active buPROPion XL (Wellbutrin XL) 300 MG 24 hr tablet Take 1 tablet by mouth Once per day. 5 Active prazosin (Minipress) 2 MG capsule Take 1 capsule by mouth at bedtime. 5 Active Azelastine HCl 137 MCG/SPRAY solution SPRAY 1 SPRAY BY INTRANASAL ROUTE EVERY DAY 5 Active polyethylene glycol, PEG, 3350 (MiraLax) 17 GM/SCOOP powder Take 17 g by mouth Once per day. Mix with 4-8 ounces of water, coffee, or juice. 527 g 2 5 01/15/20 26 Active norgestimate-et hinyl estradiol (Ortho-Cyclen) 0.25-35 MG-MCG tablet Take 1 tablet by mouth Once per day. 90 tablet 3 5 01/15/20 26 Active Blood Pressure kit Use to check blood pressure once daily (1 hour after taking medication for blood pressure) and if symptomatic 1 kit 5 Active nitrofurantoin, macrocrystal-mo nohydrate, (Macrobid) 100 MG capsuleIndicati ons:Cystitis Take 1 capsule (100 mg) by mouth 2 times daily for 5 days. 10 capsule 5 05/27/20 25 Active phenazopyridine (Pyridium) 100 MG tabletIndicatio ns:Cystitis Take 1 tablet (100 mg) by mouth if needed in the morning, at noon, and at bedtime for bladder spasms. 10 tablet Active Active Problems Problem Noted Date Diagnosed Date Allergic drug reaction 02/13/2025 Assessment & Plan (02/13/2025 4:05 PM EDT): Advised to go to the emergency room for further evaluation due to risk of progressive angioedema and anaphylaxis, unclear if it is related to fluconazole or other medication given progression of esophageal candidiasis. She agreed to her boyfriend taking her to the ED, she is hemodynamically stable, no respiratory distress at this time (does not need EpiPen). Follow-up tomorrow for health status check. Oral candidiasis 02/13/2025 Overview (02/13/2025): Needs additional treatment, ? allergic to fluconazole, she will go to the ED for evaluation of second-tier medication (nystatin) Obstructive sleep apnea 01/22/2025 Overview (01/22/2025): 05/28/24: Sleep Study completed at [facility]. Impresion: very mild sleep apnea. Can try AutoCPAP 6-15. Consider medication side effects and disorders of hypersomnia such as narcolepsy and idiopathic hypersomnia. Referral to Sleep Medicine for further eval / management 06/21/24 Assessment & Plan (04/22/2025 2:16 PM EDT): Consult March 2025 at [facility] with plan to order CPAP device and return for further eval. Encouraged to follow up with [facility] company. If fatigue not resolved s/p tx of RANDY, will need to pursue further potential causes. Sleep difficulties 06/21/2024 Overview (06/21/2024): 05/28/24: Sleep Study completed at [facility]. Impresion: very mild sleep apnea. Can try AutoCPAP 6-15. Consider medication side effects and disorders of hypersomnia such as narcolepsy and idiopathic hypersomnia. Referral to Sleep Medicine for further eval / management 06/21/24 On Depo-Provera for contraception 10/16/2023 Assessment & Plan (10/16/2023 8:23 PM EST): Next depo window: 12/01 - 12/30/23 Message sent to [facility] RN team to add to schedule Standing order: 150mg IM Q11-15 weeks x 1 year (10/16/23-10/16/24) Nasal septal deviation 07/30/2023 Overview (01/22/2025): - Sep 2024: CT Mastoid/facial bones w/o contrast ordered by Dr. Earl. Impression: mild mucosal thickening inferior Right maxillary sinus. Paranasal sinuses are otherwise clear. Degenerative changes of the right temporomandibular joint. Consider MRI exam for further oval of the soft tissue structures of the TMJ joints. - Oct 2024: appt with [facility]. Eval: nasal obstruction, nasal septal deviation, hx of septoplasty, inferior turbinate hypertrophy. Discussed option of septorhinoplasty with inferior turbinate reduction.I would like her to think about these risks and discuss with her family before moving forward. Rhinoplasty would not resolve any symptoms related to sleep apnea or dizziness. 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 If not successful, new referral to same or other location may be placed for further eval Microscopic hematuria 06/23/2023 Assessment & Plan (06/23/2023 5:13 PM EDT): Referral to Urology for persistent microscopic hematuria on 06/23/23 Bipolar 1 disorder 04/08/2023 Assessment & Plan (01/22/2025 1:03 PM EDT): Reports mental health currently stable/improved. No active SI/HI/thoughts of self harm Followed through [facility] therapist and psychiatrist Current med regimen through psych: Bupropion 300mg daily Prazosin 2mg nightly Previous medications: (DC as of January 2024) Assessment & Plan (01/19/2024 11:26 AM EDT): Reports mental health currently stable/improved. No active SI/HI/thoughts of self harm Followed through [facility] therapist and psychiatrist Current med regimen through psych: Bupropion 300mg daily Prazosin 2mg nightly Previous medications: (DC as of January 2024) Assessment & Plan (11/24/2023 11:30 AM EST): Exacerbation of symptoms of mental health, no active SI/HI/thoughts of self harm Followed through [facility] therapist and psychiatrist Crisis information [...] with multiple family members. Currently working at [employer] although she has not gone to work due to lack of motivation. Connected with through [facility], not taking medication due to [...] intervention , Patient to reach out to [facility] team as needed, Comply with medication , and Patient to follow-up with external team Assessment & Plan (07/30/2023 6:54 PM EST): Following with psych/mental health team. Psych meds took priority today as pt has been off of meds for 2 weeks (abrupt withdrawal d/t lapse in insurance). Unlikely to expect call back on a Tuesday from pt's psych prescriber. Spoke with [facility] pharmacy and came up with the following plan: Maintenance medication regimen through psych: Hydroxyzine 25mg PRN Prazosin 5mg nightly Oxcarbazepine 300mg daily Bupropion 300mg in the morning Melatonin 10mg nightly Start Bupropion at 150mg dose x 2 weeks then taper up to 300mg. Start Prazosin at 1mg nightly, then titrate upwards per psych direction Other medications may be restarted at current doses Encouraged to follow up with psych prescriber regarding further instructions for dose titration Med safety and SE reviewed Assessment & Plan (06/23/2023 5:15 PM EDT): Following with mental health team. 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 Continues with daily valacyclovir 500mg for suppression Assessment & Plan (01/22/2025 1:02 PM EDT): - Cont current plan Assessment & Plan (2023 1:24 PM EDT): In agreement w/ work excuse letter for the approx 2 flares/year lasting 1-2 days duration Assessment & Plan (04/08/2023 5:00 PM EDT): No obvious herpetic lesions seen at this time 07/2022 Had + HSV PCR type 1 -ok to continue her valacyclovir daily for suppression 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 Overview (01/22/2025): Followed by [facility] Consult Apr 2024 no IgE sensitizations to environmental aeroallergens via [employer] 06/18/22 Plan: continue cetirizine nightly PRN Uterine bleeding, dysfunctional 04/08/2023 Overview (01/19/2024): Referral to [facility] OPERATIONAL RISK CONSULTANT placed 01/19/24 Assessment & Plan (01/19/2024 11:22 AM EDT): - History of menorrhagia with saturating > 1 pad/hour and passing blood clots - [facility] ED eval in November 2023, pelvic US unremarkable aside from ovarian cyst - Pt continues on depo, HCG neg in office today - CBC November 2023 WNL - ED/urgent care precautions reviewed Assessment & Plan (2023 1:27 PM EDT): - Medical 02/08/2023 that led to persistent vaginal bleeding, which pt reports has now majority resolved - Pt on combination contraception - Referred to OPERATIONAL RISK CONSULTANT - Hematuria during [facility] eval, [...] of platelet of coagulation dx -referred to OPERATIONAL RISK CONSULTANT -alarm signs and symptoms in case needs to go to ED explained in length to pt -to f up w PCP ,if again thinks seeing blood urine will need to further eval - seems most likely from vaginal area Anxiety 01/04/2023 Large liver 01/04/2023 Overview (01/22/2025): Lab Results Component Value Date AST 19 01/14/2025 ALT 15 01/14/2025 TOTPROTEIN 7.3 01/14/2025 ALB 4.4 01/14/2025 ALP 47 01/14/2025 TOTALBILIRUB 0.6 01/14/2025 Assessment & Plan (01/22/2025 1:02 PM EDT): -History noted in record, suspect resolved. -Discussed possibility of RUQ US, follow up next appt Assessment & Plan (06/23/2023 5:09 PM EDT): -History noted in record -Check liver panel and testing for Hepatitis A, B, C Myopia 08/11/2018 Depressive disorder 12/18/2016 Resolved Problems Problem Noted Date Diagnosed Date Resolved Date Allergic reaction to dye 01/04/202310/2023 COVID-19 01/04/2023 2023 Encounters Date Type Department Care Team Description 05/22/2025 2:00 PM EDT Office Visit [facility] MED & PEDS [address] [place] [address] Vika Kim FNP Dysuria (Primary Dx); Cystitis 05/22/2025 Telephone [facility] [address] [place] [address] Shannon Wade FNP 05/22/2025 Travel 05/14/2025 3:00 PM EDT Office Visit [facility] ADULT DENTAL [address] [place] [address] Alexis Medina Dental calculus (Primary Dx) 05/06/2025 Telephone [facility] [address] [place] [address] Shannon Wade FNP 04/26/2025 Telephone [facility] [address] [place] [address] Shannon Wade FNP 04/22/2025 9:00 AM EDT Office Visit [facility] [address] [place] [address] Shannon Wade FNP Obstructive sleep apnea (Primary Dx) 04/22/2025 Travel 03/05/2025 Results Follow-Up [facility] [address] [place] [address] Shannon Wade FNP Rheumatoid Factor, C-reactive Protein, Sed Rate by Modified Westergren, Additional followed-up results: 12 from Last 3 Months Immunizations Immunization Administration Dates Next Due DTaP 05/24/2006, 4,06/11/2003,05/09,2002 [...] 7 07/11/2003,06/11/20 03,05/09/2003 Tdap 01/14/2025,07/04/2014 Varicella 09/30/2008,04/28/2005 Family History Medical History Relation Name Comments Breast cancer Maternal Grandmother LEEP procedure Mother Relation Name Status Comments Maternal Grandmother Mother Social History Tobacco Use Types Packs/Day Years Used Date Smoking Tobacco: Never Passive Smoke Exposure: Never Smokeless Tobacco: Never Tobacco Cessation:Counseling Given: Not Answered Alcohol Use Standard Drinks/Week Comments Never 0 (1 standard drink = 0.6 oz pur e alcohol) Depression Answer Date Recorded Patient Health Questionnaire-9 Score 01/14/2025 Patient Health Questionnaire-9 Score 01/14/2025 Last PHQ-9: Questionnaire Data Not on [...] EDT Inhaled Oxygen Concentration - - Weight 57.2 kg (126 lb) 04/22/2025 9:27 AM EDT Height 165.1 cm (5' 5 ) 04/22/2025 9:27 AM EDT Body Mass Index 20.97 04/22/2025 9:27 AM EDT Plan of Treatment Upcoming Encounters Date Type Department Care Team (Late st Contact Info) Description 11/15/2025 10:00 AM EST Office Visit [facility] ADULT DENTAL [address] [place] [address] Alexis Medina Health Maintenance Due Date Last Done Comments Alcohol/Substance Use Screening 2014 Family Planning (PISQ) 2017 Meningococcal B Vaccine (1 of 2 - Standard) 2018 Dental Oral Exam 04/05/2025 10/05/2024 COVID-19 Vaccine ( - season) 2025 12/13/2022, 12/25/2021, 12/25/2021, Additional history exists Influenza Vaccine (#1) 2025 , 06/09/2022, 08/10/2019, Additional history exists Depression Monitoring 07/16/2025 01/14/2025, 025 Dental X-Ray: Bitewings 10/06/2025 10/05/2024, 06/22 Dental Prophylaxis 11/15/2025 05/14/2025, 10/05/2024 Chlamydia and Gonorrhea Screening 01/14/2026 01/14/2025, 11/29/2024, 10/10/2023, Additional history exists Disability Screening 01/14/2026 01/14/2025 SDOH Screening 01/14/2026 01/14/2025 Tobacco Screening 05/22/2026 05/22/2025 Pap Smear 10/10/2026 10/10/2023 Dental X-Ray: Full Mouth 10/06/2027 10/05/2024 DTaP/Tdap/Td Vaccines (8 - Td or Tdap) 01/14/2035 01/14/2025, 07/04/2014, 05/24/2006, Additional history exists Zoster Vaccines (1 of 2) 2052 RSV Patients and Patients Aged 60 years or older (1 - 1-dose 75+ series) 2077 Pneumococcal Vaccine: Pediatrics (0 to 5 Years) and At-Risk Patients (6 to 49) Years Aged Out 07/11/2003, 06/11/2003, 05/09/2003 No longer [...] Vaccine Completed 07/21/2018, 014 HIV Screening Completed 01/14/2025, 11/17, 07/30/2021, Additional history exists Hepatitis C Screening Completed 01/14/2025 , 11/29/2024, 06/20/2023, Additional history exists RSV under 20 months Aged Out No longe r eligible based on patient's age to complete this topic Rotavirus Vaccines Aged Out No longer eligible based on patient's age to complete this topic Procedures Procedure Name Priority Date/Time Associated Diagnosis Comments POCT URINALYSIS DIPSTICK Routine 05/22/2025 4:38 PM EDT Dysuria ORAL HYGIENE INSTRUCTIONS Routine 05/14/2025 3:00 PM EDT PROPHYLAXIS - ADULT Routine 05/14/2025 3 :00 PM EDT CASE PRESENTATION, DETAILED AND EXTENSIVE TREATMENT PLANNING Routine 05/14/2025 3:00 PM EDT CHLAMYDIA/N. GONORRHOEAE RNA, TMA, UROGENITAL Routine 01/14/2025 1:39 PM EDT Encounter for routine history and physical examination of adult HEPATITIS C VIRAL RNA, QUANTITATIVE, REAL-TIME PCR Routine 01/14/2025 1:31 PM EDT Encounter for routine history and physical examination of adult HIV 1/2 ANTIGEN/ANTIBODY, FOURTH GENERATION W/RFL Routine 01/14/2025 1:31 PM EDT Encounter for routine history and physical examination of adult PANORAMIC RADIOGRAPHIC IMAGE Routine 10/05/2024 2:00 PM EST BITEWINGS - 4 RADIOGRAPHIC IMAGES Routine 10/05/2024 2:00 PM EST PERIODIC ORAL EVALUATION - ESTABLISHED PATIENT Routine 10/05/2024 2:00 PM EST PAP SMEAR Routine 10/10/2023 9:20 AM EST Screening for cervical cancer from Last 3 Months or Most Recently Relevant to Health Maintenance Results * (ABNORMAL) POCT Urinalysis (05/22/2025 4:38 [...] Media Lot # [id number] Lot# Expiration Date [id number] Urine 05/22/2025 4:38 PM EDT [facility] POINT OF CARE TEST ENTER/EDIT ORDERABLES Final Result * Chlamydia/N. Gonorrhoeae RNA, TMA, Urogenitial (01/14/2025 1:39 PM EDT) CT PCR NOT DETECTED Not Detect. [facility] Comment:A not detected test result [...] psychologicalconsequences. NG PCR NOT DETECTED Not Detect. [facility] Comment:A not detected test result [...] lead to adverse medical, social or psychologicalconsequences. Urine (Urine, Random) 01/14/2025 1:39 PM EDT 01/14/2025 5:23 PM EDT Narrative [facility] - 01/15/2025 11:45 AM EDT Urine Shannon V[employer] [facility] MICROBIOLOGY - GENERAL ORD ERABLES Final Result Performing Organization Address [facility] Co de Phone Number [facility] [address] [place] [phone] * Hepatitis C Viral RNA, Quantitative, Real-Time PCR (01/14/2025 1:31 PM EDT) Hepatitis C Viral Load <15 NOT DETECTED NOT DETECTED IU/mL [facility] HCV Log PCR <1.18 NOT DETECTED NOT DETECTED Log IU/mL [facility] Comment:For additional infor mation, please refer [email or web address].[email or web address]/faq/[email or web address](This link is being provided for informational/educational purposes only.)THIS TEST WAS PERFORMED AT:[facility] [place] [phone] GAVIRIA MD Blood 01/14/2025 1:31 PM EDT 01/14/2025 1:59 PM EDT Shannon Vud[employer]onica [facility] BLOOD ORDERABLES Final Res ult Performing Organization Address [facility] Co de Phone Number [facility] [address] [place] [phone] * HIV-1/2 Antigen and Antibodies, Fourth Generation, with Reflexes (01/14/2025 1:31 PM EDT) HIV AB/AG Nonreactive Nonreactive [facility] Comment:HIV-1 p24 Ag and/or HIV-1/HIV-2 Ab not detected.A test result that is nonreactive does not exclude thepossibility of exposure to or infection with HIV-1 and/orHIV-2. Nonreactive results in this assay for individualswith prior exposure to HIV-1 and/or HIV-2 may be due toantigen and antibody levels that are below the limit ofdetection of this assay.The [employer] HIV Ag/Ab Combo assay result andsupplemental assay results should be interpreted inconjunction with the patient's clinical presentation,history and other laboratory results. If the results areinconsistent with clinical evidence, additional testing issuggested to confirm the result. Blood Venous blood specimen / Unknown 01/14/2025 1:31 PM EDT 01/14/2025 1:59 PM EDT us Shannon Wade [facility] BLOOD ORDERABLES Final Res ult [facility] [address] [place] [phone] * Pap Smear (10/10/2023 9:20 AM EST) Swab Cervical swab / Unknown 10/10/2023 9:20 AM EST 10/11/2023 9:30 AM EST Narrative [facility] - 10/20/2023 9:35 AM EST ----- ------- Name: Lisa Doe Age/Sex: 23/F : 2000 Unit#: [id number] Attend Dr: Shannon Wade Re10/10/23 Status: MELCHOR ANSARI Location: [facility] Disch: ----- ------- SPEC : [id number] RECD: 10/11/23 STATUS: DAVID SAWYER NUM: [id number] CONCHITA: 10/10/23 [facility] DR: Shannon Wade ENTERED: 10/11/23-113 SP TYPE: Pap Smr OTHR DR: ORDERED: Pap Smear Interpretation Satisfactory for evaluation. Moderate inflammation. Negative for intraepithelial lesion or malignancy. Clinical Information LMP: Unknown date Previous PAP test: Unknown date/findings Other history: Oral contraceptive Material Received ThinPrep-Cervical ----- ------- Signed (signature on file) ALBERTINA Miramontes ([facility]) 10/20/23 0935 ----- ------- END OF REPORT us Shannon [facility] CYTOLOGY ORDERABLES Final Result [facility] [address] [place] [address] [phone] from Last 3 Months or Most Recently Relevant to Health Maintenance Insurance [facility] C3 [facility]AL-[facility] MEDICAID STAND ADULT [facility] Care Teams Property Valuer Relationship Specialty Start Date End Date Shannon Wade FNP [address] [place] [phone] PCP - General Family Medicine 07/24/21 Claudia Sarah BrancherLeasing Representative 02/24/24
--- OUTSIDE RECORDS SUMMARY | 2025-05-22 18:05 | XMS_ITS | Encounter Summary ---
Author Organization [employer] Address [address] [place] [address] 7 [place] [address] Care Team Providers Care Funeral Assistant Name Role Phone Shannon Wade Primary Care Provider [phone] Bucky Mccray Unavailable Kyra Forte RN Unavailable [phone] Reason for Visit * Reason Onset Date Comments Med Refill 11/22/2023 Encounter Details Date Type Department Care Team ([facility] st Contact Info) Description 11/22/2023 Telephone [facility] [address] [place], [place] [phone] Shannon Wade FNP [address] [place], [place] [phone] Med Refill Social History Tobacco Use Types [...] 500 MG tablet To be sent to: [facility]/pharmacy #[id number] documented in this encounter Plan of Treatment Upcoming Encounters Date Type Department Care Team (Late st Contact Info) Description 11/15/2025 10:00 AM EST Office Visit [facility] ADULT DENTAL [address] [place] [address] Alexis Medina documented as of this encounter Visit Diagnoses Not on filedocumented in this encounter Additional Health Concerns Assessment Noted Time PHQ-9 Depression Total Score: 25 024 3:37 PM EST documented as of this encounter Care Teams Funeral Assistant Relationship Specialty Start Date End Date Shannon Wade FNP [address] [place] [phone] PCP - General Family Medicine 07/24/21 Bucky Mccray Community Health Worker 01/06/2403/28 Kyra Forte RN [address] [place] [phone] Slat Basket Maker Helper Machine 02/21/24 03/28/24 Claudia Sarah Slat Basket Maker Helper MachinePrecision Lens Grinder 02/24/24 documented as of this encounter
--- OUTSIDE RECORDS SUMMARY | 2025-05-22 18:05 | XMS_ITS | Encounter Summary ---
Author Organization [employer] Address [address] [facility] [address] [place] [address] Care Team Providers Care It Technician Name Role Phone Shannon Wade Primary Care Provider [phone] Reason for Visit * Reason Onset Date Comments Nurse Triage 12/10/2024 Encounter Details Date Type Department Care Team ([facility] st Contact Info) Description 12/10/2024 Telephone [facility] [address] [place] [address] Shannon Wade FNP [address] [place] [address] Nurse Triage Social History Tobacco Use Types [...] pt. She states that she went to [facility] for a yeast infection and she was [...] swelling. Pt states she will go to [facility] for assessment and her Mother will drive her there right now. I advised if she gets any sensation in her throat to call [phone] even if she is her way to ED. Pt. States she lives about 10 minutes away from [facility] ED. I will send this note to team nurses for fu on pt. Protocol Used: Anaphylaxis (Adult) Protocol-Based Disposition: Go to ED Now-Pt. Will got o [facility] ED NOW. Positive Triage Question: * Widespread [...] Description 11/15/2025 10:00 AM EST Office Visit [facility] ADULT D[facility] [address] [place] [address] Alexis Medina documented as of this encounter Visit Diagnoses Not on filedocumented in this encounter Additional Health Concerns Assessment Noted Time PHQ-9 Depression Total Score: 25 024 3:37 PM EST documented as of this encounter Care Teams It Technician Relationship Specialty Start Date End Date Shannon Wade FNP [address] [place] [phone] PCP - General Family Medicine 07/24/21 Claudia Sarah Floor Steward/StewardessCath Lab 02/24/24 documented as of this encounter
--- OUTSIDE RECORDS SUMMARY | 2025-05-22 18:05 | XMS_ITS | Encounter Summary ---
Author Organization [employer] Address [address] [place] [address] Care Team Providers Care District Wire Chief Name Role Phone Shannon Wade Primary Care Provider [phone] Bucky Mccray Unavailable Kyra Forte RN Unavailable [phone] Reason for Visit * Reason Onset Date Comments Nurse Triage 10/26/2023 Encounter Details Date Type Department Care Team (Late st Contact Info) Description 10/26/2023 Telephone [facility] [address] [place] [address] Shannon Wade FNP [address] [place] [address] Nurse Triage Social History Tobacco Use Types [...] your housing situation today? I have mau savanna 07/04/[address] you li [...] doesn'twork with metal fabrication , works at [employer] and did a deep clean of a closet with chemicals inthere. Pt doesn't remember splash or anything entering eye at that time. Pt right eye is fine and needs to wear contact to see. Pt is advised to come to [facility] today to be seen by provider. [...] You become worse * Telephone Encounter - Yuosif Campbell - 10/26/2023 11:56 AM EST Symptoms: [...] 10:00 AM EST Office Visit [facility] [address] [place] [address] Alexis Medina documented as of this encounter Visit Diagnoses Not on filedocumented in this encounter Additional Health Concerns Assessment Noted Time PHQ-9 Depression Total Score: 27 023 10:47 AM EST documented as of this encounter Care Teams District Wire Chief Relationship Specialty Start Date End Date Shannon Wade FNP [address] [place] [address] PCP - General Family Medicine 07/24/21 Bucky Mccray Community Health Worker 01/06/2403/28 Kyra Forte, MARQUEZ [address] [place] [address] Supervisor Packing Room 02/21/24 03/28/24 Claudia Sarah Supervisor Packing RoomEarly Childhood Director 02/24/24 documented as of this encounter
[2025-05-22 19:03] LABS: Bacterial Vaginosis PCR NEGATIVE (Negative); Candida Group PCR DETECTED (Not Detect); Candida glab krusei PCR NOT DETECTED (Not Detect); Trichomonas vaginalis PCR NOT DETECTED (Not Detect)
[2025-05-22 19:32] LABS: CT PCR NOT DETECTED (Not Detect.); NG PCR NOT DETECTED (Not Detect.)
== END 2025-05-22 17:49 | disposition home or self-care (01) ==
LOC: HO.HHCLNP 17:48
PROVIDERS: Visit Provider Registered Nurse
DX: Z11.3 Encounter for screening for infections with a predominantly sexual mode of transmission (principal); Z11.8 Encounter for screening for other infectious and parasitic diseases; R30.0 Dysuria
CPT/HCPCS: 81515; 87086; 87491; 87591

== ENCOUNTER 2025-05-31 11:33 | Outpatient (REF) | payer MEDICAID, SELFPAY ==
[2025-05-31 14:24] LABS: MANUAL DIFF FLAG NO
[2025-05-31 14:31] LABS: Hematocrit 37.7 % (37.0-47.0); Hemoglobin 13.1 g/dl (12.0-16.0); Imm Gran Abs Auto 0.03 X10*3/uL (0.00-0.03); Imm Gran Pct Auto 0.4 % (0.0-0.4); Lymphocytes Absolute Auto 1.5 X10*3/uL (1.2-4.9); Mean Corpuscular HGB Conc 34.7 g/dl (31.0-35.0); Mean Corpuscular Hemoglobin 31.8 pg (27.0-33.0); Mean Corpuscular Volume 91.5 fL (80.0-98.0); NRBC Abs Auto 0.000 X10*3/uL (0.0-0.012); NRBC Pct Auto 0.0 /100WBC (0.0-0.2); Platelet Count 191 X10*3/uL (160-400); Red Blood Count 4.12 X10*6/uL (4.20-5.50); White Blood Count 7.1 X10*3/uL (4.8-10.8)
[2025-05-31 14:41] LABS: INTERNATIONAL NORM RATIO 1.0 (0.9-1.1); Prothrombin Time 11.1 SEC (10.9-12.4)
[2025-05-31 15:05] LABS: Iron 76 mcg/dL (30-160); Percent Iron Saturation 31 % (15-50); Total Iron Binding Capacity 247 mcg/dL (228-428); Unsaturated Iron Binding 171 ug/dL
[2025-05-31 15:21] LABS: Ferritin 90 ng/mL (10-122)
== END 2025-05-31 11:34 | disposition home or self-care (01) ==
LOC: HO.CHCLDS 11:33
PROVIDERS: Visit Provider Registered Nurse
DX: I95.9 Hypotension, unspecified (principal)
CPT/HCPCS: 36415; 82306; 82728; 83540; 85025; 85610